=== PATIENT | female | born 1940 | race Caucasian/White ===

== ENCOUNTER 2019-10-21 20:27 | Emergency (ER) | payer MEDICARE, OTHER ==
[2019-10-21] MEDS ORDERED: IV NORMAL SALINE 1,000ML 1,000 ML IV ONE (20:45)
[2019-10-21 21:26] LABS: ALBUMIN/GLOBULIN RATIO 0.8 (1.0-1.7); CALCIUM 8.6 mg/dL (8.5-10.1); CREATININE 0.8 mg/dL (0.6-1.0); GFR 69.4; POTASSIUM 4.5 mmol/L (3.5-5.1); TOTAL BILIRUBIN 0.2 mg/dL (0.2-1.0); TOTAL PROTEIN 6.8 g/dL (6.4-8.2)
[2019-10-21] MEDS ORDERED: levETIRAcetam 500 MG/5 ML VIAL IV ONE (21:34)
[2019-10-21] MEDS ORDERED: IV NORMAL SALINE 100ML 100 ML ONE (21:34)
[2019-10-21 21:37] LABS: PHENY 7.4 mcg/mL (10.0-20.0)
[2019-10-21 23:00] VITALS: BP 169/67
[2019-10-21 23:00] LABS: BILIRUBIN,URINE NEG (NEG); CLARITY,URINE CLEAR; COLOR,URINE STRAW; GLUCOSE,URINE NEG (NEG)
[2019-10-21] MEDS ORDERED: PHENYTOIN SODIUM EXTENDED 100 MG CAPSULE PO ONE (23:00)
[2019-10-21 23:01] LABS: BACTERIA,URINE MANY /HPF (0-FEW); NITRITE,URINE NEG (NEG); RBC,URINE 0 /HPF (0-2); UROBILINOGEN,URINE 0.2 mg/dL (0.2 mg/dL)
[2019-10-21] MEDS ORDERED: CEPH500T PO (23:04)
[2019-10-21] MEDS ORDERED: CEPHALEXIN 250 MG CAPSULE PO ONE (23:30)
--- NOTE | 2019-10-21 23:44 | PHYS DOC ---
Past History Past Medical History: High Cholesterol, Hypertension, Seizure Past Surgical History: No Surgical History Alcohol Use: None Drug Use: None Adult General Chief Complaint Chief Complaint: SEIZURE HPI HPI Patient is a 70-year-old female known epilepsy brought in by embolus after a witnessed seizure normally her takes care of her after she has a seizure which happens once every 2 or 3 months but he got a hip fracture a couple weeks ago so the son is taking care of her now and when he saw the seizure he called 911 he helped her during the seizure there was no head trauma she has now basically back to baseline and has baseline mild confusion no recent illnesses denies fever or vomiting compliant with Dilantin and Keppra Review of Systems Review of Systems Constitutional: Denies fever or chills [] Eyes: Denies change in visual acuity, redness, or eye pain [] HENT: Denies nasal congestion or sore throat [] Respiratory: Denies cough or shortness of breath [] Cardiovascular: No additional information not addressed in HPI [] GI: Denies abdominal pain, nausea, vomiting, bloody stools or diarrhea [] : Denies dysuria or hematuria [] Musculoskeletal: Denies back pain or joint pain [] Integument: Denies rash or skin lesions [] Neurologic: Denies headache, focal weakness or sensory changes [] Endocrine: Denies polyuria or polydipsia [] All other systems were reviewed and found to be within normal limits, except as documented in this note. Current Medications Current Medications Current Medications Medications (Trade) Dose Ordered Sig/Ajay Start Time Stop Time Status Last Admin Dose Admin Cephalexin HCl (Keflex) 500 mg 1X ONCE 10/21/19 23:30 10/21/19 23:31 DC 10/21/19 23:07 500 MG Levetiracetam (Keppra) 500 mg STK-MED ONCE 10/21/19 21:34 10/21/19 21:34 DC Levetiracetam 500 mg/Sodium Chloride 100 ml @ 400 mls/hr 1X ONCE 10/21/19 21:30 10/21/19 21:44 DC 10/21/19 21:39 400 MLS/HR Phenytoin Sodium (Dilantin) 300 mg 1X ONCE 10/21/19 23:00 10/21/19 23:01 DC 10/21/19 22:49 300 MG Sodium Chloride 100 ml @ As Directed STK-MED ONCE 10/21/19 21:34 10/21/19 21:34 DC Allergies Allergies Allergies Coded Allergies Type Severity Reaction Last Updated Verified No Known Drug Allergies 10/21/19 No Physical Exam Physical Exam Constitutional: Well developed, well nourished, no acute distress, non-toxic appearance. [] HENT: Normocephalic, atraumatic, bilateral external ears normal, oropharynx moist, no oral exudates, nose normal. [] Eyes: PERRLA, EOMI, conjunctiva normal, no discharge. [] Neck: Normal range of motion, no tenderness, supple, no stridor. [] Cardiovascular:Heart rate regular rhythm, no murmur [] Lungs & Thorax: Bilateral breath sounds clear to auscultation [] Abdomen: Bowel sounds normal, soft, no tenderness, no masses, no pulsatile masses. [] Skin: Warm, dry, no erythema, no rash. [] Extremities: No tenderness, no cyanosis, no clubbing, ROM intact, no edema. [] Neurologic: Alert and o responsive moving all extremities mild tremor noted at baseline cranial nerves intact, normal motor function, normal sensory function, no focal deficits noted. [] Psychologic: Affect normal, judgement normal, mood normal. [] Current Patient Data Vital Signs Vital Signs Date Time Temp Pulse Resp B/P (MAP) Pulse Ox O2 Delivery O2 Flow Rate FiO2 10/21/19 20:27 98.5 94 18 98 Nasal Cannula 2.0 * None Temperature (Fahrenheit): * 98.5 degrees F (97.6-99.5) Patient Temperature * 98.5 degrees F (97.5-99.5) Temperature Source * Oral Blood Pressure Systolic * 189 mm Hg (100-140) H Blood Pressure Diastolic * 90 mm Hg (60-100) Blood Pressure Mean * 123 mm Hg Blood Pressure Location * Left Arm Blood Pressure Source * Automatic Cuff Pulse Rate * 94 beats per minute (60-90) H Pulse Assessment Method * Monitor Respiratory Rate * 18 breaths per minute (12-24) Oxygen Delivery Method * Nasal Cannula Oxygen Flow Rate Lab Results Laboratory Tests Test 10/21/19 20:30 10/21/19 20:50 10/21/19 22:00 Phenytoin (Dilantin) Level 7.4 mcg/mL (10.0-20.0) L Phenytoin Last Dose Date 10/20/19 Phenytoin Last Dose Time 2100 Sodium Level 135 mmol/L (136-145) L Potassium Level 4.5 mmol/L (3.5-5.1) Chloride Level 98 mmol/L (98-107) Carbon Dioxide Level 31 mmol/L (21-32) Anion Gap 6 (6-14) Blood Urea Nitrogen 26 mg/dL (7-20) H Creatinine 0.8 mg/dL (0.6-1.0) Estimated GFR (Cockcroft-Gault) 69.4 BUN/Creatinine Ratio 33 (6-20) H Glucose Level 123 mg/dL (70-99) H Calcium Level 8.6 mg/dL (8.5-10.1) Total Bilirubin 0.2 mg/dL (0.2-1.0) Aspartate Amino Transferase (AST) 27 U/L (15-37) Alanine Aminotransferase (ALT) 28 U/L (14-59) Alkaline Phosphatase 113 U/L (46-116) Total Protein 6.8 g/dL (6.4-8.2) Albumin 3.0 g/dL (3.4-5.0) L Albumin/Globulin Ratio 0.8 (1.0-1.7) L Urine Collection Type U cath Urine Color Straw Urine Clarity Clear Urine pH 7.0 Urine Specific [place] 1.015 Urine Protein Neg (NEG-TRACE) Urine Glucose (UA) Neg mg/dL (NEG) Urine Ketones (Stick) Neg mg/dL (NEG) Urine Blood Neg (NEG) Urine Nitrite Neg (NEG) Urine Bilirubin Neg (NEG) Urine Urobilinogen Dipstick 0.2 mg/dL (0.2 mg/dL) Urine Leukocyte Esterase Mod (NEG) Urine RBC 0 /HPF (0-2) Urine WBC 11-20 /HPF (0-4) Urine Squamous Epithelial Cells None /LPF Urine Bacteria Many /HPF (0-FEW) EKG EKG [] Radiology/Procedures Radiology/Procedures [] Course & Med Decision Making Course & Med Decision Making Pertinent Labs and Imaging studies reviewed. (See chart for details) []Dilantin level was just slightly low we did give her next dose in the emergency room for now continue current regimen recommended follow-up with primary neurologist in the next week or so to review medication dosages patient and son are agreeable evidence of a possible mild urinary tract infection on the catheter urine sample which could be lowering the seizure threshold so they were prescribed Keflex for that return precautions discussed and they voiced understanding Pratik Disclaimer Pratik Disclaimer This electronic medical record was generated, in whole or in part, using a voice recognition dictation system. Departure Departure: Impression: Primary Impression: UTI (urinary tract infection) Additional Impression: Seizure Disposition: 01 HOME, SELF-CARE Condition: STABLE Patient Instructions: Seizure, Adult, [id number] Scripts Cephalexin (CEPHALEXIN) 500 Mg Tablet 1 TAB PO QID for uti, #40 TAB Prov: CORBY CABRERA MD 10/21/19 Problem Qualifiers CORBY CABRERA MD Oct 21, 2019 23:44
[2019-11-29] MEDS ORDERED: LINE600T12 PO (16:28)
== END 2019-10-21 23:24 | disposition home or self-care (01) ==
LOC: ER 20:27
DX: G40.909 Epilepsy, unspecified, not intractable, without status epilepticus (principal); N39.0 Urinary tract infection, site not specified; E78.00 Pure hypercholesterolemia, unspecified; I10 Essential (primary) hypertension; Z86.73 Personal history of transient ischemic attack (TIA), and cerebral infarction without residual deficits
CPT/HCPCS: 36415; 80053; 80185; 81001; 87086; 87186; 96361; 96365; 99285; J1953; P9612; J7030

== ENCOUNTER 2019-11-08 14:05 | Inpatient (IN) | payer MEDICARE, OTHER ==
[~2019-11-08] VITALS: Ht 175.3 cm; Wt 65.9 kg
[~2019-11-08 14:05] MED LIST: CEPH500T PO
[2019-11-08 14:42] LABS: BASO % 0 % (0-3); EOS % 0 % (0-3); HEMATOCRIT 34.7 % (36.0-47.0); HEMOGLOBIN 11.5 g/dL (12.0-15.5); LYMPH # 0.4 x10^3/uL (1.0-4.8); LYMPH % 2 % (24-48); MEAN CORPUSCULAR HEMOGLOBIN 31 pg (25-35); MEAN CORPUSCULAR HGB CONC 33 g/dL (31-37); MEAN CORPUSCULAR VOLUME 92 fL (79-100); MONO # 1.7 x10^3/uL (0.0-1.1); MONO % 9 % (0-9); NEUT # 17.4 x10^3uL (1.8-7.7); NEUT % 89 % (31-73); PLATELET COUNT 276 x10^3/uL (140-400); RED BLOOD COUNT 3.76 x10^6/uL (3.50-5.40); RED CELL DISTRIBUTION WIDTH 13.4 % (11.5-14.5); WHITE BLOOD COUNT 19.7 x10^3/uL (4.0-11.0)
[2019-11-08 14:53] LABS: ANION GAP 11 (6-14); BLOOD UREA NITROGEN 31 mg/dL (7-20); BUN/CREATININE RATIO 28 (6-20); CALCIUM 8.6 mg/dL (8.5-10.1); CARBON DIOXIDE 26 mmol/L (21-32); CHLORIDE 98 mmol/L (98-107); CREATININE 1.1 mg/dL (0.6-1.0); GLUCOSE 96 mg/dL (70-99); POTASSIUM 3.8 mmol/L (3.5-5.1); SODIUM 135 mmol/L (136-145)
[2019-11-08 15:08] LABS: ALBUMIN 3.1 g/dL (3.4-5.0); ALBUMIN/GLOBULIN RATIO 0.9 (1.0-1.7); ALK PHOS 113 U/L (46-116); ALT (SGPT) 44 U/L (14-59); AST (SGOT) 105 U/L (15-37); MAGNESIUM 1.9 mg/dL (1.8-2.4); PHENY 8.9 mcg/mL (10.0-20.0); TOTAL BILIRUBIN 0.4 mg/dL (0.2-1.0); TOTAL PROTEIN 6.6 g/dL (6.4-8.2)
[2019-11-08] MEDS ORDERED: IV NORMAL SALINE 1,000ML 1,000 ML IV ONE ×2 (15:30→17:30)
--- NOTE | 2019-11-08 15:39 | RAD ---
CHEST AP ONLY 11/08/2019 3:15 PM INDICATION: Shortness of air COMPARISON: 09/06/2013 TECHNIQUE: Portable frontal view of the chest is provided. FINDINGS: The cardiomediastinal silhouette is similar in appearance. Lungs are clear. There are no significant pleural effusions. There is no pulmonary vascular congestion. No pneumothorax. IMPRESSION: There is no acute cardiopulmonary process. Electronically signed by: Charleen Hickman MD (11/08/2019 3:36 PM) [id number]
[2019-11-08] MEDS ORDERED: DIPHTH,PERTUSS(ACELL),TET TOX 0.5 ML DISP.SYRIN. VAX IM ONE (15:45)
--- NOTE | 2019-11-08 15:54 | RAD ---
CT HEAD AND CERVICAL SPINE WO Date: 11/08/2019 3:15 PM Clinical Indication: Seizure, fall, pain Comparison: 09/04/2016. Technique: 5 mm axial tomographic images were obtained of the head without contrast. These were viewed on brain and bone windows. Noncontrast CT of the cervical spine was performed. Sagittal and coronal reformats were performed and evaluated. One or more of the following dose reduction techniques were utilized: Automated exposure control (AEC), Adjustment of mA and/or kV according to patient size, Use of iterative reconstruction technique such as ASiR, CT scan done according to ALARA and image gently/image wisely HEAD FINDINGS: Mild generalized cerebral and cerebellar volume loss. Mild nonspecific periventricular hypoattenuation, most commonly seen with chronic small vessel ischemic disease. No intra- or extra-axial mass or fluid collection. No acute hemorrhage. The ventricles are normal in size, shape, and morphology. The austin-white matter junction is normal. The basilar cisterns are patent. The visualized paranasal sinuses are normal. The visualized portions of the orbits and globes are normal. The mastoid air cells are clear. No aggressive osseous lesion or fracture. CERVICAL SPINE FINDINGS: Reversal of the cervical lordosis centered at C5. Trace anterolisthesis at C2-3 and C3-4. 4 mm anterolisthesis at C4-5. No acute fracture. No aggressive lytic or blastic osseous lesions. Severe multilevel degenerative disc space height loss. Fusion across the facet joints at C2-3, C3-4, and T2-3. Multilevel mild and moderate spinal canal stenosis secondary to disc protrusions and marginal osteophytes, moderate to severe at C4-5. Multilevel moderate to severe neuroforaminal narrowing secondary to uncovertebral arthrosis. Multilevel moderate to severe facet arthrosis. 1.4 cm left thyroid nodule. No cervical lymphadenopathy. Carotid artery atherosclerosis. The visualized aerodigestive tract is normal. The visualized portions of the lungs are clear. IMPRESSION: 1. No acute intracranial process. 2. No acute cervical spine fracture. 3. Advanced cervical spondylosis. Electronically signed by: Jaron Islas MD (11/08/2019 3:51 PM) [facility]
[2019-11-08] MEDS ORDERED: FOSPHENYTOIN 1,000 MG in IV NORMAL SALINE 50ML 50 ML IV ONE (16:15)
--- NOTE | 2019-11-08 16:36 | PHYS DOC ---
Past History Past Medical History: CVA, Diabetes, Hypertension, Seizure, Other Additional Past Medical Histor: HLD Past Surgical History: No Surgical History Alcohol Use: None Drug Use: None Adult General Chief Complaint Chief Complaint: WEAKNESS/GENERALIZED HPI HPI Patient is a 78-year-old female who was brought here from home by EMS due to weakness. Patient has history of epilepsy, she is on Dilantin at home. Patient says she took her medication yesterday but she had a seizure last night. SHe feel really weak and tired afterward. Patient was found on the floor this morning by her . She could not get up due to weakness. Patient denies any headache, no neck pain, no chest pain, no abdominal pain, no pelvic pain, no extremity or pelvic pain. She just feel weak and tired. She denies any fever. She says she had not taken her medication today. aLL OTHER ros IS NEGATIVE UNLESS OTHERWISE NOTED IN hpi Review of Systems Review of Systems See above Current Medications Current Medications Current Medications Medications (Trade) Dose Ordered Sig/Ajay Start Time Stop Time Status Last Admin Dose Admin Diphtheria/ Tetanus/Acell Pertussis (Boostrix) 0.5 ml ONCE ONCE 11/08/19 15:45 11/08/19 15:46 DC 11/08/19 16:05 0.5 ML Fosphenytoin Sodium 1000 mg/ Sodium Chloride 70 ml @ 280 mls/hr 1X ONCE 11/08/19 16:15 11/08/19 16:29 DC Sodium Chloride 1,000 ml @ 1,000 mls/hr 1X ONCE 11/08/19 15:30 11/08/19 16:29 DC 11/08/19 16:04 1,000 MLS/HR Allergies Allergies Allergies Coded Allergies Type Severity Reaction Last Updated Verified No Known Drug Allergies 10/21/19 No Physical Exam Physical Exam See above Constitutional: Well developed, well nourished, no acute distress, non-toxic appearance. [] HENT: Normocephalic, atraumatic, bilateral external ears normal, oropharynx moist, no oral exudates, nose normal. [] Eyes: PERRLA, EOMI, conjunctiva normal, no discharge. [] Neck: Normal range of motion, no tenderness, supple, no stridor. [] Cardiovascular:Heart rate regular rhythm, no murmur [] Lungs & Thorax: Bilateral breath sounds clear to auscultation [] Abdomen: Bowel sounds normal, soft, no tenderness, no masses, no pulsatile masses. [] Skin: HEMORRHAGIC RASH ON BOTH UPPER EXTREMITIES. SMALL SUPERFICIAL SKIN CONTUSION, ABRSION ON LEFT FOREARM, NO BONY TENDERNESS. Back: No tenderness, no CVA tenderness. [] Extremities: No tenderness, no cyanosis, no clubbing, ROM intact, no edema. [] Neurologic: Alert and oriented X 3, NORMAL SPEECH, normal sensory function, PATIENT CAN PUSH HER FEET DOWN BUT NOT ABLE TO RAISE BOTH LEGS UP DUE TO WEAKNESS, NO BONY TENDERNESS. Psychologic: Affect normal, judgement normal, mood normal. [] Current Patient Data Vital Signs Vital Signs Date Time Temp Pulse Resp B/P (MAP) Pulse Ox O2 Delivery O2 Flow Rate FiO2 11/08/19 16:05 78 18 135/78 (97) 98 11/08/19 14:27 98.4 Room Air Lab Results Laboratory Tests Test 11/08/19 14:15 White Blood Count 19.7 x10^3/uL (4.0-11.0) H Red Blood Count 3.76 x10^6/uL (3.50-5.40) Hemoglobin 11.5 g/dL (12.0-15.5) L Hematocrit 34.7 % (36.0-47.0) L Mean Corpuscular Volume 92 fL (79-100) Mean Corpuscular Hemoglobin 31 pg (25-35) Mean Corpuscular Hemoglobin Concent 33 g/dL (31-37) Red Cell Distribution Width 13.4 % (11.5-14.5) Platelet Count 276 x10^3/uL (140-400) Neutrophils (%) (Auto) 89 % (31-73) H Lymphocytes (%) (Auto) 2 % (24-48) L Monocytes (%) (Auto) 9 % (0-9) Eosinophils (%) (Auto) 0 % (0-3) Basophils (%) (Auto) 0 % (0-3) Neutrophils # (Auto) 17.4 x10^3uL (1.8-7.7) H Lymphocytes # (Auto) 0.4 x10^3/uL (1.0-4.8) L Monocytes # (Auto) 1.7 x10^3/uL (0.0-1.1) H Eosinophils # (Auto) 0.0 x10^3/uL (0.0-0.7) Basophils # (Auto) 0.0 x10^3/uL (0.0-0.2) Sodium Level 135 mmol/L (136-145) L Potassium Level 3.8 mmol/L (3.5-5.1) Chloride Level 98 mmol/L (98-107) Carbon Dioxide Level 26 mmol/L (21-32) Anion Gap 11 (6-14) Blood Urea Nitrogen 31 mg/dL (7-20) H Creatinine 1.1 mg/dL (0.6-1.0) H Estimated GFR (Cockcroft-Gault) 48.0 BUN/Creatinine Ratio 28 (6-20) H Glucose Level 96 mg/dL (70-99) Calcium Level 8.6 mg/dL (8.5-10.1) Magnesium Level 1.9 mg/dL (1.8-2.4) Total Bilirubin 0.4 mg/dL (0.2-1.0) Aspartate Amino Transferase (AST) 105 U/L (15-37) H Alanine Aminotransferase (ALT) 44 U/L (14-59) Alkaline Phosphatase 113 U/L (46-116) Creatine Kinase 5808 U/L (26-192) H Troponin I Quantitative 0.380 ng/mL (0-0.055) H Total Protein 6.6 g/dL (6.4-8.2) Albumin 3.1 g/dL (3.4-5.0) L Albumin/Globulin Ratio 0.9 (1.0-1.7) L Phenytoin (Dilantin) Level 8.9 mcg/mL (10.0-20.0) L Phenytoin Last Dose Date 11/07/19 Phenytoin Last Dose Time 1200 EKG EKG EKG RATE OF 78 BPM, NO STEMI, READ AT 0310 PM Radiology/Procedures Radiology/Procedures [][address] [address] IMAGING REPORT Signed PATIENT: GRABIEL DUKES ACCOUNT: [id number] : 1940 LOCATION: ER AGE: 78 SEX: F EXAM STATUS: REG ER ORD. PHYSICIAN: FLORY SMITH DO REASON: HAD SEIZURE, FELL DOWN, HEADACHE, NECK PAIN PROCEDURE: CT HEAD AND CERVICAL SPINE WO CT HEAD AND CERVICAL SPINE WO Date: 11/08/2019 3:15 PM Clinical Indication: Seizure, fall, pain Comparison: 09/04/2016. Technique: 5 mm axial tomographic images were obtained of the head without contrast. These were viewed on brain and bone windows. Noncontrast CT of the cervical spine was performed. Sagittal and coronal reformats were performed and evaluated. One or more of the following dose reduction techniques were utilized: Automated exposure control (AEC), Adjustment of mA and/or kV according to patient size, Use of iterative reconstruction technique such as ASiR, CT scan done according to ALARA and image gently/image wisely HEAD FINDINGS: Mild generalized cerebral and cerebellar volume loss. Mild nonspecific periventricular hypoattenuation, most commonly seen with chronic small vessel ischemic disease. No intra- or extra-axial mass or fluid collection. No acute hemorrhage. The ventricles are normal in size, shape, and morphology. The austin-white matter junction is normal. The basilar cisterns are patent. The visualized paranasal sinuses are normal. The visualized portions of the orbits and globes are normal. The mastoid air cells are clear. No aggressive osseous lesion or fracture. CERVICAL SPINE FINDINGS: Reversal of the cervical lordosis centered at C5. Trace anterolisthesis at C2-3 and C3-4. 4 mm anterolisthesis at C4-5. No acute fracture. No aggressive lytic or blastic osseous lesions. Severe multilevel degenerative disc space height loss. Fusion across the facet joints at C2-3, C3-4, and T2-3. Multilevel mild and moderate spinal canal stenosis secondary to disc protrusions and marginal osteophytes, moderate to severe at C4-5. Multilevel moderate to severe neuroforaminal narrowing secondary to uncovertebral arthrosis. Multilevel moderate to severe facet arthrosis. 1.4 cm left thyroid nodule. No cervical lymphadenopathy. Carotid artery atherosclerosis. The visualized aerodigestive tract is normal. The visualized portions of the lungs are clear. IMPRESSION: 1. No acute intracranial process. 2. No acute cervical spine fracture. 3. Advanced cervical spondylosis. Electronically signed by: Sky Islas MD (11/08/2019 3:51 PM) [facility] DICTATED AND SIGNED BY: SKY ISLAS MD DATE: 11/08/19 1551 CC: AMARIS NICHOLE MD; FLORY SMITH DO ~ [place] [address] IMAGING REPORT Signed PATIENT: GRABIEL DUKES ACCOUNT: [id number] : 1940 LOCATION: ER AGE: 78 SEX: F EXAM STATUS: REG ER ORD. PHYSICIAN: FLORY SMITH DO REASON: SOA PROCEDURE: CHEST AP ONLY CHEST AP ONLY 11/08/2019 3:15 PM INDICATION: Shortness of air COMPARISON: 09/06/2013 TECHNIQUE: Portable frontal view of the chest is provided. FINDINGS: The cardiomediastinal silhouette is similar in appearance. Lungs are clear. There are no significant pleural effusions. There is no pulmonary vascular congestion. No pneumothorax. IMPRESSION: There is no acute cardiopulmonary process. Electronically signed by: River Ralph MD (11/08/2019 3:36 PM) [facility] DICTATED AND SIGNED BY: RIVER RALPH MD DATE: 11/08/19 1536 CC: AMARIS NICHOLE MD; FLORY SMITH DO ~ Course & Med Decision Making Course & Med Decision Making Pertinent Labs and Imaging studies reviewed. (See chart for details) [] Dragon Disclaimer Dragon Disclaimer This electronic medical record was generated, in whole or in part, using a voice recognition dictation system. Departure Departure: Impression: Primary Impression: Seizure Additional Impression: Rhabdomyolysis Disposition: ADMITTED INPATIENT Admitting Physician: Cali Lopez Condition: STABLE Referrals: AMARIS NICHOLE MD (PCP) Problem Qualifiers FLORY SMITH DO Nov 08, 2019 16:36
[2019-11-08 17:29] LABS: BILIRUBIN,URINE NEG (NEG); CLARITY,URINE HAZY; COLOR,URINE YELLOW; GLUCOSE,URINE NEG (NEG); NITRITE,URINE NEG (NEG); UROBILINOGEN,URINE 0.2 mg/dL (0.2 mg/dL)
[2019-11-08 17:30] LABS: BACTERIA,URINE MOD /HPF (0-FEW); HYALINE CASTS, URINE OCC /HPF; SQUAMOUS EPITHELIAL CELL,UR OCC /LPF
[2019-11-08] MEDS ORDERED: ONDANSETRON PF 4 MG/2 ML VIAL. IV PRN (17:30)
[2019-11-08] MEDS: IV NORMAL SALINE 1,000ML 1,000 ML IV SCH ×2 (17:35→20:47)
[2019-11-08 19:20] VITALS: BP 144/62
--- NOTE | 2019-11-08 19:20 | NUR ---
Pt admitted from ER to ICU bed 4 via gurney, accompanied by EMS and nursing staff. Pt here for Seizure, Rhabdo, and weakness. Pt very forgetful and confused, currently asking about "Ishmael's () medications." Admission assessment completed. Dominick history & home medications reviewed with pt's son Faheem over the phone since pt in confused. Faheem stated that his "mother followed Ishmael into the bathroom at home around 0200 and fell in the bathroom. Dad was not able to help her get up since he had a recent hip sx, so mom laid on the floor till I got there to help around 0800." Pt with multiple skin tears and extensive bruising to both upper arms and small abrasion to right bashir. Pt oriented to room, bed and call light but needs frequent reminders r/t confusion. Pt refused Flu vaccine. SCDs for VTE. Pt lives at home with and requires lots of help from Faheem (son). Dr Caballero consult placed. PT/OT and CM consulted. Bed padded for Seizure precautions. Bed alarm in place.
[2019-11-08] MEDS ORDERED: AMLO10TA8 PO (19:48)
[2019-11-08] MEDS ORDERED: PHEN100C4 PO (19:48)
[2019-11-08] MEDS ORDERED: LISI10TA2 PO (19:48)
[2019-11-08] MEDS ORDERED: ATOR10TA60 PO (19:48)
[2019-11-08] MEDS ORDERED: LEVE10007 PO (19:48)
[2019-11-08 20:05] VITALS: BP 130/62
[2019-11-08] MEDS: levETIRAcetam 500 MG TABLET PO SCH (20:47)
[2019-11-08] MEDS: PHENYTOIN SODIUM EXTENDED 100 MG CAPSULE PO SCH (20:47)
[2019-11-08 21:00] VITALS: BP 147/55
[2019-11-08] MEDS ORDERED: ATORVASTATIN CALCIUM 10 MG TABLET. PO SCH (21:00)
[2019-11-08 23:00] VITALS: BP 153/67
--- NOTE | 2019-11-08 23:25 | NUR ---
Pt yelled out "help...help...help me". When staff entered room Pt started shaking all four extremities and became very agitated and confused. Pt did talk during this 'shaking episode' stating "move the cranberry juice" & "put his legs down". Pt reaching for objects in the air that are not there. When pt was talked to she did calm down and stopped shaking but would start back up again if she was not distracted by staff. PRN Ativan given. Pt now resting comfortable.
[2019-11-08 23:35] VITALS: BP 148/70
[2019-11-09] VITALS (10 sets, daily range): BP systolic 127–168; BP diastolic 48–80
[2019-11-09 00:12] LABS: % BASOS 1 % (0-3); % LYMPHS 4 % (24-48); % MONOS 6 % (0-10); % SEGS 89 % (35-66)
[2019-11-09 00:14] LABS: ANISOCYTOSIS SLIGHT; PLT ESTIMATE ADEQUATE (ADEQUATE)
--- NOTE | 2019-11-09 01:00 | EKG ---
[address] [address] Test Date: 2019-11-08 Test Time: 15:09:59 Pat Name: GRABIEL DUKES Department: Room: Gender: [employer] Re[employer]ist: : 1940 Requested By: FLORY SMITH Order Number: [id number] Reading MD: Measurements Intervals [place] Rate: 78 P: 76 [place]: 160 QRS: 60 QRSD: 86 T: 69 QT: 410 QTc: 471 Interpretive Statements SINUS RHYTHM NORMAL ECG RI6.01 No previous ECG available for comparison
[2019-11-09] MEDS: IV NORMAL SALINE 1,000ML 1,000 ML IV SCH (05:45)
[2019-11-09 06:22] LABS: BASO % 1 % (0-3); EOS % 0 % (0-3); HEMATOCRIT 31.9 % (36.0-47.0); HEMOGLOBIN 10.7 g/dL (12.0-15.5); LYMPH # 1.1 x10^3/uL (1.0-4.8); LYMPH % 12 % (24-48); MEAN CORPUSCULAR HEMOGLOBIN 31 pg (25-35); MEAN CORPUSCULAR HGB CONC 34 g/dL (31-37); MEAN CORPUSCULAR VOLUME 93 fL (79-100); MONO % 11 % (0-9); NEUT % 76 % (31-73); PLATELET COUNT 229 x10^3/uL (140-400); RED BLOOD COUNT 3.42 x10^6/uL (3.50-5.40); WHITE BLOOD COUNT 9.2 x10^3/uL (4.0-11.0)
[2019-11-09 06:41] LABS: ALBUMIN 2.7 g/dL (3.4-5.0); ALBUMIN/GLOBULIN RATIO 0.8 (1.0-1.7); CALCIUM 7.9 mg/dL (8.5-10.1); CREATININE 0.8 mg/dL (0.6-1.0); GFR 69.4; POTASSIUM 3.4 mmol/L (3.5-5.1); TOTAL BILIRUBIN 0.3 mg/dL (0.2-1.0)
[2019-11-09] MEDS: LISINOPRIL 10 MG TABLET PO SCH (12:01)
[2019-11-09] MEDS: amLODIPine BESYLATE 10 MG TABLET PO SCH (12:01)
[2019-11-09] MEDS: levETIRAcetam 500 MG TABLET PO SCH ×2 (12:01→20:48)
[2019-11-09] MEDS: POTASSIUM CL 20MEQ D5-0.9%NACL 1,000 ML IV SCH (15:01)
--- NOTE | 2019-11-09 15:11 | HP ---
ADMIT DATE: 11/08/2019 HISTORY OF PRESENT ILLNESS: The patient is a 78-year-old female patient, who was brought into the Emergency Room by EMS due to weakness. The patient has a history of epilepsy. She is on Dilantin at home. She stated that she took her medication yesterday, but has had a seizure last night. She felt really weak and tired afterward. The patient was found on the floor this morning by her . She could not get up due to weakness. The patient denies any headache, neck pain, chest pain, abdominal pain, just feels weak and tired. She was extensively investigated in the Emergency Room and her lab work showed that her white cell count was high at 19,700. Her chemistry showed that her BUN was slightly elevated and obviously dehydrated. Her CK was high at 5800. Her troponin was 0.38 and her Dilantin level was only 8.9. Urinalysis was unremarkable; however, chest x-ray showed that there was no significant pleural effusion, no pulmonary vascular congestion or pneumothorax. The patient was admitted with diagnosis of breakthrough seizures as well as mild rhabdomyolysis. She was given a loading dose of fosphenytoin and was admitted to continue on IV fluid, continue on her Keppra as well as all other medications. PAST MEDICAL HISTORY: Significant for hypertension, seizure disorder, osteoarthritis, senile macular degeneration. PAST SURGICAL HISTORY: Significant for tonsillectomy. FAMILY HISTORY: Noncontributory. SOCIAL HISTORY: She lives with her . She does not smoke, drink alcohol or use recreational drugs. ALLERGIES: She has no known drug allergies. MEDICATIONS: She is currently on following medications: She is on atorvastatin calcium 10 mg at bedtime, lisinopril 10 mg daily, phenytoin sodium 300 mg at bedtime, levetiracetam 1000 mg twice a day. REVIEW OF SYSTEMS: Unobtainable. PHYSICAL EXAMINATION: GENERAL: On arrival to the Emergency Room, the patient looked well and was clearly in no apparent respiratory distress, pale, but no jaundice, cyanosis or thyromegaly. No jugular venous distention. No lower limb edema. VITAL SIGNS: Her heart rate was 80, blood pressure 135/78, temperature was 98.1, respiratory rate was 20, and oxygen saturation was 97%. HEAD, EYES, EARS, NOSE AND THROAT: Showed normocephalic, atraumatic. NECK: Supple. HEART: Showed normal first and second heart sounds. No gallop, rub or murmur. CHEST: Clear to auscultation. No crepitation or rhonchi. ABDOMEN: Distended, soft, nontender. NEUROLOGIC: She was alert, oriented. She apparently has been complaining of weakness, mostly on the left side more than the right. LABORATORY DATA: Her lab work on arrival to the Emergency Room yesterday showed a white cell count of 19,700, hemoglobin 11.5, hematocrit 34.7, MCV 92 and platelet count 276,000 with normal manual differential. Her chemistry showed a serum sodium 135, potassium 3.8, chloride 98, bicarbonate 26, anion gap of 11, BUN 31, creatinine 1.1, estimated GFR was 48 mL per minute. Her glucose was 96, calcium was 8.6, magnesium 1.9. Total bilirubin, ALT, alkaline phosphatase normal. AST slightly elevated. Her CK was high at 5800. First troponin was 0.380. Total protein was 6.6, albumin was 3.1. Her urinalysis showed the urine was yellow, hazy with a pH of 6, specific gravity of 1.015. The urine was negative for protein, glucose, there was small amount of ketones, moderate amount of blood, negative for nitrite, there is trace of leukocyte esterase, 1-2 rbc's, 1-4 wbc's, moderate amount of bacteria and her phenytoin level was 9.8 mcg/mL with therapeutic range between 10 and 20. RADIOGRAPHIC DATA: Her CT scan of the head and cervical spine showed that the patient has mild generalized cerebral and cerebellar volume loss, mild nonspecific periventricular hypoattenuation most commonly seen with chronic small vessel ischemic disease. There is no intra or extraaxial mass or fluid collection or acute hemorrhage. The ventricles are normal in size, shape and morphology. The austin-white matter junction is normal. The basilar cisterns are patent. The visualized paranasal sinuses are normal. The visualized portion of the orbits and globes are normal. The mastoid air cells are clear. No aggressive osseous lesions or fracture. The CT scan of the cervical spine showed that reversal of cervical lordosis centered at C5, trace anterolisthesis at C2-C3 and C3-C4, 4 mm anterolisthesis at C4-C5, no acute fracture, no aggressive lytic or blastic osseous lesion. Severe multilevel degenerative disk space height loss, fusion across the facet joint of C2-C3, C3-C4 and T2-T3; multilevel mild and moderate spinal canal stenosis secondary to disk protrusion and marginal osteophytes moderate to severe at C4-C5, multilevel moderate to severe neural foraminal narrowing secondary to uncovertebral arthrosis, multilevel moderate to severe facet arthrosis. It has 1.4 cm left thyroid nodule. No cervical lymphadenopathy, carotid artery atherosclerosis visualized, aerodigestive tract is normal. ASSESSMENT AND PLAN: The patient was admitted with weakness, breakthrough seizures and rhabdomyolysis. We will put her back on her antiepileptic medication. Continue with all other medication. Continue with intravenous fluids for rhabdomyolysis and dehydration. We will consult Physical and Occupational Therapy and will consult Dr. Caballero to assist with her management. PRIYANKA BROWN MD DR: JOHNNY/julia JOB#: [id number] / [id number]
--- NOTE | 2019-11-09 18:06 | NUR ---
Patient has been alert throughout the day but is confused and disoriented. Patient is a poor historian and is unable to accurately articulate current affairs or past medical history. Patient has been pleasant and cooperative throughout the day but as the evening progresses she seems to display signs and symptoms of "Sundowners" with some aggressive behaviors appearing. Patient is very weak and unstable and requires 2 person assist for any transfers or ambulation. Patients son came to visit today and he did inquire about rehab upon discharge and this information was passed onto Dr Lopez.
[2019-11-09] MEDS: PHENYTOIN SODIUM EXTENDED 100 MG CAPSULE PO SCH (20:48)
--- NOTE | 2019-11-09 20:54 | PN ---
DATE: 11/09/2019 SUBJECTIVE: The patient was admitted yesterday for fall, breakthrough seizures and mild rhabdomyolysis. She was given a loading dose of fosphenytoin and was continued on her Keppra and her phenytoin and all her other medications. I saw her today, she was awake, alert, but extremely confused. Her short-term memory is extremely poor. She continued to complain of weakness, more so on the left side than right. PHYSICAL EXAMINATION: GENERAL: When I examined her, she looked pale, but no jaundice or cyanosis. No lymphadenopathy, no thyromegaly. No jugular venous distention. No limb edema. VITAL SIGNS: Her heart rate was 79, blood pressure was 168/80, temperature 97.7, respiratory rate was 20, and oxygen saturation was 94%. HEAD, EYES, EARS, NOSE AND THROAT: Normocephalic, atraumatic. NECK: Supple. CARDIAC: Normal first and second heart sounds with no gallop, rub or murmur. CHEST: Showed that she has a central trachea, equal bilateral expansion, air entry, vesicular sounds. I could not appreciate any crepitation or rhonchi. ABDOMEN: Distended, soft, nontender. No guarding or rigidity. No organomegaly. All hernial orifice intact. Bowel sounds normal. NEUROLOGIC: She is awake, alert, but very confused; however, all her cranial nerves are intact. She moves extremities without difficulty. She does have weakness in the left side. Her intake over the last 24 hours and output are incompletely recorded. LABORATORY DATA: Her lab work this morning showed a serum sodium 138, potassium 3.4, chloride 103, bicarbonate 25, anion gap of 10, BUN 22, creatinine 0.8, estimated GFR was 69 mL per minute. Her glucose 72, calcium was 7.9. Total bilirubin, AST, ALT, alkaline phosphatase were normal. CK was down to 4000. She has 3 sets of troponins that are trending down and her total protein was 6, albumin was 2.7. PLAN: My plan is to continue with IV fluid. I will probably change the normal saline with some potassium and we will get the physical and occupational therapy. The patient was too weak to go back home. She will benefit from rehabilitation probably in a swing bed. PRIYANKA BROWN MD DR: JOHNNY/julia JOB#: [id number] / [id number]
[2019-11-10] VITALS (7 sets, daily range): BP systolic 160–191; BP diastolic 61–87
[2019-11-10] MEDS: POTASSIUM CL 20MEQ D5-0.9%NACL 1,000 ML IV SCH ×2 (01:20→11:04)
--- NOTE | 2019-11-10 03:42 | NUR ---
PATIENT UP TO CHAIR UNTIL READY FOR BED. HOARSE, BARKING COUGH WITH NO SPUTUM PRODUCTION. STATES WHEN SHE COUGHS, HER "TRACHEA COLLAPSES" AND SHE HAD TO GO TO TO HAVE HER LUNGS "VACCUMED OUT". [place] [facility] [place], NO BM THIS SHIFT. DENIES PAIN. REMAINS IN ISOLATION. WORKING TOWARDS POC GOALS. Addendum: 11/10/19 at 0346 by TONO CANTRELL RN RN DISREGARD PREVIOUS NOTE, WRONG PATIENT
--- NOTE | 2019-11-10 03:46 | NUR ---
PATIENT IN BED FOR ENTIRETY OF SHIFT. VERY CONFUSED AT TIMES, STATES SHE IS IN AT A HOTEL, ANOTHER TIME MENTIONS A FRIENDS HOUSE. REPEATEDLY ASKS WHERE HER IS. FREQUENT REORIENTING NEEDED. LAROSE DRAINING ADEQUATE AMOUNTS OF URINE. DENIES PAIN, SOA OR N/V. NOT PROGRESSING TOWARDS POC GOALS.
[2019-11-10] MEDS: amLODIPine BESYLATE 10 MG TABLET PO SCH (04:48)
[2019-11-10 06:47] LABS: HEMATOCRIT 35.5 % (36.0-47.0); HEMOGLOBIN 11.8 g/dL (12.0-15.5); RED BLOOD COUNT 3.86 x10^6/uL (3.50-5.40); RED CELL DISTRIBUTION WIDTH 13.7 % (11.5-14.5); WHITE BLOOD COUNT 10.6 x10^3/uL (4.0-11.0)
[2019-11-10 07:04] LABS: PHENY 24.2 mcg/mL (10.0-20.0)
[2019-11-10 07:14] LABS: ALBUMIN 2.7 g/dL (3.4-5.0); ALBUMIN/GLOBULIN RATIO 0.7 (1.0-1.7); CALCIUM 7.9 mg/dL (8.5-10.1); CREATININE 0.7 mg/dL (0.6-1.0); GFR 80.9; POTASSIUM 3.3 mmol/L (3.5-5.1); TOTAL BILIRUBIN 0.3 mg/dL (0.2-1.0); TOTAL PROTEIN 6.4 g/dL (6.4-8.2)
--- NOTE | 2019-11-10 07:29 | NUR ---
PT IS ALERT BUT CONFUSED AT THIS TIME; PT DOES NOT KNOW HER LOCATION, THE PRESIDENT AND WHY SHE IS IN THE HOSPITAL. PT STATES "I AM HERE FOR A STROKE, AND MY IS RIGHT THERE." PT'S IS NOT IN HER ROOM AT THIS TIME. PT IS HALLUCINATING AND SEEING THINGS ON THE WALL. PT IS PLEASANT AND COOPERATIVE. VSS STABLE TEMP- 99.1 BP- 190/92 RR-16 SPO2-96% RA. DENIES PAIN AT THIS TIME. WILL CTM.
[2019-11-10] MEDS: LISINOPRIL 10 MG TABLET PO SCH ×3 (07:32→19:48)
[2019-11-10] MEDS: levETIRAcetam 500 MG TABLET PO SCH ×2 (07:32→21:12)
--- NOTE | 2019-11-10 11:06 | CONS ---
DATE OF CONSULTATION: 11/09/2019 NEUROLOGY CONSULTATION REFERRING PHYSICIAN: Dr. Lopez. REASON FOR CONSULTATION: Breakthrough seizure. HISTORY OF PRESENT ILLNESS: This is a 78-year-old right-handed female who was admitted through Emergency Room after she presented with possible seizure-like activities, followed by generalized weakness. The found the patient on the morning of admission. EMS was activated and transferred the patient to Emergency Room weighing she has a complete evaluation. The patient has had a history of seizure of unknown etiology. Currently, she is unable to remember what happened exactly before the seizure. The patient at this time is not able to provide concrete information about her seizure activities. She has been on Dilantin, but Dilantin level in the Emergency Room was subtherapeutic. The patient was given a loading dose of fosphenytoin and continued with Keppra at 1000 twice daily. Since admission, the patient has not had any recurrent seizure. She received 1 Ativan last night. PAST MEDICAL HISTORY: Significant for seizure disorder of unknown etiology, hypertension, macular degeneration, and osteoarthritis. PAST SURGICAL HISTORY: Tonsillectomy. FAMILY HISTORY: Noncontributory. SOCIAL HISTORY: The patient lives with her . She denies smoking, alcohol drinking, or illicit drug use. CURRENT HOME MEDICATIONS: Phenytoin 300 mg at bedtime, levetiracetam 1000 mg twice daily, lisinopril 10 mg daily and atorvastatin calcium 10 mg at bedtime. ALLERGIES: No known drug allergies. REVIEW OF SYSTEMS: A 10-point review of system was performed as mentioned above in history of present illness. Otherwise, the patient denies any other medical or neurological complaints at this time. PHYSICAL EXAMINATION: GENERAL: Well-developed, well-nourished female in no acute distress. She weighs 61.2 kilos, the height is 69 inches. VITAL SIGNS: Blood pressure 128/56, respiratory rate 14, pulse is 67 and regular, oxygen saturation is 95% on room air. HEENT: Normocephalic, atraumatic, otherwise unremarkable. NECK: Supple. Negative for carotid bruit, lymphadenopathy or thyromegaly. LUNGS: Clear to A and P. CARDIOVASCULAR: Regular rate and rhythm. Normal S1, S2. There is no S3, S4 or murmur. ABDOMEN: Soft. Bowel sounds positive. EXTREMITIES: Negative for cyanosis, clubbing or pitting edema. NEUROLOGICAL EXAMINATION: MENTAL STATUS: The patient is alert and oriented to herself and place. Speech is fluent. There is no language dysfunction. Memory, judgment, and abstract thinking are fair. The patient denies hallucination or delusion. CRANIAL NERVES: Visual wasserman are full. The pupils are reactive to light and accommodation. Extraocular movements are intact. There is no nystagmus. There is no facial motor or sensory deficit. Hearing is intact bilaterally. The palate is elevated symmetrically. Sternocleidomastoid muscles are powerful bilaterally. The patient shrugs her shoulders symmetrically, protrudes her tongue in the midline without fasciculation or atrophy. MOTOR: No focal muscle bulk was seen. The tone is normal. The strength is 4/5 throughout. Sensory examination revealed normal pinprick, light touch, vibratory and position senses. Deep tendon reflexes were asymmetric and hypoactive with absent Achilles responses. Gait not tested. DIAGNOSTIC DATA: Chest x-ray revealed no acute cardiopulmonary process. Nonenhanced head CT scan revealed no acute intracranial process. Cervical spine CT scan revealed severe multilevel degenerative disk disease, more prominent at C4-C5, but no cervical spine fracture. These findings are consistent with advanced cervical spondylosis. LABORATORY DATA: CBC revealed white blood cells of 9200, hemoglobin is 10.7, hematocrit 31.9, platelet count 229. Chemistry revealed sodium of 138, potassium 3.4, chloride 103, CO2 of 25, BUN 22, creatinine 0.8, glucose 72, calcium 7.9. CPK is elevated at 4041. Troponin level is 0.192. BNP is high at 2399. Urinalysis is trace urinary leukocyte esterase with moderate bacteria. Phenytoin level at the day of admission was subtherapeutic at 8.9. IMPRESSION: 1. Generalized weakness and possible postictal confusion and breakthrough seizure with subtherapeutic Dilantin level at 8.9. 2. History of seizure disorder of unknown etiology. 3. Status post fall with abnormal CT of the cervical spine consistent with [id number] spondylosis. 4. Multiple medical problems include hypertension, osteoarthritis, and macular degeneration. RECOMMENDATIONS: 1. Continue with current anticonvulsant with Dilantin 300 mg at bedtime; levetiracetam (Keppra) 1000 mg twice daily. 2. We will check phenytoin level in the morning, 11/10/2019. 3. Hydration and potassium supplements. M Ginger LENZ MD DR: FLORY/julia JOB#: [id number] / [id number]
[2019-11-10] MEDS: hydrALAZINE 20 MG/ML VIAL. IV PRN ×2 (14:51→21:13)
[2019-11-10] MEDS: POTASSIUM CHLORIDE 20 MEQ TABLET.ER. PO SCH ×2 (14:51→21:12)
[2019-11-10] MEDS: PHENYTOIN SODIUM EXTENDED 100 MG CAPSULE PO SCH (17:40)
--- NOTE | 2019-11-11 00:18 | PN ---
DATE: 11/10/2019 SUBJECTIVE: The patient is resting slightly propped up in bed, in no apparent respiratory distress. She is extremely confused, disoriented. She cannot even feed herself and unable to assist with any movement to change her position. PHYSICAL EXAMINATION: GENERAL: When I examined her, she was, however, somewhat pale, not jaundiced, cyanosis or thyromegaly. No jugular venous distention. No limb edema. VITAL SIGNS: Her heart rate was 90, blood pressure was 170/80, temperature was 98.8, respiratory rate was 20, and oxygen saturation was 98%. HEAD, EYES, EARS, NOSE AND THROAT: Normocephalic, atraumatic. NECK: Supple. HEART: Showed normal first and second heart sounds. No gallop or murmur. CHEST: Clear to auscultation. No crepitation or rhonchi. ABDOMEN: Distended, soft, nontender. No guarding or rigidity. No organomegaly. All hernial orifice intact. Bowel sounds normal. NEUROLOGICALLY: She is awake, alert, but extremely confused and disoriented; however, all her cranial nerves are intact. EXTREMITIES: She moves upper extremities to much good extent than lower extremities. She is mostly bedbound. Her intake was 3376, output was 1325. LABORATORY DATA: Her lab work showed a white cell count of 10,600, hemoglobin 12, hematocrit 36, MCV 92, and platelet count 241,000. Her chemistry showed a serum sodium 135, potassium 3.3, chloride 102, bicarbonate 26, anion gap of 7, BUN 11, creatinine 0.7, estimated GFR was 80 mL per minute. Her glucose 117, calcium was 7.9. Her total bilirubin, ALT, alkaline phosphatase were normal. Her AST is slightly elevated, although trending down. Her total protein was 6.4, albumin was 2.7. Her 3 sets of cardiac enzymes are trending down. Her CK is down from 6000 to 2000. Urinalysis was essentially unremarkable. Toxic screen showed her phenytoin level to be high at 24. ASSESSMENT AND PLAN: 1. Breakthrough seizures, continues to be in postictal state. 2. Rhabdomyolysis, improving. Her CK is coming down from 6000 to around 2000. 3. Acute kidney injury, improving. Her creatinine is coming down from 1.1 down to 0.7. 4. Hypokalemia, which we started her on potassium supplement. 5. Suboptimally controlled hypertension. I increased her lisinopril to 10 mg twice a day. We will discontinue her IV fluid. We will check her phenytoin level tomorrow and we will obviously get consult physical and occupational therapy to evaluate and treat. PRIYANKA BROWN MD DR: JOHNNY/julia JOB#: [id number] / [id number]
--- NOTE | 2019-11-11 00:23 | PN ---
DATE: REFERRING PHYSICIAN: Dr. Lopez. SUBJECTIVE: The patient denies any new medical or neurological complaints. She has not had any seizures since admission; however, the patient has been disoriented and confused this morning. Dilantin level this morning is 24.2. She eats and drinks well, but she continues to have generalized weakness. OBJECTIVE: GENERAL: Well-developed and well-nourished female, not in acute distress. VITAL SIGNS: Blood pressure 190/92, respiratory rate 18, pulse is 87, temperature is afebrile, and oxygen saturation is 94% on the room air. HEENT: Normocephalic and atraumatic, otherwise, unremarkable. NECK: Supple. Negative for carotid bruit, lymphadenopathy, or thyromegaly. LUNGS: Clear to A and P. CARDIOVASCULAR: Regular rate and rhythm. Normal S1 and S2. There is no S3, S4, or murmur. ABDOMEN: Soft. Bowel sounds are positive. EXTREMITIES: Negative for cyanosis, clubbing, or edema. NEUROLOGICAL EXAM: Mental Status: The patient is alert, but disoriented to date, month, and place. The speech is fluent. There is no language dysfunctions. Memory, judgment, and abstracting thinkings are fair. The patient denies hallucination or delusion. Cranial nerves are grossly intact. No focal motor or sensory deficits. For motor examination, the strength was 4/5 throughout. Deep tendon reflexes were symmetric and hypoactive with absent Achilles responses. Gait is not tested. LABORATORY DATA: Dilantin level is slightly high at 24.2. CBC revealed white cells of 10.6, hemoglobin 11.8, hematocrit 35.5, and platelet count 241,000. Chemistry revealed sodium of 135, potassium is 3.3, chloride 102, CO2 of 26, BUN 11, creatinine 0.7, glucose 117, and calcium is 7.9. CK is still high, elevated at 2454 and troponin level is 0.19 from yesterday. IMPRESSION: 1. Possible breakthrough seizure on the morning of admission. 2. A history of seizure disorder of unknown etiology with a current Dilantin level of 24.2. 3. Mental status changes with a possible history of a dementia. 4. Status post a fall, probably secondary to a seizure with an abnormal CT of the cervical spine consistent with a [id number] spondylosis along with history of osteoarthritis. RECOMMENDATIONS: 1. Continue with current management, careful hydration, potassium supplement. 2. Physical therapy as tolerated. M Ginger LENZ MD DR: FLORY/julia JOB#: [id number] / [id number]
[2019-11-11] MEDS: hydrALAZINE 20 MG/ML VIAL. IV PRN (05:18)
[2019-11-11 05:36] VITALS: BP 164/72
[2019-11-11 05:49] LABS: PHENY 19.5 mcg/mL (10.0-20.0)
[2019-11-11 06:00] LABS: CREATININE 0.6 mg/dL (0.6-1.0); GFR 96.7; MAGNESIUM 1.6 mg/dL (1.8-2.4); POTASSIUM 3.6 mmol/L (3.5-5.1)
[2019-11-11] MEDS: POTASSIUM CHLORIDE 20 MEQ TABLET.ER. PO SCH ×3 (08:28→20:56)
[2019-11-11] MEDS: MAGNESIUM OXIDE 400 MG TABLET PO SCH ×2 (08:28→20:56)
[2019-11-11] MEDS: amLODIPine BESYLATE 10 MG TABLET PO SCH (08:29)
[2019-11-11] MEDS: LISINOPRIL 10 MG TABLET PO SCH ×2 (08:29→20:57)
[2019-11-11] MEDS: levETIRAcetam 500 MG TABLET PO SCH ×2 (08:29→20:56)
--- NOTE | 2019-11-11 12:07 | PN ---
DATE: SUBJECTIVE: The patient has been somewhat confused and disoriented this morning. She has not had any recurrent seizures since admission. She denies any new medical or neurological complaints. OBJECTIVE: GENERAL: Well-developed, well-nourished female, not in acute distress. VITAL SIGNS: Blood pressure 164/72, respiratory rate 24, pulse is 99 and regular, oxygen saturation is 95% on room air. HEENT: Normocephalic, atraumatic, otherwise unremarkable. NECK: Supple. Negative for carotid bruit, lymphadenopathy or thyromegaly. LUNGS: Clear to A and P. CARDIOVASCULAR: Regular rhythm, normal S1, S2. ABDOMEN: Soft. Bowel sounds positive. EXTREMITIES: Negative for cyanosis, clubbing or pitting edema. NEUROLOGICAL EXAM: Mental Status: The patient is awake, but disoriented to time, place and person. Speech is fluent. There are no language dysfunctions. Memory, judgment, and abstract thinking are poor. The patient denies hallucination or delusion. Cranial nerves are intact. No focal motor or sensory deficit. Deep tendon reflexes were symmetric and hypoactive with absent Achilles responses. Gait not tested. LABORATORY DATA: Dilantin level this morning is therapeutic at 19.5. Chemistry revealed sodium of 137, potassium 3.6, chloride 100, CO2 of 27, BUN 9, creatinine 0.6, glucose 93, calcium 8. CK is down to 1412. IMPRESSION: 1. Seizure disorder with possible recent breakthrough seizures with therapeutic Dilantin level. 2. Mental status changes with history of dementia. 3. Gduglaes-ky-mhsmwe cervical spine spondylosis with advanced osteoarthritis. 4. Generalized weakness. RECOMMENDATIONS: 1. Continue with current management including anticonvulsant. 2. Physical therapy evaluation. M Ginger LENZ MD DR: FLORY/julia JOB#: [id number] / [id number]
[2019-11-11 12:55] VITALS: BP 163/63
[2019-11-11 15:18] VITALS: BP 152/68
[2019-11-11] MEDS: PHENYTOIN SODIUM EXTENDED 100 MG CAPSULE PO SCH (16:52)
[2019-11-11 17:46] LABS: PHENY 16.2 mcg/mL (10.0-20.0)
[2019-11-11 18:09] VITALS: BP 148/77
[2019-11-11] MEDS: IV DEXTROSE 5% - 0.9 % NACL 1,000 ML IV SCH (19:28)
[2019-11-11 20:00] VITALS: BP 136/67
[2019-11-11] MEDS ORDERED: MAGNESIUM OXIDE 400 MG TABLET PO SCH (21:00)
[2019-11-11 23:00] VITALS: BP 171/92
--- NOTE | 2019-11-11 23:04 | PN ---
DATE: SUBJECTIVE: The patient is resting, slightly propped up, in no apparent respiratory distress. Her functional status has definitely deteriorated. She is very stiff and unable to even feed herself. The calculated total phenytoin was almost 30, so I spoke with Dr. Caballero and a decision was made to hold it tonight. PHYSICAL EXAMINATION: GENERAL: When I examined her, she looked well and was clearly in no apparent respiratory distress, slightly pale. No jaundice, cyanosis or thyromegaly. No jugular venous distention. No limb edema. VITAL SIGNS: Her heart rate was 91, blood pressure 152/68, temperature was 98.7, respiratory rate was 19 and oxygen saturation was 97%. HEAD, EYES, EARS, NOSE AND THROAT: Normocephalic, atraumatic. NECK: Supple. HEART: Normal first and second heart sounds. No gallop or murmur. CHEST: Clear to auscultation. No crepitation or rhonchi. ABDOMEN: Distended, soft, nontender. NEUROLOGIC: She was demented, but without any obvious lateralizing sign. She has marked stiffness. Her intake over the last 24 hour was 2680, output was 3650. LABORATORY DATA: Her lab work as of yesterday showed a white cell count of 10,000, hemoglobin 11.8, hematocrit 36, MCV 92 and platelet count 241,000. Serum sodium 137, potassium 3.6, chloride 100, bicarbonate 27, anion gap of 10, BUN 9, creatinine 0.6, estimated GFR was 96 mL per minute. Her glucose was 93, calcium was 8, magnesium was 1.6 and CK was 1400. ASSESSMENT: 1. Breakthrough seizures. Continues to be in a postictal state. 2. Rhabdomyolysis is improving. Her CK has come down from 1296-0469. 3. Acute kidney injury, improving. Her creatinine is down to 0.7. 4. Hypokalemia, resolved. Her potassium is 3.6. 5. Hypertension, reasonably controlled. 6. Probably phenytoin toxicity as her total phenytoin level is 30. PLAN: We have decided to hold phenytoin today and we will check her phenytoin level tomorrow. PRIYANKA BROWN MD DR: JOHNNY/julia JOB#: [id number] / [id number]
[2019-11-12] MEDS: hydrALAZINE 20 MG/ML VIAL. IV PRN (00:15)
[2019-11-12 01:15] VITALS: BP 155/69
[2019-11-12 06:03] VITALS: BP 167/75
[2019-11-12 06:27] LABS: HEMATOCRIT 33.7 % (36.0-47.0); HEMOGLOBIN 11.4 g/dL (12.0-15.5); RED BLOOD COUNT 3.73 x10^6/uL (3.50-5.40); RED CELL DISTRIBUTION WIDTH 13.8 % (11.5-14.5); WHITE BLOOD COUNT 11.3 x10^3/uL (4.0-11.0)
[2019-11-12 06:40] LABS: CALCIUM 8.1 mg/dL (8.5-10.1); CREATININE 0.7 mg/dL (0.6-1.0); GFR 80.9; MAGNESIUM 1.7 mg/dL (1.8-2.4); POTASSIUM 4.1 mmol/L (3.5-5.1)
[2019-11-12] MEDS ORDERED: MAGNESIUM SULFATE 2GM 50 ML IV ONE (08:00)
[2019-11-12] MEDS: levETIRAcetam 500 MG TABLET PO SCH ×2 (08:00→20:19)
[2019-11-12] MEDS: MAGNESIUM OXIDE 400 MG TABLET PO SCH ×2 (08:01→20:20)
[2019-11-12] MEDS: POTASSIUM CHLORIDE 20 MEQ TABLET.ER. PO SCH ×3 (08:01→20:20)
[2019-11-12] MEDS: LISINOPRIL 10 MG TABLET PO SCH ×2 (08:01→20:21)
[2019-11-12] MEDS: amLODIPine BESYLATE 10 MG TABLET PO SCH (08:03)
[2019-11-12] MEDS: IV DEXTROSE 5% - 0.9 % NACL 1,000 ML IV SCH (08:27)
[2019-11-12] MEDS: LACTOBACILLUS RHAMNOSUS GG 1 CAPSULE. PO SCH ×2 (08:27→20:19)
[2019-11-12] MEDS ORDERED: POLYETHYLENE GLYCOL 3350 17 GM PACKET. PO ONE (09:00)
[2019-11-12] MEDS: CIPROFLOXACIN 400MG PREMIX 200 ML IV SCH ×2 (09:58→20:19)
[2019-11-12 11:11] VITALS: BP 147/71
--- NOTE | 2019-11-12 12:41 | PN ---
DATE: 11/12/2019 SUBJECTIVE: The patient denies any new medical or neurological complaints. She has not had any recurrent seizure since admission. She eats and drinks well. OBJECTIVE: GENERAL: This is a well-developed, well-nourished female, not in acute distress. VITAL SIGNS: Blood pressure 147/71, respiratory rate 20, pulse is 84, oxygen saturation is 95% on room air, temperature 97.6. HEENT: Normocephalic, atraumatic, otherwise unremarkable. NECK: Supple. Negative for carotid bruit, lymphadenopathy or thyromegaly. LUNGS: Clear to A and P. CARDIOVASCULAR: Regular rhythm, normal S1, S2. ABDOMEN: Soft. Bowel sounds positive. EXTREMITIES: Negative for cyanosis, clubbing or pitting edema. NEUROLOGICAL EXAM: Mental Status: The patient is alert and oriented x 3. The speech is fluent. There is no language dysfunction. Memory, judgment, and abstract thinking are fair. The patient denies hallucination or delusion. Cranial nerves are intact. No focal, motor or sensory deficits. Deep tendon reflexes were symmetric and hypoactive with absent Achilles responses. Gait not tested. LABORATORY DATA: CBC revealed white blood cells of 11.3 thousand, hemoglobin 11.4, hematocrit 33.7, platelet count 239,000. Chemistry revealed sodium of 136, potassium 4.1, chloride 101, CO2 of 27, BUN 10, creatinine 0.7, glucose 110, calcium 8.1. CPK is down to 729, ferritin level today is 16.2. IMPRESSION: 1. Possible breakthrough seizure, but the patient has seizure one day prior to the admission, but the patient has not had any recurrent seizures since admission. 2. History of seizure disorder of unknown etiology. 3. 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 4. Generalized weakness. 5. Early dementia. RECOMMENDATIONS: 1. We will continue with current anticonvulsants. 2. Physical therapy evaluation. 3. We will arrange for EEG on an outpatient basis. M Ginger LENZ MD DR: FLORY/julia JOB#: [id number] / [id number]
--- NOTE | 2019-11-12 13:00 | NUR ---
PT was helped up to the chair by PT/OT today. They reported she was max assist. Dr To did call today and stated she knows the pt very well and she sometimes is postictal post seizure for up to a week. Pt is scared when transferring that she is going to fall and max assist. Pt is pleasantly confused and unable to verbalize understanding of poc. Jimenez
[2019-11-12 13:46] LABS: PHENY 11.9 mcg/mL (10.0-20.0)
--- NOTE | 2019-11-12 14:52 | RAD ---
Examination: CT HEAD WO CONTRAST History: Left-sided weakness Comparison/Correlation: 11/08/2019 CT head and cervical spine without contrast Findings: Axial images of the rotator without contrast. Atrophy is present. No intracranial hemorrhage, midline shift, or mass effect. Bony structures are unremarkable. Globes and optic nerves are unremarkable. Impression: No intracranial hemorrhage. PQRS Compliance Statement: One or more of the following individualized dose reduction techniques were utilized for this examination: 1. Automated exposure control 2. Adjustment of the mA and/or kV according to patient size 3. Use of iterative reconstruction technique Electronically signed by: Cristopher Chin MD (11/12/2019 2:49 PM) [facility]
[2019-11-12 15:00] VITALS: BP 147/66
[2019-11-12 18:00] VITALS: BP 157/65
[2019-11-12] MEDS: PHENYTOIN SODIUM EXTENDED 100 MG CAPSULE PO SCH (20:21)
[2019-11-12 23:00] VITALS: BP 159/76
[2019-11-13] MEDS: IV DEXTROSE 5% - 0.9 % NACL 1,000 ML IV SCH ×2 (01:03→10:45)
[2019-11-13] MEDS: hydrALAZINE 20 MG/ML VIAL. IV PRN (04:06)
[2019-11-13 04:35] VITALS: BP 157/72
[2019-11-13 06:24] LABS: CALCIUM 7.8 mg/dL (8.5-10.1); CREATININE 0.6 mg/dL (0.6-1.0); GFR 96.7; POTASSIUM 4.4 mmol/L (3.5-5.1)
[2019-11-13] MEDS: LACTOBACILLUS RHAMNOSUS GG 1 CAPSULE. PO SCH ×2 (07:57→21:08)
[2019-11-13] MEDS: levETIRAcetam 500 MG TABLET PO SCH ×2 (07:58→21:08)
[2019-11-13] MEDS: amLODIPine BESYLATE 10 MG TABLET PO SCH (07:58)
[2019-11-13] MEDS: POTASSIUM CHLORIDE 20 MEQ TABLET.ER. PO SCH ×3 (07:59→21:09)
[2019-11-13] MEDS: LISINOPRIL 10 MG TABLET PO SCH ×2 (08:00→21:11)
[2019-11-13] MEDS: CIPROFLOXACIN 400MG PREMIX 200 ML IV SCH ×2 (08:01→21:08)
--- NOTE | 2019-11-13 09:02 | PN ---
DATE: 11/12/2019 SUBJECTIVE: The patient is sitting in her recliner comfortably, in no apparent distress. She definitely seemed to be more awake, alert, and although she has not walked, she was able to be transferred from bed to chair. Her Dilantin level continues to be high, both total and free. PHYSICAL EXAMINATION: GENERAL: When I examined her, she was pale, but no jaundice, cyanosis or thyromegaly. No jugular venous distension. No limb edema. VITAL SIGNS: Her heart rate was 80, blood pressure was 147/71, temperature was 97.6, respiratory rate was 16 and oxygen saturation was 95% on room air. HEAD, EYES, EARS, NOSE AND THROAT: Showed normocephalic, atraumatic. NECK: Supple. HEART: Showed normal first and second heart sounds. No gallop, rub or murmur. CHEST: Clear to auscultation. No crepitation or rhonchi. ABDOMEN: Distended, soft, nontender. No guarding or rigidity. No organomegaly. All hernial orifices intact. Bowel sounds normal. NEUROLOGIC: She was awake, alert, continued to have marked head titubation. All her cranial nerves were intact. She moves extremities without difficulty, although she is mostly bedbound, chair bound. Her intake over the last 24 hours was 1860, output was 1775. LABORATORY DATA: Her lab work this morning showed serum sodium of 136, potassium 4.1, chloride 101, bicarbonate 27, anion gap of 8, BUN 10, creatinine 0.7. Estimated GFR was 80 mL per minute. Her glucose was 110, calcium was 8.1, magnesium was 1.7 and total CK was down to 729. ASSESSMENT: 1. Breakthrough seizures, continues to be in a postictal state. 2. Rhabdomyolysis is improving. Her CK is down to ____. 3. Acute kidney injury, improving. Her creatinine is down to 0.7 mg/dL. 4. Hypokalemia, resolved. Her potassium is up to 4.1. 5. Hypertension, reasonably controlled. 6. Phenytoin toxicity. Her total phenytoin level is 25 and free phenytoin is 2.7, and both are in the toxic range. PLAN: My plan is to continue holding phenytoin. We will check her phenytoin again tomorrow. Meanwhile, continue with physical and occupational therapy. PRIYANKA BROWN MD DR: Lzi JOB#: [id number] / [id number]
[2019-11-13 15:33] VITALS: BP 149/86
--- NOTE | 2019-11-13 16:04 | NUR ---
NURSING NOTES: PATIENT IS ALERT WITH CONFUSION. SPEECH IS CLEAR, DIFFICULTY MAKING NEEDS KNOWN D/T CONFUSION. PATIENT IS ON ROOM AIR, NO S/SX OF SOA OR COUGH NOTED. CONTINENT OF BOWEL. LAROSE CATHETER IN PLACE DRAINING DARK YELLOW URINE. PATIENT ABLE TO TRANSFER WITH X2 ASSISTANCE THIS SHIFT. RESTING QUIETLY IN BED AT THIS TIME. DR. BROWN HERE TO SEE PATIENT. NOTED TO SEE IMPROVEMENT WITH PATIENT'S ABILITY TO MOVE. MAKES NO CHANGES TO CURRENT PLAN OF CARE.
[2019-11-13] MEDS: PHENYTOIN SODIUM EXTENDED 100 MG CAPSULE PO SCH (21:08)
[2019-11-13 21:12] VITALS: BP 166/71
[2019-11-13 22:30] VITALS: BP 180/64
--- NOTE | 2019-11-13 23:44 | PN ---
DATE: 11/13/2019 SUBJECTIVE: The patient denies any new medical or neurological complaints. She has not had any recurrent seizures since admission. She has pain on single anticonvulsant Keppra 1000 b.i.d. Her Dilantin level from yesterday was 11.9. OBJECTIVE: GENERAL: Well-developed, well-nourished female, not in acute distress. VITAL SIGNS: Blood pressure 171/81, respiratory rate 13, pulse is 92 regular, oxygen saturation is 93% on room air. HEENT: Normocephalic, atraumatic, otherwise unremarkable. NECK: Supple. Negative for carotid bruit, lymphadenopathy or thyromegaly. LUNGS: Clear to A and P. CARDIOVASCULAR: Regular rate and rhythm, normal S1, S2. ABDOMEN: Soft. Bowel sounds positive. EXTREMITIES: Negative for cyanosis, clubbing or edema. SKIN: The patient has bruises over the left upper back, probably secondary to recent falls. NEUROLOGICAL: Mental status: The patient is alert and oriented x 3. Speech is fluent. There is no language dysfunction. Memory, judgment, and abstract thinking are fair. The patient denies hallucination or delusion. Cranial nerves are grossly intact. No focal motor or sensory deficit. The strength was 4/5 throughout. Sensory examination revealed normal pinprick and light touch senses throughout. Deep tendon reflexes were symmetric and hypoactive with absent Achilles responses. Gait not tested. LABORAOTORY DATA: Chemistry revealed sodium was 135, potassium 4.4, chloride 102, CO2 of 24, BUN 13, creatinine 0.6, glucose 99. Dilantin level 11.9 from yesterday. The patient has been off Dilantin in the last 3 days and she has not had any recurrent seizure. IMPRESSION: 1. Possible breakthrough seizure, status post fall. 2. Longstanding history of seizure disorder of unknown etiology. 3. Dehydration and rhabdomyolysis was improved renal function with elevated creatine kinase which has improved from day of admission. 4. Generalized weakness and possible early dementia. RECOMMENDATIONS: 1. Continue with current management initiated by Dr. Lopez. 2. Continue with Keppra 1000 twice a day. 3. Physical therapy evaluation. 4. We will arrange for an EEG on an outpatient basis. M Ginger LENZ MD DR: FLORY/julia JOB#: [id number] / [id number]
[2019-11-14] MEDS: IV DEXTROSE 5% - 0.9 % NACL 1,000 ML IV SCH ×2 (00:36→13:25)
--- NOTE | 2019-11-14 02:02 | PN ---
DATE: 11/13/2019 SUBJECTIVE: The patient is resting slightly propped up in bed, in no apparent respiratory distress. She definitely seems to be much better improved. The patient did not have any stiffness and she was able to sit in a wheelchair for a while. We did repeat her CT scan of the head, which showed that axial images showed atrophy is present and no intracranial hemorrhage, midline shift, or mass effect. Bony structures are unremarkable. Globes and optic nerves unremarkable. Her phenytoin level was down to 11.9. Her chemistry showed serum sodium 135, potassium 4.4, chloride 102, bicarbonate 24, anion gap of 9, BUN 13, creatinine 0.6. ASSESSMENT: 1. In summary, this is a 78-year-old female patient who presented with breakthrough seizures. She seems to be improving. She is a little bit more awake, alert, although she continued to hallucinate. 2. Rhabdomyolysis, improving. Her CK is down. 3. Acute kidney injury, improved with creatinine down to 0.7. 4. Hypokalemia, resolved. Potassium is up to 4.1. 5. Hypertension, reasonably controlled. 6. Phenytoin toxicity. Her total phenytoin level is within therapeutic range. PLAN: Probably to discontinue phenytoin altogether and continue on Keppra only. We will continue with physical and occupational therapy. PRIYANKA BROWN MD DR: JOHNNY/julia JOB#: [id number] / [id number]
[2019-11-14] MEDS: hydrALAZINE 20 MG/ML VIAL. IV PRN (03:09)
[2019-11-14 05:01] VITALS: BP 152/71
[2019-11-14 07:15] LABS: BASO % 0 % (0-3); EOS % 0 % (0-3); HEMATOCRIT 31.2 % (36.0-47.0); HEMOGLOBIN 10.6 g/dL (12.0-15.5); LYMPH # 0.3 x10^3/uL (1.0-4.8); LYMPH % 2 % (24-48); MEAN CORPUSCULAR HEMOGLOBIN 31 pg (25-35); MEAN CORPUSCULAR HGB CONC 34 g/dL (31-37); MEAN CORPUSCULAR VOLUME 91 fL (79-100); MONO # 1.4 x10^3/uL (0.0-1.1); MONO % 10 % (0-9); NEUT # 12.4 x10^3uL (1.8-7.7); NEUT % 88 % (31-73); PLATELET COUNT 298 x10^3/uL (140-400); RED BLOOD COUNT 3.43 x10^6/uL (3.50-5.40); RED CELL DISTRIBUTION WIDTH 13.8 % (11.5-14.5); WHITE BLOOD COUNT 14.2 x10^3/uL (4.0-11.0)
[2019-11-14 07:40] LABS: CALCIUM 8.2 mg/dL (8.5-10.1); CREATININE 0.8 mg/dL (0.6-1.0); GFR 69.4; POTASSIUM 4.9 mmol/L (3.5-5.1)
[2019-11-14] MEDS: POTASSIUM CHLORIDE 20 MEQ TABLET.ER. PO SCH ×3 (08:31→20:54)
[2019-11-14] MEDS: LACTOBACILLUS RHAMNOSUS GG 1 CAPSULE. PO SCH ×2 (08:31→20:54)
[2019-11-14] MEDS: LISINOPRIL 10 MG TABLET PO SCH ×2 (08:32→20:58)
[2019-11-14] MEDS: levETIRAcetam 500 MG TABLET PO SCH ×2 (08:32→20:54)
[2019-11-14] MEDS: amLODIPine BESYLATE 10 MG TABLET PO SCH (08:32)
[2019-11-14] MEDS: CIPROFLOXACIN 400MG PREMIX 200 ML IV SCH ×2 (08:39→20:54)
[2019-11-14 10:43] VITALS: BP 109/58
[2019-11-14 15:01] VITALS: BP 133/81
[2019-11-14 21:04] VITALS: BP 157/75
--- NOTE | 2019-11-14 21:40 | PN ---
DATE: SUBJECTIVE: The patient denies any new medical or neurological complaints; however, she has been somewhat confused and hallucinating. She received a dose of phenytoin 300 mg last night. OBJECTIVE: GENERAL: Well-developed, well-nourished female, not in acute distress. VITAL SIGNS: Blood pressure 109/58, respiratory rate 22, pulse is 95 regular, temperature 98.1, oxygen saturation is 96% on 1 liter by nasal cannula. HEENT: Normocephalic, atraumatic, otherwise unremarkable. NECK: Supple. Negative for carotid bruit, lymphadenopathy or thyromegaly. LUNGS: With diminished breath sounds. CARDIOVASCULAR: Regular rate and rhythm, normal S1, S2. ABDOMEN: Soft. Bowel sounds positive. EXTREMITIES: Negative for cyanosis, clubbing or edema. NEUROLOGICAL EXAMINATION: Mental status: The patient is awake, but disoriented to time. She knows she is in the hospital and lives in [place]. His speech is fluent, but she is hallucinating and she refused to cooperate with the examination. Cranial nerves are intact. Motor examination: No focal muscle bulk wasting. The tone is normal. The strength is 4/5. Sensory examination revealed normal pinprick, light touch senses. Deep tendon reflexes were symmetric and hyperactive with absent Achilles responses. Gait not tested. LABORATORY DATA: CBC revealed white blood cells of 14,200, hemoglobin 10.6, hematocrit 31.2, platelet count 298,000. Chemistry revealed sodium of 130, potassium 4.9, chloride 98, CO2 of 26, BUN 12, creatinine 0.8, glucose is 117, calcium 8.2. IMPRESSION: 1. Fluctuation of her mental status and possible breakthrough seizure on the day of admission. 2. Longstanding history of focal seizure disorder, probably secondary to a longstanding history of seizure disorder of unknown etiology. 3. Dehydration and rhabdomyolysis -- improved. 4. Generalized weakness. 5. Hyponatremia. RECOMMENDATIONS: 1. We will hold on phenytoin and continue with Keppra 1000 twice a day. 2. Continue with current management initiated by Dr. Lopez 3. Physical therapy as tolerated. 4. We will arrange for EEG on an outpatient basis. M Ginger LENZ MD DR: FLORY/julia JOB#: [id number] / [id number]
--- NOTE | 2019-11-14 21:53 | PN ---
DATE: 11/14/2019 SUBJECTIVE: The patient is resting slightly propped up in bed, in no apparent distress. She continued to be restless, agitated, continued to be confused, hallucinating. She continues to pocket her food, although she drinks well. PHYSICAL EXAMINATION: GENERAL: When I examined her, she looked somewhat pale. No jaundice, cyanosis, or thyromegaly. No jugular venous distension. No lower limb edema. VITAL SIGNS: Her heart rate was 95, blood pressure was 109/58, temperature 98.2, respiratory rate 22, and oxygen saturation was 96%. HEAD, EYES, EARS, NOSE AND THROAT: Normocephalic, atraumatic. NECK: Supple. HEART: Normal first and second heart sounds. No gallop or murmur. CHEST: Clear to auscultation. No crepitation or rhonchi. ABDOMEN: Distended, soft, nontender. No guarding or rigidity. No organomegaly. All hernial orifice intact. Bowel sounds normal. NEUROLOGIC: She was confused, agitated, restless, hallucinating; however, all her cranial nerves are intact. She moves extremities without difficulty, although she is mostly bed bound. Her intake over the last 24 hours was 1450, output 2875. LABORATORY DATA: As of this morning, her white cell count was 14,000, hemoglobin 10, hematocrit 31, MCV 91, and platelet count of 298,000. Her chemistry showed a serum sodium 130, potassium 4.9, chloride 98, bicarbonate 26, anion gap of 6, BUN 12, creatinine 0.8, estimated GFR was 69 mL per minute. Her glucose 117 and calcium was 8.2. Her CK is down to 490. ASSESSMENT: 1. This is a 78-year-old female patient who presented with breakthrough seizures. She has had no seizures reported since admission. She is definitely more awake, alert, but continued to hallucinate. 2. Rhabdomyolysis, improving. Her CK is down to 490. 3. Acute kidney injury, improving. Her creatinine is down to 0.7. 4. Hypokalemia, resolved. Most recent potassium is 4.1. 5. Hypertension, reasonably controlled. 6. Phenytoin toxicity. Her total phenytoin level is within therapeutic range. PLAN: To discontinue phenytoin. I will discuss this option with Dr. Caballero and see if his Keppra alone should be ____. Dictation Ends Here. PRIYANKA BROWN MD DR: JOHNNY/julia JOB#: [id number] / [id number]
[2019-11-14 22:56] VITALS: BP 123/65
[2019-11-15 06:05] VITALS: BP 131/67
[2019-11-15] MEDS: IV DEXTROSE 5% - 0.9 % NACL 1,000 ML IV SCH ×2 (06:17→16:05)
[2019-11-15 07:34] LABS: PHENY 1.9 mcg/mL (10.0-20.0)
[2019-11-15] MEDS: levETIRAcetam 500 MG TABLET PO SCH ×2 (08:08→21:41)
[2019-11-15] MEDS: LACTOBACILLUS RHAMNOSUS GG 1 CAPSULE. PO SCH ×2 (08:09→21:42)
[2019-11-15] MEDS: amLODIPine BESYLATE 10 MG TABLET PO SCH (08:09)
[2019-11-15] MEDS: LISINOPRIL 10 MG TABLET PO SCH ×2 (08:09→21:42)
[2019-11-15] MEDS: POTASSIUM CHLORIDE 20 MEQ TABLET.ER. PO SCH ×3 (08:10→21:42)
[2019-11-15] MEDS: CIPROFLOXACIN 400MG PREMIX 200 ML IV SCH ×2 (08:10→21:41)
[2019-11-15 10:59] VITALS: BP 129/65
--- NOTE | 2019-11-15 14:13 | PN ---
DATE: SUBJECTIVE: The patient denies any recurrent seizure or any new medical or neurological complaints. She eats and drinks well. Because of some hallucinations yesterday, phenytoin was discontinued and she kept on Keppra 1000 twice daily. OBJECTIVE: GENERAL: Well-developed, well-nourished female, not in acute distress. VITAL SIGNS: Blood pressure 129/65, respiratory rate 20, pulse is 78, oxygen saturation 94% and temperature 97.6. HEENT: Normocephalic, atraumatic, otherwise unremarkable. NECK: Supple. Negative for carotid bruit, lymphadenopathy or thyromegaly. LUNGS: Clear to A and P. CARDIOVASCULAR: Regular rate and rhythm, normal S1, S2. There is no S3, S4 or murmur. ABDOMEN: Soft. Bowel sounds positive. EXTREMITIES: Negative for cyanosis, clubbing or edema. NEUROLOGIC: Mental Status: The patient is alert and oriented x 3. The speech is fluent. There is no language dysfunction. Memory, judgment, and abstract thinking are fair. The patient denies hallucination or delusion. Cranial nerves are intact. No focal motor or sensory deficit. Strength was 4/5 throughout. Sensory examination revealed normal pinprick, light touch, vibratory and position senses. Deep tendon reflexes were asymmetric and hypoactive with absent Achilles responses. Gait not tested. IMPRESSION: 1. Longstanding history of seizure disorder. The patient has not had any recurrent seizure since the admission; however, the patient has been hallucinating intermittently with mental status changes; therefore, in the beginning, her Dilantin level was toxic. We have tried to discontinue phenytoin and kept the patient on Keppra. 2. Multiple medical problems include generalized weakness. RECOMMENDATIONS: We will continue with Keppra at 1000 mg twice daily. Physical therapy as tolerated and we will arrange for an EEG to be done on an outpatient basis. M Ginger LENZ MD DR: FLORY/julia JOB#: [id number] / [id number]
[2019-11-15 15:02] VITALS: BP 157/69
[2019-11-15 19:37] VITALS: BP 121/55
[2019-11-15 22:17] VITALS: BP 134/68
--- NOTE | 2019-11-15 23:39 | PN ---
DATE: 11/15/2019 SUBJECTIVE: The patient is resting, propped up head in bed, in no apparent distress. She required 2-person assist to get her from the bed to the chair and used Mercedes lift to get her back to the chair; however, she seemed to be more awake, alert. She managed to feed herself today using her left hand. She drank Ensure. She is not eating well yet. When I examined her, she looked pale, no jaundice, cyanosis or thyromegaly. No jugular venous distension. No limb edema. VITAL SIGNS: Seem to be stable. The rest of clinical exam is stable. LABORATORY DATA: Showed a hemoglobin 10, hematocrit 31 with a white cell count of 14,000 and platelet 298,000. Her chemistry showed a BUN of 12, creatinine 0.8. Her phenytoin trough level was only 1.9. She has had her urine culture which grew gram-negative rods identified as Pseudomonas aeruginosa, sensitive to ciprofloxacin. PLAN: My plan is to continue with IV ciprofloxacin, continue with IV fluid and continue with physical and occupational therapy. Would continue with Keppra for seizure disorder. We will have to talk with the family and discuss her goals of long-term care. PRIYANKA BROWN MD DR: JOHNNY/julia JOB#: [id number] / [id number]
[2019-11-16 05:17] VITALS: BP 151/71
[2019-11-16] MEDS: IV DEXTROSE 5% - 0.9 % NACL 1,000 ML IV SCH ×2 (05:25→18:45)
[2019-11-16 06:34] LABS: HEMOGLOBIN 9.4 g/dL (12.0-15.5); WHITE BLOOD COUNT 5.7 x10^3/uL (4.0-11.0)
[2019-11-16 06:52] LABS: ALBUMIN 1.8 g/dL (3.4-5.0); ALBUMIN/GLOBULIN RATIO 0.5 (1.0-1.7); CREATININE 0.6 mg/dL (0.6-1.0); GFR 96.7; POTASSIUM 4.5 mmol/L (3.5-5.1); TOTAL BILIRUBIN 0.2 mg/dL (0.2-1.0); TOTAL PROTEIN 5.3 g/dL (6.4-8.2)
[2019-11-16] MEDS: LACTOBACILLUS RHAMNOSUS GG 1 CAPSULE. PO SCH ×2 (08:24→21:25)
[2019-11-16] MEDS: LISINOPRIL 10 MG TABLET PO SCH ×2 (08:24→21:24)
[2019-11-16] MEDS: levETIRAcetam 500 MG TABLET PO SCH ×2 (08:24→21:24)
[2019-11-16] MEDS: amLODIPine BESYLATE 10 MG TABLET PO SCH (08:24)
[2019-11-16] MEDS: POTASSIUM CHLORIDE 20 MEQ TABLET.ER. PO SCH ×3 (08:25→21:25)
[2019-11-16] MEDS: CIPROFLOXACIN 400MG PREMIX 200 ML IV SCH ×2 (08:26→21:24)
--- NOTE | 2019-11-16 10:05 | NUR ---
Bedside Swallow Study ordered this AM. Thomas to come from [facility]
[2019-11-16 10:48] VITALS: BP 144/55
--- NOTE | 2019-11-16 10:50 | NUR ---
Bedside Swallow Evaluation completed: Please refer to full report in intervention section for additional information. Impressions: Functional oropharyngeal swallow w/ no s/s aspiration observed during evaluation. Positioning may be a contributing factor to swallow safety per staff report of pt decreased willingness to always sit totally upright or having neck extension in bed. Pt currently wishing softer foods to eat therefore will modify diet to dysphagia II w/ thin liquids. Pt appears at low risk of aspiration for all diet consistencies when sitting upright. Recommendations: Dysphagia II diet w/ thin liquids. General swallow precautions including sitting upright at 90* for all eating/drinking. Assist w/ feeding but encourage self feeding when possible. No additional ST f/u indicated at this time. d/w Christina
[2019-11-16 14:49] VITALS: BP 146/67
--- NOTE | 2019-11-16 15:24 | NUR ---
Pt complains of bilateral hand pain. Ordered 2V X-ray per 's orders.
--- NOTE | 2019-11-16 17:06 | PN ---
DATE: 11/16/2019 SUBJECTIVE: The patient is sitting in her chair, eating her lunch. Her appetite is extremely poor. She has only eaten about 10% of her lunch. She continues to require 2-person assist to transfer her from bed to chair and Mercedes lift transfers from chair to the bed. She has marked ____. She has marked swelling of her arms and hands, likely due to third spacing. PHYSICAL EXAMINATION: GENERAL: When I examined her, she was pale, cachectic. No jaundice, cyanosis, or thyromegaly. No jugular venous distension. No lower limb edema. VITAL SIGNS: Her heart rate was 82, blood pressure was 144/55, temperature 97.4, respiratory rate 20 and oxygen saturation was 96% on 2 liters of oxygen. HEAD, EYES, EARS, NOSE AND THROAT: Showed normocephalic, atraumatic. NECK: Supple. HEART: Showed normal first and second heart sounds. No gallop or murmur. CHEST: Clear to auscultation. No crepitation or rhonchi. ABDOMEN: Distended, soft, nontender. NEUROLOGIC: She is demented, but without any obvious lateralizing sign. She has extreme debility and deconditioning. She requires 2-person assist to transfer from bed to chair and Mercedes lift. Her intake over the last 24 hours was 2900, output was 1550. LABORATORY DATA: As of this morning, her serum sodium was 133, potassium 4.5, chloride 100, bicarbonate 29, anion gap of 4, BUN 11, creatinine 0.6, estimated GFR was 96 mL per minute. Her glucose 100, calcium was 8. Total bilirubin and alkaline phosphatase is normal. AST slightly elevated. CK was coming down to 490 from almost 5800. Her total protein 5.3, albumin 1.8. White cell count was 5700, hemoglobin 9, hematocrit 27, MCV 90 and platelet count 325,000. ASSESSMENT: 1. Breakthrough seizures; however, she has had no seizures reported since admission. The patient continues to be extremely weak, confused, requiring 2-person assist to transfer from bed to chair and Mercedes lift to transfer her from chair to bed. 2. Rhabdomyolysis is improving. Her CK was down to 49. 3. Acute kidney injury, resolved. Her serum creatinine is down to 0.6 mg/dL. 4. Hypokalemia, resolved. Her most recent serum potassium is 4.1. 5. Hypertension, reasonably controlled. 6. Phenytoin toxicity. Her phenytoin was discontinued completely. 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 PRIYANKA BROWN MD DR: JOHNNY/julia JOB#: [id number] / [id number]
--- NOTE | 2019-11-16 17:29 | RAD ---
Examination: HAND BILAT 2V History: Pain Comparison/Correlation: None Findings: 2 views of the right hand and 2 views of the left hand were provided. PA and oblique views of each hand were provided. A ring is present about the fourth digit proximal phalanx obscuring evaluation at this level. Mild interstitial subluxation of the second and third proximal phalanges in relation to the metacarpal heads noted. Narrowing of multiple metacarpophalangeal joints bilaterally. There is remodeling noted involving the right first carpometacarpal joint. Narrowing of the left first carpometacarpal joint also is present. No significant interphalangeal joint degenerative change. No displaced fracture or bone destruction. Soft tissues are unremarkable. Impression: Osteopenia. Degenerative changes consistent with age. Electronically signed by: Cristopher Chin MD (11/16/2019 5:26 PM) [facility]
[2019-11-16 19:30] VITALS: BP 132/72
[2019-11-16 22:47] VITALS: BP 177/83
[2019-11-17 05:28] VITALS: BP 179/80
--- NOTE | 2019-11-17 06:27 | NUR ---
pt asked if the man sitting beside her was ok. i assured her there was no man in the chair. will continue to monitor.
[2019-11-17] MEDS: amLODIPine BESYLATE 10 MG TABLET PO SCH (08:58)
[2019-11-17] MEDS: LISINOPRIL 10 MG TABLET PO SCH ×2 (08:58→20:28)
[2019-11-17] MEDS: LACTOBACILLUS RHAMNOSUS GG 1 CAPSULE. PO SCH ×2 (08:58→20:28)
[2019-11-17] MEDS: levETIRAcetam 500 MG TABLET PO SCH ×2 (08:58→20:29)
[2019-11-17] MEDS: POTASSIUM CHLORIDE 20 MEQ TABLET.ER. PO SCH ×3 (08:58→20:29)
[2019-11-17] MEDS: IV DEXTROSE 5% - 0.9 % NACL 1,000 ML IV SCH (08:59)
[2019-11-17] MEDS: CIPROFLOXACIN 400MG PREMIX 200 ML IV SCH ×2 (09:10→20:38)
[2019-11-17 11:06] VITALS: BP 100/69
[2019-11-17] MEDS: hydrALAZINE 20 MG/ML VIAL. IV PRN (14:27)
[2019-11-17 14:44] VITALS: BP 178/74
[2019-11-17 18:21] VITALS: BP 93/55
[2019-11-17 19:18] VITALS: BP 102/56
--- NOTE | 2019-11-17 21:27 | PDOC ---
Exam Note: Thad Note: Please also refer to the separate dictated note~for this date of service dictated separately.~Patient seen individually. Discussed the patient with Nursing staff reviewed the chart.~Reviewed interim history and current functioning. Reviewed vital signs,~Labs/ Radiology~and current medications noted below. Continue current treatment with the changes noted in the dictated addendum note Assessment: Vital Signs/I&O: Vital Signs Date Time Temp Pulse Resp B/P (MAP) Pulse Ox O2 Delivery O2 Flow Rate FiO2 11/17/19 20:28 94 102/56 11/17/19 19:18 97.2 20 97 Nasal Cannula 1.0 I & O 11/16/19 11/16/19 11/17/19 15:00 23:00 07:00 Intake Total 620 ml 1401 ml 160 ml Output Total 1000 ml 1800 ml Balance -380 ml 1401 ml -1640 ml Current Medications: I have reviewed the current psychotropics carefully including drug interactions. Risk benefit ratio favors no change other than as noted in my dictated progress note. Diagnosis: Problems: (1) Anxiety disorder (2) Rhabdomyolysis (3) Psychosis, atypical (4) Seizure PADMINI KIRBY MD Nov 17, 2019 21:27
[2019-11-17] MEDS ORDERED: MIRTAZAPINE 7.5 MG TABLET. PO SCH (22:00)
[2019-11-17 22:35] VITALS: BP 184/76
--- NOTE | 2019-11-17 23:51 | PN ---
DATE: 11/17/2019 SUBJECTIVE: The patient is having visual hallucinations. She stated she sees a man and woman on the ceiling. She denies any other medical problems. She has not had any seizures since admission. OBJECTIVE: GENERAL: Well-developed female, not in acute distress. VITAL SIGNS: Blood pressure 132/72, respiratory rate 20, pulse is 91 and regular. HEENT: Normocephalic, atraumatic, otherwise unremarkable. NECK: Supple. Negative for carotid bruit, lymphadenopathy or thyromegaly. LUNGS: Clear to A and P. CARDIOVASCULAR: Regular rate and rhythm, normal S1, S2. ABDOMEN: Soft. Bowel sounds positive. EXTREMITIES: Negative for cyanosis, clubbing or edema. NEUROLOGICAL EXAM: Mental Status: The patient is alert to herself and hospital. Speech is somewhat slow. There is no language dysfunction. Memory, judgment, and abstracting thinking are poor. The patient having visual hallucination. Cranial nerves are grossly intact. Motor examination: No focal muscle bulk was seen. The strength was 4/5 throughout. Sensory examination revealed normal pinprick and light touch senses throughout. Deep tendon reflexes were symmetric and hypoactive with absent Achilles responses. Gait not tested at this time. IMPRESSION: 1. History of seizure disorder, no recurrence since admission. 2. Dehydration rhabdomyolysis - resolved. 3. Deconditioning and difficulty to stand and walk on her own. 4. Multiple medical problems include generalized weakness. RECOMMENDATIONS: 1. Continue with current management. 2. The patient needs prison placement for further rehabilitation. M Ginger LENZ MD DR: FLORY/julia JOB#: [id number] / [id number]
--- NOTE | 2019-11-17 23:52 | PN ---
DATE: 11/16/2019 SUBJECTIVE: The patient denies any new medical or neurological complaints; however, she has been weak and confused and not able to walk without assistance. She has not had any seizures since admission. OBJECTIVE: GENERAL: Well-developed, well-nourished female, not in acute distress. VITAL SIGNS: Blood pressure 132/72, respiratory rate 20, pulse is 91 and regular, temperature 97.8, oxygen saturation is 98% on 1 liter by nasal cannula. HEENT: Normocephalic, atraumatic, otherwise unremarkable. NECK: Supple. Negative for carotid bruit, lymphadenopathy or thyromegaly. LUNGS: Clear to A and P. CARDIOVASCULAR: Regular rate and rhythm. Normal S1, S2. ABDOMEN: Soft. Bowel sounds positive. EXTREMITIES: Negative for cyanosis, clubbing or edema. NEUROLOGICAL: The patient is awake and oriented to herself and place. Speech is somewhat fluent. There is no language dysfunction. Memory, judgment, and abstract thinking are poor, but the patient denies hallucination or delusion. Cranial nerves are intact. Motor Examination revealed no focal muscle bulk was seen. The strength was 4/5 throughout. Sensory examination revealed diminished pinprick and light touch senses in patchy distributions in both lower extremities. Deep tendon reflexes were symmetric and hypoactive with absent Achilles responses. Gait not tested. LABORATORY DATA: CBC revealed white blood cells of 5700, hemoglobin 9.4, hematocrit 37, platelet count 325,000. Chemistry revealed sodium of 133, potassium 4.5, chloride 100, CO2 of 29, BUN 11, creatinine 0.6, glucose 100, calcium 8. Creatine kinase is down to 490. DIAGNOSTIC DATA: Right hand x-ray revealed osteopenia and degenerative change consistent with her age, otherwise no acute fracture. IMPRESSION: 1. History of seizure disorder with no recurrence since admission. 2. Gait disturbance and difficulty to walk -- deconditioning. 3. Multiple medical problems include history of seizure disorder, generalized weakness, generalized arthritis, anemia and slight hyponatremia. RECOMMENDATIONS: Continue with current management. The patient need assisted placement as she cannot take care of herself. M Ginger LENZ MD DR: FLORY/julia JOB#: [id number] / [id number]
--- NOTE | 2019-11-18 01:45 | PN ---
DATE: SUBJECTIVE: The patient is resting slightly propped up in bed, in no apparent distress. She continued to be extremely confused, hallucinating, talking about people that do not exist. She is mostly bedbound and she requires 2-person assist to transfer from bed to chair in Mercedes lift. PHYSICAL EXAMINATION: GENERAL: When I examined her, she looked pale, but no jaundice, cyanosis or thyromegaly. No jugular venous distention. No lower limb edema. VITAL SIGNS: Her heart rate was 94, blood pressure 178/74, temperature 97.9, respiratory rate was 20 and oxygen saturation was 92%. HEAD, EYES, EARS, NOSE AND THROAT: Normocephalic, atraumatic. NECK: Supple. HEART: Showed normal first and second heart sounds. No gallop or murmur. CHEST: Clear to auscultation. No crepitation or rhonchi. ABDOMEN: Distended, soft, nontender. NEUROLOGIC: She is very confused, hallucinating. She is able to move her extremities to much good extent than lower extremities. Her intake is 1500, output was 750. No lab works done this morning. ASSESSMENT AND PLAN: 1. Breakthrough seizures; however, she has no seizures reported since admission. The patient continues to be extremely weak, confused, hallucinating, requiring 2-person assist to transfer from bed to chair and Mercedes lift to transfer from chair to bed. 2. Rhabdomyolysis, resolving. 3. Acute kidney injury, resolved. 4. Hypokalemia, resolved. 5. Hypertension, reasonably controlled. 6. Phenytoin toxicity. Phenytoin was discontinued altogether as the patient continued to be extremely confused and hallucinating. I will ask Dr. Dorantes to see her and we will discuss with family the long-term goal as she probably needs to be in a long-term care facility. PRIYANKA BROWN MD DR: JOHNNY/julia JOB#: [id number] / [id number]
[2019-11-18 04:59] VITALS: BP 190/84
[2019-11-18] MEDS: hydrALAZINE 20 MG/ML VIAL. IV PRN (05:02)
[2019-11-18 08:04] LABS: CALCIUM 8.7 mg/dL (8.5-10.1); CREATININE 0.7 mg/dL (0.6-1.0); GFR 80.9; POTASSIUM 4.3 mmol/L (3.5-5.1)
[2019-11-18] MEDS: LISINOPRIL 10 MG TABLET PO SCH ×2 (08:10→21:36)
[2019-11-18] MEDS: levETIRAcetam 500 MG TABLET PO SCH ×2 (08:10→21:36)
[2019-11-18] MEDS: LACTOBACILLUS RHAMNOSUS GG 1 CAPSULE. PO SCH ×2 (08:11→21:36)
[2019-11-18] MEDS: amLODIPine BESYLATE 10 MG TABLET PO SCH (08:11)
[2019-11-18] MEDS: POTASSIUM CHLORIDE 20 MEQ TABLET.ER. PO SCH ×3 (08:12→21:37)
[2019-11-18] MEDS: CIPROFLOXACIN 400MG PREMIX 200 ML IV SCH ×2 (10:41→21:28)
[2019-11-18] MEDS ORDERED: LORazepam 0.5 MG TABLET PO PRN (10:45)
[2019-11-18 11:01] VITALS: BP 158/78
[2019-11-18 15:06] VITALS: BP 116/53
--- NOTE | 2019-11-18 16:49 | PN ---
DATE: 11/18/2019 SUBJECTIVE: The patient has been extremely restless, agitated ____ very anxious, and was given Ativan this afternoon. When I saw her, she was resting slightly propped up in bed, sleeping comfortably, in no apparent distress. PHYSICAL EXAMINATION: VITAL SIGNS: Her heart rate was 103, blood pressure was 158/78, temperature 98.4, respiratory rate was 20, and oxygen saturation was 96% on room air. HEAD, EYES, EARS, NOSE, AND THROAT: Showed normocephalic and atraumatic. NECK: Supple. HEART: Normal first and second heart sounds. No gallop or murmur. CHEST: Clear to auscultation. No crepitation or rhonchi. ABDOMEN: Distended, soft, and nontender. NEUROLOGIC: She continued to be confused and hallucinating. She is very weak. She requires 2-person assist to get her out of the bed to the chair and Mercedes lift to get her from chair to the bed. Her intake was 2200 and the output was 2800. LABORATORY WOK: Her most recent lab work as of this morning showed a serum sodium of 130, potassium at 4.3, chloride 94, bicarbonate 30, anion gap of 6, BUN 14, and creatinine 0.7. Estimated GFR was 80 mL per minute. Her glucose was 99 and calcium was 8.7. Total protein was 5.3 and albumin was 1.8. Most recent white cell count was 5700, hemoglobin 9.4, hematocrit 27, MCV 90, and platelet count 325,000. ASSESSMENT: 1. Breakthrough seizures; however, she has had no seizures reported since the admission. The patient continues to be extremely weak, confused, hallucinating, and requiring 2-person assist to transfer from bed to chair and Mercedes lift to transfer from chair to bed. 2. Rhabdomyolysis, has resolved. 3. Acute kidney injury, resolved. 4. Hypokalemia, resolved. 5. Hypertension, reasonably controlled. 6. Phenytoin toxicity, for which phenytoin was discontinued and her phenytoin level is undetectable. 7. We did consult Dr. Dorantes to see the patient. PLAN: My plan is to arrange a meeting with the family to decide where to go from here because I do not think the patient will be able to go home or even participate in physical and occupational therapy and she probably needs to be in a long-term care facility. PRIYANKA BROWN MD DR: JOHNNY/julia JOB#: [id number] / [id number]
[2019-11-18] MEDS ORDERED: OLANZapine 2.5 MG TABLET PO PRN (18:00)
[2019-11-18] MEDS ORDERED: MIRTAZAPINE 15 MG TABLET PO SCH (18:00)
[2019-11-18] MEDS ORDERED: traZODone 50 MG TABLET. PO PRN (18:00)
[2019-11-18 19:30] VITALS: BP 100/54
--- NOTE | 2019-11-18 20:50 | PDOC ---
Exam Note: Thad Note: Please also refer to the separate dictated note~for this date of service dictated separately.~Patient seen individually. Discussed the patient with Nursing staff reviewed the chart.~Reviewed interim history and current functioning. Reviewed vital signs,~Labs/ Radiology~and current medications noted below. Continue current treatment with the changes noted in the dictated addendum note Assessment: Vital Signs/I&O: Vital Signs Date Time Temp Pulse Resp B/P (MAP) Pulse Ox O2 Delivery O2 Flow Rate FiO2 11/18/19 19:30 97.9 87 18 100/54 (69) 98 Nasal Cannula 2.0 I & O 11/17/19 11/17/19 11/18/19 15:00 23:00 07:00 Intake Total 200 ml 560 ml 300 ml Output Total 800 ml 1600 ml Balance 200 ml -240 ml -1300 ml Labs: Laboratory Tests Test 11/18/19 06:32 Sodium Level 130 mmol/L (136-145) L Potassium Level 4.3 mmol/L (3.5-5.1) Chloride Level 94 mmol/L (98-107) L Carbon Dioxide Level 30 mmol/L (21-32) Anion Gap 6 (6-14) Blood Urea Nitrogen 14 mg/dL (7-20) Creatinine 0.7 mg/dL (0.6-1.0) Estimated GFR (Cockcroft-Gault) 80.9 Glucose Level 99 mg/dL (70-99) Calcium Level 8.7 mg/dL (8.5-10.1) Current Medications: Meds: Current Medications Medications (Trade) Dose Ordered Sig/Ajay Route PRN Reason Start Time Stop Time Status Last Admin Dose Admin Mirtazapine (Remeron) 7.5 mg QHS PO 11/17/19 22:00 11/18/19 18:07 DC 11/17/19 22:33 Lorazepam (Ativan) 0.5 mg PRN Q6HRS PRN PO ANXIETY / AGITATION 11/18/19 10:45 11/18/19 10:49 I have reviewed the current psychotropics carefully including drug interactions. Risk benefit ratio favors no change other than as noted in my dictated progress note. Diagnosis: Problems: (1) Rhabdomyolysis (2) Anxiety disorder (3) Seizure (4) Psychosis, atypical MIRTA,PADMINI Morales MD Nov 18, 2019 20:50
[2019-11-18] MEDS: MIRTAZAPINE 15 MG TABLET PO SCH (21:40)
[2019-11-18 22:55] VITALS: BP 99/57
--- NOTE | 2019-11-18 23:59 | CONS ---
DATE OF CONSULTATION: 11/17/2019 PSYCHIATRIC CONSULTATION This late entry 11/17/2019 covers elements not covered in my initial note. I met with the patient evening of 11/17/2019 in room 107. IDENTIFYING DATA: The patient is a 78-year-old female seen in room 107, [address] [place] [address], for a psychiatric consult requested by Dr. Lopez on account of delirium, active hallucinations, marked insomnia, which the nursing staff feel has primary contributed to her worsening delirium within the context of her general medical condition/seizures. The patient was seen individually, discussed with nursing staff, reviewed the chart. CHIEF COMPLAINT: "No I don't know where I am. 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 HISTORY OF PRESENT ILLNESS: The patient was admitted through the ER due to weakness. She has a history of seizure disorder, was on Dilantin at home, had a seizure the previous night prior to admission. She was found on the floor by her . In the ER, her white cell count was elevated at 19.7, BUN elevated, was dehydrated. CK was 5800. Troponin 0.3, Dilantin 8.9. UA unremarkable. Chest x-ray noncontributory and she was admitted for medical stabilization. She was admitted on 11/08/2019. For the last few nights, she has not slept and has been increasingly delirious, grabbing out at things, oriented to her name for the most part. PAST PSYCHIATRIC HISTORY: As noted above. PAST MEDICAL HISTORY: In addition to above, positive for hypertension, seizure disorder, osteoarthritis, macular degeneration. PAST SURGICAL HISTORY: Tonsillectomy. SOCIAL HISTORY: The patient lives with her . ALLERGIES: Negative. CURRENT PSYCHOTROPICS: Noncontributory. FAMILY HISTORY: Noncontributory. MENTAL STATUS EXAMINATION: The patient was seen individually evening of 11/17/2019. She is oriented to herself, grabbing out at things, somewhat delirious. Insight, judgment, recent and remote memory, attention, concentration, fund of knowledge poor, consistent with her diagnoses. IMPRESSION: Delirium due to general medical condition, rule out major neurocognitive disorder with delirium, though she had been living at home with her and I am unaware about her orientation status prior to admission. Rest diagnoses as above. RECOMMENDATION: From a psychiatric standpoint, she does need something to help her sleep. She is unable to take anything orally and we will start her on mirtazapine 7.5 mg sublingual at bedtime for now. She may also use Zyprexa Zydis sublingual 2.5 mg q. 2 hours p.r.n. psychosis, agitation. We will see how her cognition and confusion resolves as she is medically stabilized and then decide on further interventions. We would also recommend a CT head be done if one has not been done in the recent past. Dr. Lopez, thank you for the opportunity to participate in your patient's care. We will follow with you. PADMINI KIBRY MD DR: SAMUEL/nts JOB#: [id number] / [id number]
[2019-11-19 05:18] VITALS: BP 157/69
[2019-11-19] MEDS: LACTOBACILLUS RHAMNOSUS GG 1 CAPSULE. PO SCH ×2 (07:48→20:31)
[2019-11-19] MEDS: levETIRAcetam 500 MG TABLET PO SCH ×2 (07:49→20:31)
[2019-11-19] MEDS: amLODIPine BESYLATE 10 MG TABLET PO SCH (07:49)
[2019-11-19] MEDS: LISINOPRIL 10 MG TABLET PO SCH ×2 (07:49→20:31)
[2019-11-19] MEDS: POTASSIUM CHLORIDE 20 MEQ TABLET.ER. PO SCH ×3 (07:49→20:31)
[2019-11-19] MEDS: CIPROFLOXACIN 400MG PREMIX 200 ML IV SCH ×2 (07:54→20:30)
[2019-11-19 11:34] VITALS: BP 106/58
[2019-11-19 15:24] VITALS: BP 95/46
[2019-11-19 19:41] VITALS: BP 111/62
[2019-11-19] MEDS: MIRTAZAPINE 15 MG TABLET PO SCH (20:31)
--- NOTE | 2019-11-19 20:51 | PDOC ---
Exam Note: Thad Note: Please also refer to the separate dictated note~for this date of service dictated separately.~Patient seen individually. Discussed the patient with Nursing staff reviewed the chart.~Reviewed interim history and current functioning. Reviewed vital signs,~Labs/ Radiology~and current medications noted below. Continue current treatment with the changes noted in the dictated addendum note Assessment: Vital Signs/I&O: Vital Signs Date Time Temp Pulse Resp B/P (MAP) Pulse Ox O2 Delivery O2 Flow Rate FiO2 11/19/19 20:31 88 111/62 11/19/19 19:41 97.7 20 98 Nasal Cannula 2.0 I & O 11/18/19 11/18/19 11/19/19 15:00 23:00 07:00 Intake Total 540 ml 440 ml Output Total 1350 ml 1200 ml Balance 540 ml -910 ml -1200 ml Current Medications: I have reviewed the current psychotropics carefully including drug interactions. Risk benefit ratio favors no change other than as noted in my dictated progress note. Diagnosis: Problems: (1) Anxiety disorder (2) Seizure (3) Psychosis, atypical PADMINI KIRBY MD Nov 19, 2019 20:51
--- NOTE | 2019-11-19 22:12 | PN ---
DATE: 11/19/2019 SUBJECTIVE: The patient is sitting propped up in bed, eating her lunch comfortably without any difficulty. She continued to require 2-person assist to get her out of the bed to chair and vice versa out to go to the bathroom, but she seemed to be generally much more awake. PHYSICAL EXAMINATION: GENERAL: When I examined her, she looked well. No pallor, jaundice, cyanosis or thyromegaly. No jugular venous distention. No lower limb edema. VITAL SIGNS: Her heart rate was 78, blood pressure was 106/58, temperature 97.5, respiratory rate was 18 and oxygen saturation was 95% on room air. HEAD, EYES, EARS, NOSE AND THROAT: Normocephalic, atraumatic. NECK: Supple. HEART: Showed normal first and second heart sounds. No gallop, rub or murmur. CHEST: Clear to auscultation. No crepitation or rhonchi. ABDOMEN: Distended, soft, nontender. NEUROLOGIC: She is obviously very confused, although is not as hallucinating as of yesterday. All her cranial nerves intact. She moves upper extremities and actually feeding herself, although she continued to require 2-person assist to get out of the bed to chair and vice versa. Her intake over the last 24 hours was 1060, output was 2400. LABORATORY DATA: Her most recent lab work showed a white cell count 5700, hemoglobin 9.4, hematocrit 27, MCV 90 and platelet count 325,000. Her chemistry showed a serum sodium 130, potassium 4.3, chloride 94, bicarbonate 30, anion gap of 6, BUN 14, creatinine was 0.7, estimated GFR was 81 mL per minute. Her glucose was 99. Calcium was 8.7. ASSESSMENT: 1. Breakthrough seizures; however, she has had no seizures reported since admission. 2. The patient continues to be extremely weak, confused, although not as hallucinating. She is requiring 2-person assist to transfer from bed to chair and however, lift transfer from chair to bed, although surprisingly, she was able to feed herself today. 3. Rhabdomyolysis, resolved. 4. Acute kidney injury, resolved. 5. Hypokalemia, resolved. 6. Hypertension, well controlled. 7. Phenytoin toxicity, for which we discontinued her phenytoin altogether. PLAN: Obviously for her to be admitted to a senior care facility to continue the process of rehabilitation there. PRIYANKA BROWN MD DR: JOHNNY/julia JOB#: [id number] / [id number]
[2019-11-19 23:03] VITALS: BP 148/71
--- NOTE | 2019-11-20 02:13 | PN ---
DATE: 11/18/2019 SUBJECTIVE: The patient has not had any new medical or neurological complaints; however, she has been extremely restless, agitated, and anxious. The patient was given Ativan. She has not had any recurrent seizures since admission. OBJECTIVE: GENERAL: Well-developed, well-nourished female, not in acute distress. VITAL SIGNS: Blood pressure 158/78, respiratory rate 20, pulse is 103, temperature 98.4, and oxygen saturation 96% on 2 liters via nasal cannula. HEENT: Normocephalic, atraumatic, otherwise unremarkable. NECK: Supple. Negative for carotid bruit, lymphadenopathy, or thyromegaly. LUNGS: Clear to A and P. CARDIOVASCULAR: Regular rate and rhythm, normal S1, S2. ABDOMEN: Soft. Bowel sounds positive. EXTREMITIES: Negative for cyanosis, clubbing, or edema. NEUROLOGICAL EXAM: Mental Status: The patient is awake, but restless and somewhat agitated. Speech is somewhat slow. She does not answer questions today. Attention span is very short and she does not follow some commands. Cranial nerves are intact. MOTOR EXAMINATION: No focal muscle bulk was seen. The tone was normal. The strength was 4/5 throughout. Sensory examination revealed normal pinprick and light touch senses. Deep tendon reflexes were symmetric and hypoactive with absent Achilles responses. Gait not tested. LABORATORY DATA: Chemistry revealed sodium 130, potassium 4.3, chloride 194, CO2 of 30, BUN 14, creatinine 0.7, glucose 99, and calcium 8.7. IMPRESSION: 1. History of seizure disorder with possible breakthrough seizure on the day of admission, but no recurrent seizures since admission. 2. Mild hyponatremia. 3. Multiple medical problems include hypertension and seizure disorder. 4. Encephalopathy with dementia and possible depression. RECOMMENDATIONS: We will continue with current medical and psychiatric care along with psychotropic medication for agitation. The patient has been followed by Dr. Dorantes for psychiatric disorders. M Ginger LENZ MD DR: FLORY/julia JOB#: [id number] / [id number]
--- NOTE | 2019-11-20 02:13 | PN ---
DATE: 11/19/2019 SUBJECTIVE: The patient denies any new medical or neurological complaints. She has not had any recurrent seizures since admission; however, she has been having intermittent mental status changes with agitation and confusion. The patient has been weak and difficult to ambulate without assistance with 2%. OBJECTIVE: GENERAL: Well-developed female, not in acute distress. VITAL SIGNS: Blood pressure 157/69, respiratory rate 20, pulse is 72 and regular, temperature 97.8, oxygen saturation is 95% on 2 liters by nasal cannula. HEENT: Normocephalic, atraumatic, otherwise unremarkable. NECK: Supple. Negative for carotid bruit, lymphadenopathy or thyromegaly. LUNGS: Clear to A and P. CARDIOVASCULAR: Regular rhythm, normal S1, S2. ABDOMEN: Soft. Bowel sounds positive. EXTREMITIES: Negative for cyanosis, clubbing or pitting edema. NEUROLOGICAL EXAM: The patient is awake. She follows 1-step commands. She answers few questions. She knows she is in the hospital, but she is disoriented to day, month and year. The speech is fluent. She denies hallucination or delusion. Cranial nerves are grossly intact. Motor examination: No focal muscle bulk was seen. The strength was 4/5 throughout. Sensory examination revealed normal pinprick, light touch senses. Deep tendon reflexes were symmetric and hypoactive with absent Achilles responses. Gait not tested. IMPRESSION: 1. Longstanding history of seizure disorder. 2. Generalized weakness and deconditioning. 3. Multiple medical problems include hypertension, encephalopathy, depression, dementia, with intermittent psychotic features. RECOMMENDATIONS: 1. Continue with current medical and psychiatric care. 2. The patient needs assisted facility for further rehabilitation. M Ginger LENZ MD DR: FLORY/julia JOB#: [id number] / [id number]
[2019-11-20 05:44] VITALS: BP 135/72
[2019-11-20 06:36] LABS: HEMATOCRIT 29.9 % (36.0-47.0); RED BLOOD COUNT 3.24 x10^6/uL (3.50-5.40); RED CELL DISTRIBUTION WIDTH 14.7 % (11.5-14.5); WHITE BLOOD COUNT 7.1 x10^3/uL (4.0-11.0)
[2019-11-20 06:47] LABS: CALCIUM 8.3 mg/dL (8.5-10.1); CREATININE 0.8 mg/dL (0.6-1.0); GFR 69.4; POTASSIUM 4.8 mmol/L (3.5-5.1)
[2019-11-20] MEDS: LACTOBACILLUS RHAMNOSUS GG 1 CAPSULE. PO SCH (08:02)
[2019-11-20] MEDS: levETIRAcetam 500 MG TABLET PO SCH (08:02)
[2019-11-20] MEDS: POTASSIUM CHLORIDE 20 MEQ TABLET.ER. PO SCH (08:02)
[2019-11-20] MEDS: LISINOPRIL 10 MG TABLET PO SCH (08:03)
[2019-11-20] MEDS: amLODIPine BESYLATE 10 MG TABLET PO SCH (08:03)
[2019-11-20] MEDS: CIPROFLOXACIN 400MG PREMIX 200 ML IV SCH (08:04)
[2019-11-20 11:06] VITALS: BP 104/57
--- NOTE | 2019-11-20 11:20 | PN ---
DATE: 11/18/2019 PSYCHIATRIC PROGRESS NOTE This late entry 11/18/2019 covers the elements not covered in my initial note. SUBJECTIVE: I met with the patient in the evening of 11/18/2019. Discussed with nursing staff, reviewed the chart. Overall, per nursing report, the patient is doing a little better. She has been sleeping a little better and seems less confused, still quite forgetful. REVIEW OF SYSTEMS: Ambulation impaired. She is lying in bed as I met with her. No CV, , pulmonary, eye system symptoms on review. Reliability poor. MENTAL STATUS EXAM: Oriented to herself. Insight, judgment, recent, and remote memory, attention, concentration, fund of knowledge poor, consistent with her diagnosis mentioned in my initial note. PLAN: No change from initial note. MAN Jonathan KIRBY MD DR: SAMUEL/julia JOB#: [id number] / [id number]
--- NOTE | 2019-11-20 11:30 | PN ---
DATE: 11/19/2019 SUBJECTIVE: The patient was seen on rounds evening of 11/19/2019. Discussed with nursing staff, reviewed the chart. This note covers elements not covered in my initial note of 11/19/2019. Overall, per nursing report, the patient is sleeping much better, seems more oriented, more cooperative, less delirious. REVIEW OF SYSTEMS: Ambulation impaired, some shortness of breath. No CV, , eye system symptoms on review. MENTAL STATUS EXAM: Oriented to herself. Insight, judgment, recent and remote memory, attention, concentration, fund of knowledge poor, consistent with her diagnosis mentioned in my initial note. PLAN: No change from initial ____. DICTATION ENDS HERE PADMINI KIRBY MD DR: SAMUEL/julia JOB#: [id number] / [id number]
--- NOTE | 2019-11-20 11:30 | NUR ---
NURSING NOTE DISCHARGE PT DISCHARGED TO [facility] VIA WHEELCHAIR ACCOMPANIED BY [facility] PERSONNEL. PT GIVEN WRITTEN AND VERBAL DISCHARGE INSTRUCTIONS. REPORT CALLED TO MIMI AT [facility]. NO COMPLICATIONS. ROHAN REDDY.
== END 2019-11-20 11:32 | DRG 100 ==
LOC: ER 14:05 → ICU 17:00 → 1 SOUTH 11-13 11:40
PROVIDERS: ADMIT Internal Medicine; ATTEND Internal Medicine
DX: G40.109 Localization-related (focal) (partial) symptomatic epilepsy and epileptic syndromes with simple partial seizures, not intractable, without status epilepticus (principal); E43 Unspecified severe protein-calorie malnutrition; N17.9 Acute kidney failure, unspecified; E87.1 Hypo-osmolality and hyponatremia; M62.82 Rhabdomyolysis; G93.40 Encephalopathy, unspecified; F05 Delirium due to known physiological condition; Z68.21 Body mass index [BMI] 21.0-21.9, adult; I10 Essential (primary) hypertension; E78.5 Hyperlipidemia, unspecified; E11.9 Type 2 diabetes mellitus without complications; M19.90 Unspecified osteoarthritis, unspecified site; E86.0 Dehydration; F03.90 Unspecified dementia, unspecified severity, without behavioral disturbance, psychotic disturbance, mood disturbance, and anxiety; E87.6 Hypokalemia; F32.9 Major depressive disorder, single episode, unspecified; F41.9 Anxiety disorder, unspecified; H35.30 Unspecified macular degeneration; M47.812 Spondylosis without myelopathy or radiculopathy, cervical region; Z86.73 Personal history of transient ischemic attack (TIA), and cerebral infarction without residual deficits; Z79.899 Other long term (current) drug therapy; T42.0X5A Adverse effect of hydantoin derivatives, initial encounter; Y92.89 Other specified places as the place of occurrence of the external cause
CPT/HCPCS: 36415; 51702; 70450; 71045; 72125; 73120; 80048; 80053; 80185; 81001; 82550; 82947; 83735; 83880; 84443; 84484; 85007; 85025; 85027; 87086; 87186; 90471; 90715; 93005; 96361; 96365; J0360; J0696; J0744; J2060; J3475; J7042; Q2009; 92610; 97110; 97530; 97535; 99285-25; J7030

== ENCOUNTER 2019-11-26 14:58 | Inpatient (IN) | payer MEDICARE, OTHER ==
[~2019-11-26] VITALS: Ht 172.7 cm; Wt 59.1 kg
[~2019-11-26 14:58] MED LIST changes: +AMLO10TA8 PO; +ATOR10TA60 PO; +LEVE10007 PO; +LISI10TA2 PO; +PHEN100C4 PO
[2019-11-26] MEDS ORDERED: IV NORMAL SALINE 1,000ML 1,000 ML IV ONE (15:15)
--- NOTE | 2019-11-26 15:23 | PHYS DOC ---
Past History Past Medical History: CVA, Diabetes, Hypertension, Seizure, Other Additional Past Medical Histor: HLD Past Surgical History: No Surgical History Alcohol Use: None Drug Use: None Adult General Chief Complaint Chief Complaint: WEAKNESS/GENERALIZED HPI HPI 79-year-old female presents from her snf with generalized weakness and she has been telling the staff "I feel like I'm about to have a seizure". The patient did have a seizure 2 weeks ago and is on antiseizure medication. No reported repeat seizure at the snf. Reported fever. The patient tells me she just does not feel well. She is repeatedly calling out to the nurses despite reassurance. No specific complaints. Review of Systems Review of Systems Constitutional: Fatigue. Denies fever or chills [] Eyes: Denies change in visual acuity, redness, or eye pain [] HENT: Denies nasal congestion or sore throat [] Respiratory: Denies cough or shortness of breath [] Cardiovascular: No additional information not addressed in HPI [] GI: Denies abdominal pain, nausea, vomiting, bloody stools or diarrhea [] : Denies dysuria or hematuria [] Musculoskeletal: Denies back pain or joint pain [] Integument: Denies rash or skin lesions [] Neurologic: Denies headache, focal weakness or sensory changes [] Endocrine: Denies polyuria or polydipsia [] All other systems were reviewed and found to be within normal limits, except as documented in this note. Current Medications Current Medications Current Medications Medications (Trade) Dose Ordered Sig/Ajay Start Time Stop Time Status Last Admin Dose Admin Sodium Chloride 1,000 ml @ 1,000 mls/hr 1X ONCE 11/26/19 15:15 11/26/19 16:14 Allergies Allergies Allergies Coded Allergies Type Severity Reaction Last Updated Verified No Known Drug Allergies 10/21/19 No Physical Exam Physical Exam Constitutional: Well developed, thin, well nourished, no acute distress, non- toxic appearance. [] HENT: Normocephalic, atraumatic, bilateral external ears normal, oropharynx moist, no oral exudates, nose normal. [] Eyes: PERRLA, EOMI, conjunctiva normal, no discharge. [] Neck: Normal range of motion, no tenderness, supple, no stridor. [] Cardiovascular:Heart rate regular rhythm, no murmur [] Lungs & Thorax: Bilateral breath sounds clear to auscultation [] Abdomen: Bowel sounds normal, soft, no tenderness, no masses, no pulsatile masses. [] Skin: Warm, dry, no erythema, no rash. [] Back: No tenderness, no CVA tenderness. [] Extremities: No tenderness, no cyanosis, no clubbing, ROM intact, no edema. [] Neurologic: Alert and oriented X 3, normal motor function, normal sensory function, no focal deficits noted. [] Psychologic: Affect normal, judgement normal, mood anxious. [] EKG EKG [] Radiology/Procedures Radiology/Procedures [] Course & Med Decision Making Course & Med Decision Making Pertinent Labs and Imaging studies reviewed. (See chart for details) The patient's heart rate is 96. She appears to have a urinary tract infection. Blood pressure is normal. Her white count is 12.7. The patient meets criteria for sepsis. We will give the patient 30 mL/kg of fluids. We have already given a liter normal saline. I'll give the patient Rocephin and admit her to the hospital. I spoke with Dr. Lopez and he has accepted the patient for admission. The patient began have an intermittent cough and her oxygen saturation has been 91-93 on room air. I ordered a chest x-ray. 39 minutes of critical care time was spent on this patient exclusive of other billable procedures. [] Dragon Disclaimer Dragon Disclaimer This electronic medical record was generated, in whole or in part, using a voice recognition dictation system. Departure Departure: Impression: Primary Impression: Sepsis Additional Impression: UTI (urinary tract infection) Disposition: ADMITTED INPATIENT Admitting Physician: Cali Lopez Condition: STABLE Referrals: AMARIS NICHOLE MD (PCP) Sepsis Assessment Date and Time of Assessment Date: Nov 26, 2019 Time: 15:30 Vital Signs Vital Signs Vital Signs Date Time Temp Pulse Resp B/P (MAP) Pulse Ox O2 Delivery O2 Flow Rate FiO2 11/26/19 15:00 98.3 97 20 94 Room Air Respirations Respiratory Effort: Normal Respiratory Pattern: Normal Cardiovascular Pulse Rhythm: Regular HEART: No rubs, clicks or gallop Lung Sounds Breath Sounds: Clear Capillary Refill Capillary Refill: Rt Hand < 3 seconds Peripheral Pulse Pulse Location: Monitor Pulse Strength: Normal (2+) Pulse Assessment Method: Monitor Integumentary Skin: Warm Skin Moisture: Dry Skin Turgor: Normal Skin Color: no erythema Fingernail Color: WNL Sepsis Assessment Date and Time of Assessment Date: Nov 26, 2019 Time: 16:50 Fluid Challenge: Is the fluid challenge complet: No IBW Target Volume Used: No BMI > 30: No Blood Culture TIme: 16:51 Time Antibiotics Given: 17:00 Vital Signs Vital Signs Vital Signs Date Time Temp Pulse Resp B/P (MAP) Pulse Ox O2 Delivery O2 Flow Rate FiO2 11/26/19 15:00 98.3 97 20 94 Room Air Temperature Source: Oral Respirations Respiratory Effort: Normal Respiratory Pattern: Normal Cardiovascular Pulse Rhythm: Regular Heart: No rubs, clicks or gallop Lung Sounds Breath Sounds: Clear Capillary Refill Capillary Refill: Rt Hand < 3 seconds Peripheral Pulse Pulse Location: Monitor Pulse Strength: Normal (2+) Pulse Assessment Method: Monitor Integumentary Skin: Warm Skin Moisture: Dry Skin Turgor: Normal Skin Color: warm Fingernail Color: WNL Problem Qualifiers Primary Impression: Sepsis Sepsis type: sepsis due to unspecified organism Sepsis acute organ dysfunction status: without acute organ dysfunction Qualified Codes: A41.9 - Sepsis, unspecified organism Additional Impression: UTI (urinary tract infection) Urinary tract infection type: acute cystitis Hematuria presence: with hem aturia Qualified Codes: N30.01 - Acute cystitis with hematuria RICHARD PENA DO Nov 26, 2019 15:23
[2019-11-26 16:01] LABS: BACTERIA,URINE MANY /HPF (0-FEW); BILIRUBIN,URINE NEG (NEG); CLARITY,URINE CLEAR; COLOR,URINE YELLOW; GLUCOSE,URINE NEG (NEG); NITRITE,URINE NEG (NEG); SQUAMOUS EPITHELIAL CELL,UR OCC /LPF; UROBILINOGEN,URINE 0.2 mg/dL (0.2 mg/dL); WBC,URINE >40 /HPF (0-4)
[2019-11-26 16:18] LABS: BASO # 0.1 x10^3/uL (0.0-0.2); BASO % 1 % (0-3); EOS # 0.1 x10^3/uL (0.0-0.7); EOS % 1 % (0-3); HEMATOCRIT 33.8 % (36.0-47.0); HEMOGLOBIN 11.3 g/dL (12.0-15.5); LYMPH # 0.6 x10^3/uL (1.0-4.8); LYMPH % 5 % (24-48); MEAN CORPUSCULAR HEMOGLOBIN 30 pg (25-35); MEAN CORPUSCULAR HGB CONC 33 g/dL (31-37); MEAN CORPUSCULAR VOLUME 91 fL (79-100); MONO # 1.2 x10^3/uL (0.0-1.1); MONO % 9 % (0-9); NEUT # 10.7 x10^3uL (1.8-7.7); NEUT % 85 % (31-73); PLATELET COUNT 444 x10^3/uL (140-400); RED BLOOD COUNT 3.72 x10^6/uL (3.50-5.40); RED CELL DISTRIBUTION WIDTH 14.1 % (11.5-14.5); WHITE BLOOD COUNT 12.7 x10^3/uL (4.0-11.0)
[2019-11-26] MEDS: IV NORMAL SALINE 1,000ML 1,000 ML IV SCH ×2 (16:30→20:45)
[2019-11-26 16:35] LABS: ALBUMIN 2.5 g/dL (3.4-5.0); ALBUMIN/GLOBULIN RATIO 0.6 (1.0-1.7); CALCIUM 8.7 mg/dL (8.5-10.1); GFR 53.5; POTASSIUM 4.7 mmol/L (3.5-5.1); TOTAL BILIRUBIN 0.3 mg/dL (0.2-1.0)
[2019-11-26] MEDS ORDERED: IV NORMAL SALINE 50ML 50 ML ONE (16:50)
[2019-11-26] MEDS ORDERED: cefTRIAXone SODIUM 1 GM VIAL ONE (16:50)
[2019-11-26 17:14] LABS: % EOS 1 % (0-5); % LYMPHS 12 % (24-48); % MONOS 6 % (0-10); % SEGS 81 % (35-66); PLT ESTIMATE INCREASED (ADEQUATE)
[2019-11-26] MEDS ORDERED: ONDANSETRON PF 4 MG/2 ML VIAL. IV PRN (17:30)
[2019-11-26 18:21] VITALS: BP 193/79
--- NOTE | 2019-11-26 18:41 | NUR ---
Pt arrived via EMS at approximately 1800. Pt is oriented to self. Bed in lowest position, call light within reach, non-skid socks applied, environmental monitoring technician applied. BP upon arrival 193/97, Heart Rate 107. Called of high BP. 10 mg Hydralazine IVP Q4hrs ordered PRN for HTN. Will continue to monitor and assess. Pt is confused stating "Help Me!" RAILROAD SURVEYOR went into pt's room reassuring pt that she is in the hospital and we are here to help her. Chopped Diet ordered. Pt admitted for UTI and Sepsis. Pt has indwelling catheter. Pt has peripheral IV to L forearm with NS at 100 mL/hr. Pt is have 1590 mL total of normal saline. ER nurse stated pt has 185 mLs to go. Call light within reach, pt encouraged to call for assistance to bathroom.
[2019-11-26] MEDS: hydrALAZINE 20 MG/ML VIAL. IV PRN (18:52)
[2019-11-26] MEDS ORDERED: LORA-254 PO (19:13)
[2019-11-26] MEDS ORDERED: MIRT15TA3 PO (19:13)
[2019-11-26] MEDS ORDERED: POTA20TA83 PO (19:13)
[2019-11-26] MEDS ORDERED: ACET325T9 PO (19:13)
[2019-11-26] MEDS ORDERED: LACT1CAP21 PO (19:13)
[2019-11-26 20:22] VITALS: BP 178/75
[2019-11-26 20:34] VITALS: BP 184/70
[2019-11-26] MEDS ORDERED: LORazepam 1 MG TABLET PO PRN (20:45)
[2019-11-26] MEDS: LISINOPRIL 10 MG TABLET PO SCH (21:49)
[2019-11-26] MEDS: POTASSIUM CHLORIDE 20 MEQ TABLET.ER. PO SCH (21:49)
[2019-11-26] MEDS: MIRTAZAPINE 15 MG TABLET PO SCH (21:49)
[2019-11-26] MEDS: levETIRAcetam 500 MG TABLET PO SCH (21:49)
--- NOTE | 2019-11-26 23:36 | RAD ---
Chest AP portable at 1715: Reason for examination: Cough. Comparison is made to previous study dated 11/08/2019. The heart size is normal. Mediastinum is unremarkable. Lung wasserman show a mild increase in markings in the right upper lobe which may reflect some early infiltrates. No acute bony abnormalities are seen. Impression: Mild increase in markings in the right upper lobe which may reflect some early infiltrates. Electronically signed by: Sujey Martin MD (11/26/2019 11:33 PM) [id number]
[2019-11-26 23:50] VITALS: BP 169/76
[2019-11-27 06:19] VITALS: BP 181/90
[2019-11-27] MEDS: hydrALAZINE 20 MG/ML VIAL. IV PRN (06:22)
[2019-11-27 06:35] LABS: BASO # 0.1 x10^3/uL (0.0-0.2); BASO % 1 % (0-3); EOS # 0.1 x10^3/uL (0.0-0.7); EOS % 1 % (0-3); HEMATOCRIT 29.6 % (36.0-47.0); LYMPH # 0.9 x10^3/uL (1.0-4.8); LYMPH % 10 % (24-48); MEAN CORPUSCULAR HEMOGLOBIN 31 pg (25-35); MEAN CORPUSCULAR HGB CONC 34 g/dL (31-37); MEAN CORPUSCULAR VOLUME 90 fL (79-100); MONO # 0.9 x10^3/uL (0.0-1.1); MONO % 10 % (0-9); NEUT # 7.2 x10^3uL (1.8-7.7); NEUT % 79 % (31-73); PLATELET COUNT 387 x10^3/uL (140-400); RED BLOOD COUNT 3.27 x10^6/uL (3.50-5.40); RED CELL DISTRIBUTION WIDTH 14.6 % (11.5-14.5); WHITE BLOOD COUNT 9.1 x10^3/uL (4.0-11.0)
[2019-11-27 06:51] LABS: ALBUMIN 2.3 g/dL (3.4-5.0); ALBUMIN/GLOBULIN RATIO 0.6 (1.0-1.7); CALCIUM 8.3 mg/dL (8.5-10.1); CREATININE 0.7 mg/dL (0.6-1.0); GFR 80.7; POTASSIUM 4.1 mmol/L (3.5-5.1); TOTAL BILIRUBIN 0.3 mg/dL (0.2-1.0); TOTAL PROTEIN 6.4 g/dL (6.4-8.2)
[2019-11-27] MEDS: amLODIPine BESYLATE 10 MG TABLET PO SCH (07:47)
[2019-11-27] MEDS: POTASSIUM CHLORIDE 20 MEQ TABLET.ER. PO SCH ×3 (07:47→20:03)
[2019-11-27] MEDS: LACTOBACILLUS RHAMNOSUS GG 1 CAPSULE. PO SCH ×2 (07:47→20:03)
[2019-11-27] MEDS: levETIRAcetam 500 MG TABLET PO SCH ×2 (07:47→20:04)
[2019-11-27] MEDS: LISINOPRIL 10 MG TABLET PO SCH ×2 (07:48→20:03)
[2019-11-27 07:52] VITALS: BP 155/78
[2019-11-27] MEDS: IV NORMAL SALINE 1,000ML 1,000 ML IV SCH ×2 (10:05→20:00)
[2019-11-27 10:40] VITALS: BP 112/66
[2019-11-27] MEDS: ACETAMINOPHEN 325 MG TABLET PO PRN ×2 (11:19→20:03)
--- NOTE | 2019-11-27 11:22 | NUR ---
NURSING NOTE PT C/O BACK PAIN WHILE UP IN CHAIR TODAY. PT GIVEN TYLENOL AND PILLOW BEHIND HER BACK FOR COMFORT. PT CURRENTLY STILL SITTING IN CHAIR. WILL CONTINUE TO MONITOR. ROHAN REDDY.
[2019-11-27 14:54] VITALS: BP 100/59
--- NOTE | 2019-11-27 15:46 | HP ---
ADMIT DATE: 11/26/2019 HISTORY OF PRESENT ILLNESS: The patient is a 79-year-old female patient, a resident at [facility], who was brought to the emergency room of [facility] with weakness that is generalized. She has been telling the staff that they feel like I am about to have the seizure. The patient did have the seizure 2 weeks ago and is on anti-seizure medication. No reported recurrent seizure. The usp reported fever, that she does not feel well. She is repeatedly calling out to the nurses despite reassurance, but without any specific complaint. She was extensively investigated in the emergency room, was found to have leukocytosis with a white cell count 12,700. Her urinalysis showed the urine was yellow, clear. There is moderate amount of leukocyte esterase, more than 40 wbc's, and many bacteria. Her chemistry, however, showed that she is slightly dehydrated and was admitted for treatment of her urinary tract infection. PAST MEDICAL HISTORY: Significant for hypertension, seizure disorder, osteoarthritis, senile macular degeneration. PAST SURGICAL HISTORY: Significant for tonsillectomy. FAMILY HISTORY: Noncontributory. SOCIAL HISTORY: She currently resides at [facility]. She used to live with her . She does not smoke, drink alcohol or use any recreational drugs. ALLERGIES: She has no known drug allergies. MEDICATIONS: She is currently on following medications: She is on amlodipine besylate 10 mg once a day, lisinopril 10 mg twice a day, acetaminophen 650 mg every 6 hours, levetiracetam 1000 mg p.o. b.i.d., mirtazapine 15 mg at bedtime, lorazepam 0.5 mg every 6 hours, potassium chloride 20 mEq 3 times a day, lactobacillus rhamnosus for Culturelle 1 twice a day. REVIEW OF SYSTEMS: As per history of present illness. PHYSICAL EXAMINATION: GENERAL: On arrival to the emergency room, the patient was obviously confused, pale, but no jaundice, cyanosis. No lymphadenopathy or thyromegaly. No jugular venous distension. No limb edema. VITAL SIGNS: Her heart rate was 97, blood pressure 133/73, temperature was 98.3, respiratory rate 20, and oxygen saturation was 94% on room air. HEAD, EYES, EARS, NOSE AND THROAT: Showed normocephalic, atraumatic. NECK: Supple. HEART: Showed normal first and second sounds. No gallop, rub or murmur. CHEST: Clear to auscultation. No crepitation or rhonchi. ABDOMEN: Distended, soft, nontender. NEUROLOGIC: She was confused, but without any obvious lateralizing sign. All cranial nerves intact. She moves extremities without difficulty, although she is mostly bedbound, chair bound. LABORATORY DATA: While in the emergency room, her lab work showed a white cell count 12,700; hemoglobin 11; hematocrit 33; MCV 91, and platelet count of 444,000. Her chemistry showed a serum sodium 140, potassium 4.7, chloride 102, bicarbonate 30, anion gap of 8, BUN 29, creatinine 1, estimated GFR was 53 mL per minute. Her glucose was 118, calcium was 8.7. Total bilirubin, ALT normal, AST, alkaline phosphatase are elevated. Total protein 7, albumin was 2.5. Her urinalysis showed that the urine was yellow, clear with a pH of 6.5, specific gravity of 1.020, with moderate amount of leukocyte esterase, 3-5 rbc's, more than 40 wbc's, and many bacteria and was diagnosed with altered mental status, sepsis and urinary tract infection. The patient was started on IV ceftriaxone as well as IV fluid. We will continue all her medication and urine was sent for culture and sensitivity and we will adjust antibiotic according to the culture and sensitivity. PRIYANKA BROWN MD DR: JOHNNY/julia JOB#: [id number] / [id number]
[2019-11-27 19:21] VITALS: BP 127/64
[2019-11-27] MEDS: LORazepam 0.5 MG TABLET PO PRN (20:03)
[2019-11-27] MEDS: MIRTAZAPINE 15 MG TABLET PO SCH (20:04)
--- NOTE | 2019-11-27 21:10 | PN ---
DATE: SUBJECTIVE: The patient is resting slightly propped up in bed, no apparent distress. She is complaining of pain in her left flank area, but denied any fever or chills. Denies any nausea or vomiting. PHYSICAL EXAMINATION: GENERAL: When I examined her today, she was pale, no jaundice, cyanosis or thyromegaly. No jugular venous distention. No limb edema. VITAL SIGNS: Her heart rate was 86, blood pressure 100/59, temperature was 97.4, respiratory rate 20, and oxygen saturation was 95%. Rest of exam is stable, has not changed. Her intake was 1440, output was 1000. LABORATORY DATA: Her lab work showed ____ was 9100, hemoglobin 10, hematocrit 29, MCV 90 and platelet count 387,000. Serum sodium 141, potassium 4.1, chloride 105, bicarbonate 29, anion gap of 7, BUN 21, creatinine 0.7, estimated GFR was 80 mL per minute. Her glucose was 86, calcium was 8.3. Total bilirubin, AST, ALT, alkaline phosphatase were normal. Total protein 6.4, albumin was 2.3. ASSESSMENT: 1. Urinary tract infection. 2. Hypertension. 3. Seizure disorder. 4. Severe protein-calorie malnutrition. 5. Debility and deconditioning. PRIYANKA BROWN MD DR: JOHNNY/julia JOB#: [id number] / [id number]
[2019-11-27 22:09] VITALS: BP 149/70
[2019-11-28 05:44] VITALS: BP 157/79
[2019-11-28 06:22] LABS: CALCIUM 8.3 mg/dL (8.5-10.1); CREATININE 0.7 mg/dL (0.6-1.0); GFR 80.7; POTASSIUM 4.4 mmol/L (3.5-5.1)
[2019-11-28] MEDS: LISINOPRIL 10 MG TABLET PO SCH ×3 (08:15→20:54)
[2019-11-28] MEDS: levETIRAcetam 500 MG TABLET PO SCH ×2 (08:15→20:52)
[2019-11-28] MEDS: LACTOBACILLUS RHAMNOSUS GG 1 CAPSULE. PO SCH ×2 (08:15→20:52)
[2019-11-28] MEDS: amLODIPine BESYLATE 10 MG TABLET PO SCH (08:16)
[2019-11-28] MEDS: POTASSIUM CHLORIDE 20 MEQ TABLET.ER. PO SCH ×3 (08:16→20:52)
--- NOTE | 2019-11-28 09:36 | NUR ---
NURSING NOTES: THIS NURSE WENT TO PATIENT ROOM TO ANSWER CALL LIGHT. PATIENT STATED SHE NEEDED TO HAVE A BOWEL MOVEMENT. THIS NURSE INFORMED PATIENT SHE WAS A TWO ASSIST AND THAT I WOULD BE RIGHT BACK WITH SOME HELP. THIS NURSE RETURNED TO ROOM WITH HELP FROM KIM MCMAHON. PATIENT ASSISTED X2 TO SIDE OF BED AND APPLIED GAIT BELT. WITH 2 ASSIST PATIENT TRANSFERRED PER STAND/PIVOT TO BEDSIDE COMMODE. ONCE PATIENT STATED SHE WAS READY TO GET OFF THE COMMODE, THIS NURSE AND KIM MCMAHON ATTEMPTED TRANSFER BACK TO BED PER STAND/PIVOT WITH GAIT BELT. PATIENT'S KNEES BUCKLED DURING TRANSFER AND PATIENT LOWERED TO THE FLOOR. THIS NURSE YELLED FOR HELP AND ROHAN CHAPMAN ENTERED ROOM. PATIENT THEN ASSISTED OFF OF FLOOR WITH 3 ASSIST TO THE BED. PATIENT ASSESSED ONCE BACK IN BED, NO INJURIES NOTED. PATIENT MADE COMFORTABLE AND GIVEN CALL LIGHT. WILL CONTINUE TO MONITOR.
[2019-11-28 10:14] VITALS: BP 128/74
[2019-11-28] MEDS: ACETAMINOPHEN 325 MG TABLET PO PRN (10:47)
[2019-11-28] MEDS: LORazepam 0.5 MG TABLET PO PRN ×2 (10:47→20:52)
[2019-11-28] MEDS: IV NORMAL SALINE 1,000ML 1,000 ML IV SCH (12:45)
[2019-11-28 15:15] VITALS: BP 105/60
[2019-11-28 19:25] VITALS: BP 100/59
[2019-11-28] MEDS: MIRTAZAPINE 15 MG TABLET PO SCH (20:52)
--- NOTE | 2019-11-28 20:54 | NUR ---
Evening dose of Lisnopril held due to low BP reading
[2019-11-28 22:10] VITALS: BP 145/70
--- NOTE | 2019-11-28 22:16 | PN ---
DATE: 11/28/2019 SUBJECTIVE: The patient is resting, almost flat in bed, in no apparent distress. She apparently has been complaining of neck pain and back pain, although by the time I saw her, she was pain free. She continued to be extremely weak and debilitated. She required 2-person assist to get her from bed to chair and vice versa. She can only feed herself. PHYSICAL EXAMINATION: GENERAL: When I saw her this afternoon, she looked pale, somewhat cachectic, but not jaundiced, cyanosed or thyromegaly. No jugular venous distention. No lower limb edema. VITAL SIGNS: Her heart rate was 86, blood pressure 128/74, temperature was 97.6, respiratory rate was 20, and oxygen saturation was 94% on room air. HEAD, EYES, EARS, NOSE AND THROAT: Showed normocephalic, atraumatic. NECK: Supple. HEART: Showed normal first and second heart sounds. No gallop or murmur. CHEST: Clear to auscultation. No crepitation or rhonchi. ABDOMEN: Scaphoid, soft, nontender. NEUROLOGIC: She is awake, alert, though confused. All her cranial nerves intact. She moves upper extremities to much greater extent than lower extremities. She is mostly bedbound, chair bound. She requires 2-person assist to get her from bed to chair and vice versa. She has an indwelling Gonzalez catheter. Her intake over the last 24 hours was 1440 and output was 1000. LABORATORY DATA: As of yesterday showed a white cell count 9000, hemoglobin 10, hematocrit 30, MCV 90 and platelet count 387,000. Her serum sodium 140, potassium 4.4, chloride 105, bicarbonate 27, anion gap of 8, BUN 24, creatinine 0.7, estimated GFR was 80 and glucose 85 and calcium was 8.3. Urinalysis showed more than a moderate amount of leukocyte esterase and a large amount of wbc's and many bacteria. Her urine culture has grown more than 100,000 colony forming units per mL of Staphylococcus species. The identification and sensitivity is still pending. ASSESSMENT: 1. Urinary tract infection, growing more than 100,000 colony forming units per mL of Staphylococcus species, identification and sensitivity is still pending. 2. Hypertension, much better controlled. 3. Seizure disorder, well controlled on Keppra. 4. Severe protein-calorie malnutrition. 5. Debility and deconditioning. The patient requiring a 2-person assist to transfer from bed to chair and vice versa. The only thing she can do for herself is to feed herself. PRIYANKA BROWN MD DR: JOHNNY/julia JOB#: [id number] / [id number]
[2019-11-29 05:35] VITALS: BP 146/73
[2019-11-29 09:00] LABS: HEMATOCRIT 32.2 % (36.0-47.0); HEMOGLOBIN 10.7 g/dL (12.0-15.5); RED BLOOD COUNT 3.49 x10^6/uL (3.50-5.40); RED CELL DISTRIBUTION WIDTH 14.5 % (11.5-14.5); WHITE BLOOD COUNT 6.6 x10^3/uL (4.0-11.0)
[2019-11-29] MEDS ORDERED: LIDOCAINE (700MG/PATCH) PATCH. TD SCH (09:00)
[2019-11-29] MEDS: amLODIPine BESYLATE 10 MG TABLET PO SCH (09:05)
[2019-11-29] MEDS: LACTOBACILLUS RHAMNOSUS GG 1 CAPSULE. PO SCH ×2 (09:05→19:27)
[2019-11-29] MEDS: levETIRAcetam 500 MG TABLET PO SCH ×2 (09:06→19:26)
[2019-11-29] MEDS: POTASSIUM CHLORIDE 20 MEQ TABLET.ER. PO SCH ×3 (09:06→19:26)
[2019-11-29] MEDS: LISINOPRIL 10 MG TABLET PO SCH ×2 (09:06→19:27)
[2019-11-29 09:08] LABS: CALCIUM 8.4 mg/dL (8.5-10.1); CREATININE 0.9 mg/dL (0.6-1.0); GFR 60.4; POTASSIUM 4.4 mmol/L (3.5-5.1)
[2019-11-29 10:08] VITALS: BP 131/64
--- NOTE | 2019-11-29 12:12 | NUR ---
Plan is to discharge today back to [facility], C&S resulted. Awaiting for Dr Lopez to arrive to place discharge orders.
--- NOTE | 2019-11-29 12:49 | NUR ---
Gonzalez cath removed at this time, will assess for retention and discuss with physician if patient continues to have issues with retention.
--- NOTE | 2019-11-29 14:02 | NUR ---
Bladder scan obtained at this time, 13ml noted in bladder and patient remains dry at this time.
[2019-11-29 14:26] VITALS: BP 117/63
[2019-11-29 16:07] VITALS: BP 195/84
[2019-11-29] MEDS ORDERED: LINE600T12 PO (16:28)
--- NOTE | 2019-11-29 16:30 | DISCH ---
DISCHARGE ORDERS DISCHARGE DATE: Nov 29, 2019 FINAL DIAGNOSIS UTI HTN SEIZURE D O CONDITION AT DISCHARGE: Stable Code Status: Full POST DISCHARGE ORDERS: ACTIVITY ORDERS: Activity as tolerated WEIGHT BEARING STATUS: As tolerated DIET AFTER DISCHARGE: Regular WOUND/INCISION CARE: No wound care needed TREATMENT/EQUIPMENT ORDERS: ADAPTIVE EQUIPMENT NEEDED: Wheelchair DISCHARGE MEDICATIONS: Home Meds Active Scripts Linezolid (ZYVOX) 600 Mg Tablet, 600 MG PO BID for uti with MRSA for 7 Days, #14 TAB Prov:PRIYANKA BROWN MD 11/29/19 Reported Medications Lorazepam (ATIVAN) 1 Mg Tablet, 0.5 MG PO PRN Q6HRS PRN for ANXIETY / AGITATION, TAB 11/26/19 Acetaminophen (TYLENOL) 325 Mg Tablet, 650 MG PO PRN Q6HRS PRN for PAIN / TEMP, TAB 11/26/19 Potassium Chloride (Potassium Chloride) 20 Meq Tablet.er, 20 MEQ PO TID for SUPPLEMENT, TAB.SR 11/26/19 Mirtazapine (MIRTAZAPINE) 15 Mg Tablet, 15 MG PO QHS for DEPRESSION, TAB 11/26/19 Lactobacillus Rhamnosus Gg (CULTURELLE) 1 Each Capsule, 1 EACH PO BID for PROBIOTIC, CAP 11/26/19 Levetiracetam (LEVETIRACETAM) 1,000 Mg Tablet, 1000 MG PO BID for Seizure LAST DOSE GIVEN: DATE: TIME: NEXT DOSE DUE: DATE: TIME: 11/08/19 Lisinopril (LISINOPRIL) 10 Mg Tablet, 10 MG PO BID for Htpertension 11/08/19 Amlodipine Besylate (AMLODIPINE BESYLATE) 10 Mg Tablet, 10 MG PO DAILY for Hypertension 11/08/19 Discontinued Reported Medications Phenytoin Sodium Extended (PHENYTOIN SODIUM EXTENDED) 100 Mg Capsule, 300 MG PO HS for Seizure 11/08/19 Atorvastatin Calcium (ATORVASTATIN CALCIUM) 10 Mg Tablet, 10 MG PO HS for High Cholesterol LAST DOSE GIVEN: DATE: TIME: NEXT DOSE DUE: DATE: TIME: 11/08/19 PRIYANKA BROWN MD Nov 29, 2019 16:30
[2019-11-29 17:59] VITALS: BP 131/71
[2019-11-29] MEDS: ACETAMINOPHEN 325 MG TABLET PO PRN (19:28)
[2019-11-29] MEDS ORDERED: LINEZOLID 600 MG TABLET PO SCH (21:00)
--- NOTE | 2019-11-29 23:31 | PN ---
DATE: 11/29/2019 SUBJECTIVE: The patient is resting, slightly propped up in bed, in no apparent distress. She is awake, alert, continued to require 2-person assist to transfer from bed to chair. We did remove the Gonzalez catheter and she was able to urinate. Her urine culture has grown more than 100,000 colony forming units per mL Staphylococcus aureus that is methicillin resistant. I discontinued her Rocephin and started her on linezolid, and unfortunately, it was too for us to transfer her back to [facility]. PHYSICAL EXAMINATION: GENERAL: When I examined her, she looked well and was clearly in no apparent respiratory distress. No pallor, jaundice, cyanosis or thyromegaly. No jugular venous distension. No lower limb edema. VITAL SIGNS: Her heart rate was 82, blood pressure 117/63, temperature 97.4, respiratory rate was 20, and oxygen saturation was 94%. The rest of clinical exam is stable. Her intake was 600, output was 1350, as of this morning, her white cell count was 6600, hemoglobin 10.7, hematocrit 32, MCV 92, and platelet count of 138,000. Her chemistry showed a serum sodium 137, potassium 4.4, chloride 102, bicarbonate 29, anion gap of 6, BUN 22, creatinine 0.9, estimated GFR was 60 mL per minute. Her glucose 121, calcium was 8.4. ASSESSMENT: 1. Urinary tract infection with growth of more than 100,000 colony forming units per mL of methicillin-resistant Staphylococcus aureus sensitive to linezolid. 2. Hypertension, much better controlled. 3. Seizure disorder, well controlled on Keppra. 4. Severe protein-calorie malnutrition. 5. Severe debility and deconditioning. She continued to require 2-person assist to transfer her from bed to chair and vice versa. She can only feed herself. PLAN: To discontinue Rocephin and start linezolid and we will discharge her tomorrow morning to [facility] to finish treatment as an outpatient. PRIYANKA BROWN MD DR: JOHNNY/julia JOB#: [id number] / [id number]
[2019-11-30 08:10] VITALS: BP 131/71
[2019-11-30] MEDS: amLODIPine BESYLATE 10 MG TABLET PO SCH (08:10)
[2019-11-30] MEDS: LACTOBACILLUS RHAMNOSUS GG 1 CAPSULE. PO SCH (08:11)
[2019-11-30] MEDS: levETIRAcetam 500 MG TABLET PO SCH (08:11)
[2019-11-30] MEDS: POTASSIUM CHLORIDE 20 MEQ TABLET.ER. PO SCH (08:11)
--- NOTE | 2019-11-30 09:30 | NUR ---
NSG NOTE; DISCHARGE REPORT CALLED TO NADIA MADRIGAL AT 719 WITH UPDATE CALLED AT 924 PAPER COPY OF CHART INCLUDING MED REC SENT WITH PT DISCHARGED AT 929 VIA CART ACCOMP BY EMS PERSONNEL FOR RETURN TO [facility]
== END 2019-11-30 09:30 | DRG 871 ==
LOC: ER 14:58 → 1 SOUTH 17:00
PROVIDERS: ADMIT Internal Medicine; ATTEND Internal Medicine
DX: A41.9 Sepsis, unspecified organism (principal); E43 Unspecified severe protein-calorie malnutrition; N39.0 Urinary tract infection, site not specified; Z68.1 Body mass index [BMI] 19.9 or less, adult; E78.5 Hyperlipidemia, unspecified; E11.9 Type 2 diabetes mellitus without complications; I10 Essential (primary) hypertension; E86.0 Dehydration; G40.909 Epilepsy, unspecified, not intractable, without status epilepticus; M19.90 Unspecified osteoarthritis, unspecified site; B95.62 Methicillin resistant Staphylococcus aureus infection as the cause of diseases classified elsewhere; Z86.73 Personal history of transient ischemic attack (TIA), and cerebral infarction without residual deficits
CPT/HCPCS: 36415; 71045; 80048; 80053; 81001; 85007; 85025; 85027; 87040; 87086; 87186; 96361; 96365; 96375; J0360; J0696; J2060; 97110; 97535; 99291-25; J7030

== ENCOUNTER 2020-03-08 11:26 | Inpatient (IN) | payer MEDICARE, OTHER ==
[~2020-03-08] VITALS: Ht 175.3 cm; Wt 56.8 kg
[~2020-03-08 11:26] MED LIST changes: +ACET325T9 PO; +LACT1CAP21 PO; +LINE600T12 PO; +LORA-254 PO; +MIRT15TA3 PO; +POTA20TA83 PO
[2020-03-08] MEDS ORDERED: IV NORMAL SALINE 1,000ML 1,000 ML IV ONE (11:45)
--- NOTE | 2020-03-08 11:50 | EKG ---
[address] [address] Test Date: 2020-03-08 Test Time: 11:47:29 Pat Name: GRABIEL DUKES Department: Room: Gender: F Hospital Coder: : [id number] Requested By: KIAN HERNANDEZ Order Number: [id number] Reading MD: Sam Sequeira Measurements Intervals [place] Rate: 73 P: 90 [place]: 162 QRS: 77 QRSD: 88 T: 74 QT: 460 QTc: 511 Interpretive Statements SINUS RHYTHM ATRIAL PREMATURE COMPLEX(ES) Electronically Signed On 03-09-2020 20:14:47 CDT by Sam Sequeira
--- NOTE | 2020-03-08 11:58 | PHYS DOC ---
Past History Past Medical History: CVA, Diabetes, Hypertension, Seizure, Other Additional Past Medical Histor: HLD Past Surgical History: No Surgical History Smoking: Non-smoker Alcohol Use: None Drug Use: None General Adult EDM: Chief Complaint: MECHANICAL FALL HPI: HPI: 79-year-old female presents via EMS with report of being found on the floor by her son. EMS reports son thinks she has been on the floor for the past 3 hours. Patient lives alone with her elderly and is checked and by their son. EMS reports sons concerned that she is unable to live at home. Patient denies fall. Denies head or neck pain. Denies chest pain or lightheadedness. Denies nausea, vomiting, or diarrhea. Denies dysuria or hematuria. Denies any pain at this time. Review of Systems: Review of Systems: Constitutional: Denies fever or chills Eyes: Denies redness or eye pain HENT: Denies nasal congestion or sore throat Respiratory: Denies cough or shortness of breath Cardiovascular: Denies chest pain or palpitations GI: Denies abdominal pain, nausea, or vomiting : Denies dysuria or hematuria Musculoskeletal: Denies back pain or joint pain Integument: Denies rash or skin lesions Neurologic: Denies headache, focal weakness or sensory changes; reports generalized weakness Complete systems were reviewed and found to be within normal limits, except as documented in this note. Current Medications: Current Meds: Current Medications Medications (Trade) Dose Ordered Sig/Ajay Start Time Stop Time Status Last Admin Dose Admin Sodium Chloride 1,000 ml @ 1,000 mls/hr 1X ONCE 03/08/20 11:45 03/08/20 12:44 Allergies: Allergies: Allergies Coded Allergies Type Severity Reaction Last Updated Verified No Known Drug Allergies 10/21/19 No Physical Exam: PE: Constitutional: Well developed, elderly female in no acute distress, non-toxic appearance HENT: Normocephalic, atraumatic, oropharynx moist Eyes: PERRL, EOMI, conjunctiva normal, no discharge, no nystagmus Neck: Normal range of motion, no tenderness, supple, no meningeal signs Cardiovascular: Heart rate normal, regular rhythm Lungs & Thorax: Bilateral breath sounds clear to auscultation, no wheezing Abdomen: Soft, no tenderness, no guarding/rebound tenderness Skin: Warm, dry, no erythema, no rash Extremities: No tenderness, ROM intact, no edema Neurologic: Alert and oriented X 2, confused to year and President but reports correct month, normal motor function, normal sensory function, no focal deficits noted EKG: EKG: @1147 NSR with PACs at 73bpm, NO ST elevation, QRS 88ms, QT/QTc 460/511ms Radiology/Procedures: Radiology/Procedures: PROCEDURE: CT HEAD AND CERVICAL SPINE WO CT Head W/O Contrast: History: Weakness Comparison: none Axial images were obtained without contrast. There is marked diffuse atrophy. There is no mass effect, extraaxial fluid collections or hydrocephalus. There is no focal loss of austin-white matter distinction to suggest acute ischemia, i.e. stroke. Impression: No acute findings. End impression CT C-Spine without contrast: Clinical History: Weakness Technique: Axial helical images of the cervical spine were obtained without contrast, axial coronal and sagittal reconstruction was performed. COMPARISON: November 15, 2014 Findings: There is no loss of vertebral body stature. There is no prevertebral soft tissue swelling. There is grade 1 anterolisthesis of C4 on C5. There is straightening of the normal cervical lordosis which can be positional or could be chronic. The C1-C2 relationship is normal. The visualized osseous structures appear normal. Evaluation of the central canal is limited without contrast. There is multiple posterior disc bulges resulting in flattening of the thecal sac. There does not appear to be gross flattening of the cervical cord. There is moderate to marked narrowing of multiple neuroforamen. The small nodules in the thyroid which are seen procedure. Impression: No acute findings. Clinical correlation suggested. PQRS Compliance Statement: One or more of the following individualized dose reduction techniques were utilized for this examination: 1. Automated exposure control 2. Adjustment of the mA and/or kV according to patient size 3. Use of iterative reconstruction technique Electronically signed by: Arturo Vargas III, MD (03/08/2020 1:07 PM) [id number] PROCEDURE: PORTABLE CHEST 1V INDICATION: Weakness COMPARISON: November 26, 2019 FINDINGS: Single view of chest obtained. Cardiac silhouette is similar to prior. Disorganized pulmonary markings bilaterally with an overall similar appearance of the lungs compared to prior without a definite new region of consolidation IMPRESSION: * Disorganized pulmonary markings bilaterally are again seen without a definite new region of consolidation. Electronically signed by: Nemesio Wen MD (03/08/2020 1:18 PM) [id number] Course & Med Decision Making: Course & Med Decision Making Pertinent Labs and Imaging studies reviewed. (See chart for details) Elderly patient presents via EMS with report of being found on the ground by her son and concern for joint weakness and inability to care for herself. Patient's mentation slightly confused. Patient is able to give name, date of , place, and month but unable to provide year or president of [facility]. NIHSS 0. EKG stable. Labs obtained and posted to chart. Hypokalemia addressed. Troponin elevated. [facility] review notes patient had similar troponin elevation in October 2019. CT head/cervical spine and chest x-ray appears stable. IV fluid hydration provided. Aspirin given. Patient requiring admission for further evaluation and treatment. Discussed with Dr. Lopez (hospitalist) who is in agreement with admission. Discussed findings and plan with patient, who acknowledges understanding and agreement. Dragon Disclaimer: Dragon Disclaimer: This electronic medical record was generated, in whole or in part, using a voice recognition dictation system. Departure Departure: Impression: Primary Impression: Generalized weakness Additional Impressions: Hypokalemia Elevated troponin Disposition: ADMITTED INPATIENT Admitting Physician: Cali Lopez Condition: GUARDED Referrals: AMARIS NICHOLE MD (PCP) Critical Care Time Critical care time was 30 minutes which includes time at bedside, spent in discussion of patient's care with specialists and/or family members, with interpretation of laboratory and/or radiological studies and is exclusive of procedures. NIHSS - ED NIH Stroke Scale: NIH Stroke Scale Response (Comments) Value Level of Consciousness: 0 Alert/Responsive 0 LOC Questions: 0 Answers both correctly 0 LOC Commands: 0 Performs both tasks 0 Best Gaze: 0 Normal 0 Visual: 0 No visual loss 0 Facial Palsy: 0 Normal, symmetrical 0 Motor - Left Arm 0 No drift 0 Motor - Right Arm 0 No drift 0 Motor - Left Leg 0 No drift 0 Motor: Right Leg 0 No drift 0 Limb Ataxia: 0 Absent 0 Sensory: 0 No loss 0 Best Language: 0 Normal 0 Dysathria: 0 Normal 0 Extinction and Inattention: 0 Normal 0 Total 0 HERNANDEZKIAN DO Mar 08, 2020 11:58
[2020-03-08 12:24] LABS: BASO % 0 % (0-3); EOS % 0 % (0-3); HEMATOCRIT 34.8 % (36.0-47.0); HEMOGLOBIN 11.4 g/dL (12.0-15.5); LYMPH # 0.2 x10^3/uL (1.0-4.8); LYMPH % 3 % (24-48); MEAN CORPUSCULAR HEMOGLOBIN 30 pg (25-35); MEAN CORPUSCULAR HGB CONC 33 g/dL (31-37); MEAN CORPUSCULAR VOLUME 91 fL (79-100); MONO # 0.5 x10^3/uL (0.0-1.1); MONO % 6 % (0-9); NEUT # 8.6 x10^3uL (1.8-7.7); NEUT % 92 % (31-73); PLATELET COUNT 224 x10^3/uL (140-400); RED BLOOD COUNT 3.81 x10^6/uL (3.50-5.40); RED CELL DISTRIBUTION WIDTH 14.2 % (11.5-14.5); WHITE BLOOD COUNT 9.3 x10^3/uL (4.0-11.0)
[2020-03-08 12:43] LABS: CALCIUM 8.9 mg/dL (8.5-10.1); CREATININE 1.1 mg/dL (0.6-1.0); GFR 47.9; POTASSIUM 3.4 mmol/L (3.5-5.1)
[2020-03-08 12:59] LABS: ALBUMIN 3.4 g/dL (3.4-5.0); TOTAL BILIRUBIN 0.6 mg/dL (0.2-1.0); TOTAL PROTEIN 6.9 g/dL (6.4-8.2)
--- NOTE | 2020-03-08 13:10 | RAD ---
CT Head W/O Contrast: History: Weakness Comparison: none Axial images were obtained without contrast. There is marked diffuse atrophy. There is no mass effect, extraaxial fluid collections or hydrocephalus. There is no focal loss of austin-white matter distinction to suggest acute ischemia, i.e. stroke. Impression: No acute findings. End impression CT C-Spine without contrast: Clinical History: Weakness Technique: Axial helical images of the cervical spine were obtained without contrast, axial coronal and sagittal reconstruction was performed. COMPARISON: November 15, 2014 Findings: There is no loss of vertebral body stature. There is no prevertebral soft tissue swelling. There is grade 1 anterolisthesis of C4 on C5. There is straightening of the normal cervical lordosis which can be positional or could be chronic. The C1-C2 relationship is normal. The visualized osseous structures appear normal. Evaluation of the central canal is limited without contrast. There is multiple posterior disc bulges resulting in flattening of the thecal sac. There does not appear to be gross flattening of the cervical cord. There is moderate to marked narrowing of multiple neuroforamen. The small nodules in the thyroid which are seen procedure. Impression: No acute findings. Clinical correlation suggested. PQRS Compliance Statement: One or more of the following individualized dose reduction techniques were utilized for this examination: 1. Automated exposure control 2. Adjustment of the mA and/or kV according to patient size 3. Use of iterative reconstruction technique Electronically signed by: Arturo Vargas III, MD (03/08/2020 1:07 PM) [id number]
[2020-03-08 13:19] LABS: % LYMPHS 4 % (24-48); % MONOS 6 % (0-10); % SEGS 90 % (35-66); PLT ESTIMATE ADEQUATE (ADEQUATE)
--- NOTE | 2020-03-08 13:21 | RAD ---
INDICATION: Weakness COMPARISON: November 26, 2019 FINDINGS: Single view of chest obtained. Cardiac silhouette is similar to prior. Disorganized pulmonary markings bilaterally with an overall similar appearance of the lungs compared to prior without a definite new region of consolidation IMPRESSION: * Disorganized pulmonary markings bilaterally are again seen without a definite new region of consolidation. Electronically signed by: Nemesio Wen MD (03/08/2020 1:18 PM) [id number]
[2020-03-08 13:35] LABS: BACTERIA,URINE 0 /HPF (0-FEW); BILIRUBIN,URINE NEG (NEG); CLARITY,URINE CLEAR; COLOR,URINE YELLOW; GLUCOSE,URINE NEG (NEG); NITRITE,URINE NEG (NEG); RBC,URINE 0 /HPF (0-2); UROBILINOGEN,URINE 0.2 mg/dL (0.2 mg/dL); WBC,URINE OCC /HPF (0-4)
[2020-03-08 13:36] LABS: HYALINE CASTS, URINE OCC /HPF; SQUAMOUS EPITHELIAL CELL,UR FEW /LPF
[2020-03-08] MEDS ORDERED: ACETAMINOPHEN 325 MG TABLET PO PRN ×2 (13:45→17:30)
[2020-03-08] MEDS ORDERED: ONDANSETRON PF 4 MG/2 ML VIAL. IVP PRN (13:45)
[2020-03-08] MEDS ORDERED: POTASSIUM CHLORIDE 20 MEQ TABLET.ER. PO ONE (14:00)
[2020-03-08] MEDS ORDERED: ASPIRIN 325 MG TABLET PO ONE (14:00)
[2020-03-08 15:59] VITALS: BP 185/81
[2020-03-08] MEDS ORDERED: DEXTROSE 50% 25 GM / 50ML DISP.SYRIN. IV PRN (17:30)
[2020-03-08 19:15] VITALS: BP 169/49
[2020-03-08 19:20] VITALS: BP 181/80
--- NOTE | 2020-03-08 19:21 | HP ---
ADMIT DATE: 03/08/2020 HISTORY OF PRESENT ILLNESS: The patient is a 79-year-old female patient, who was brought to the Emergency Room via EMS. She reportedly was found on the floor by her son, her son thinks that she had been on the floor for the past 3 hours. She lives with her elderly and their son checks on them frequently. ____ son is concerned that she is unable to live at home; however, the patient herself denied any fall, denied any head or neck pain, denied any chest pain or lightheadedness. Denied any nausea or vomiting. Denied any dysuria or hematuria. Denied in fact any pain. She was evaluated in the Emergency Room, has had lab work that was mostly unremarkable. She has had a CT scan of the head and cervical spine as well as chest x-ray and was admitted for further evaluation and treatment. PAST MEDICAL HISTORY: Significant for hypertension, seizure disorder, osteoarthritis, senile macular degeneration as well as type 2 diabetes. She has had also history of phenytoin toxicity and rhabdomyolysis and episode of acute kidney injury that has resolved. PAST SURGICAL HISTORY: Significant for tonsillectomy. FAMILY HISTORY: Noncontributory. SOCIAL HISTORY: She lives with her . She does not smoke, drink alcohol or use any recreational drugs. ALLERGIES: She has no known drug allergies. MEDICATIONS: She is currently on the following medications: She is on amlodipine besylate 10 mg once a day, lisinopril 10 mg once a day, Tylenol 650 mg every 6 hours. She is on Keppra 1000 mg twice a day, mirtazapine 15 mg at bedtime, lorazepam 0.5 mg every 6 hours, potassium chloride 20 mEq 3 times a day and lactobacillus rhamnosus 1 capsule twice a day. REVIEW OF SYSTEMS: As per history of present illness. PHYSICAL EXAMINATION: GENERAL: On arrival to the Emergency Room, the patient looked well and was clearly in no apparent respiratory distress. There was no pallor, jaundice, cyanosis or thyromegaly. No jugular venous distention. No lower limb edema. VITAL SIGNS: Her heart rate was 69, blood pressure was 185/81, temperature was 98.1, respiratory rate 22, and oxygen saturation was 96% on room air. HEAD, EYES, EARS, NOSE AND THROAT: Showed normocephalic, atraumatic. NECK: Supple. HEART: Showed normal first and second heart sounds. No gallop, rub or murmur. CHEST: Clear to auscultation. No crepitation or rhonchi. ABDOMEN: Scaphoid, soft, nontender. NEUROLOGIC: She is awake and alert. She is definitely more alert than I have seen her before. All her cranial nerves are intact. EXTREMITIES: She moves extremities without difficulty. In fact, she was able to walk with a walker. LABORATORY DATA: Her lab work on admission showed a white cell count 9300, hemoglobin 11, hematocrit 34, MCV 91, and platelet count 224,000. Her chemistry showed a serum sodium 142, potassium 3.4, chloride 105, bicarbonate 27, anion gap of 10, BUN 20, creatinine 1.1, estimated GFR was 48 mL per minute. Her glucose was 123, lactic acid was 1.8, calcium was 8.9, magnesium was 2. Total bilirubin, AST, ALT, alkaline phosphatase were normal. CK was 583. First set of cardiac enzymes showed troponin to be 0.133. Her total protein was 6.9, albumin was 3.4. Her prothrombin time was 10.3, INR 1, aPTT was 22. Urinalysis showed the urine was yellow, clear with a pH of 5.5, specific gravity of 1.020. The urine was negative for protein, glucose. There was a trace of ketones, trace of blood, negative for nitrite and leukocyte esterase. There were 0 rbc's, occasional wbc's, and no bacteria. IMAGING: CT scan of the head and neck showed that the patient has marked diffuse atrophy. There is no mass effect, extraaxial fluid collection or hydrocephalus. There is no focal loss of garcía white matter distinction to suggest acute ischemia. The CT scan of the cervical spine showed that there is no loss of vertebral body stature. There is no prevertebral soft tissue swelling. There is grade 1 anterolisthesis of C4 on C5. There is straightening of the normal cervical lordosis, which can be positional or could be chronic C1-C2, relationship is normal. The visualized osseous structures appear normal. Evaluation of the central canal is limited without contrast. There are multiple posterior disk bulges resulting in flattening of the thecal sac. There does not appear to be gross flattening of the cervical cord. There is moderate to marked narrowing of multiple neural foramina. There is a small nodule in the thyroid gland, which can be seen as before. ASSESSMENT: In summary, the patient was admitted with a fall, the cause of which is not clear. The patient is not forthcoming with any information. Her lab work showed that she has mild hypokalemia. She has normochromic normocytic anemia. Her first set of cardiac enzymes showed troponin to be slightly elevated at 0.133. PLAN: My plan is to obviously reconcile all her medication and I will do 2 more sets of cardiac enzyme. We will check her fasting lipid profile tomorrow and obviously would consult the yeast stacker if need be. I will also check her orthostatics and consult physical and occupational therapy. PRIYANKA BROWN MD DR: JOHNNY/julia JOB#: [id number] / [id number]
[2020-03-08 19:25] VITALS: BP 165/49
--- NOTE | 2020-03-08 19:36 | NUR ---
Patient care assumed. Patient in bed, fidgeting with bedding. Side rails wrapped for seizure precautions. Call light in reach, watch and glassess on bedside table per Patient request. Patient reoriented to being in hospital and verbalized understanding. Call light in reach, will monitor.
[2020-03-08] MEDS: MIRTAZAPINE 15 MG TABLET PO SCH (21:30)
[2020-03-08] MEDS: levETIRAcetam 500 MG TABLET PO SCH (21:30)
[2020-03-08] MEDS: LISINOPRIL 10 MG TABLET PO SCH (21:30)
[2020-03-08] MEDS: LACTOBACILLUS RHAMNOSUS GG 1 CAPSULE. PO SCH (21:30)
[2020-03-08] MEDS: OLANZapine 2.5 MG TABLET PO PRN (22:42)
[2020-03-08 22:49] VITALS: BP 149/62
[2020-03-09] MEDS: LORazepam 0.5 MG TABLET PO PRN ×2 (04:12→21:06)
[2020-03-09 04:53] VITALS: BP 145/50
[2020-03-09 06:18] LABS: ALBUMIN 3.1 g/dL (3.4-5.0); ALBUMIN/GLOBULIN RATIO 0.9 (1.0-1.7); CALCIUM 8.2 mg/dL (8.5-10.1); GFR 53.5; POTASSIUM 3.7 mmol/L (3.5-5.1); TOTAL BILIRUBIN 0.5 mg/dL (0.2-1.0); TOTAL PROTEIN 6.4 g/dL (6.4-8.2)
[2020-03-09] MEDS: INSULIN LISPRO 300 UNITS/3 ML VIAL. SQ SCH ×3 (07:43→16:53)
[2020-03-09] MEDS: LACTOBACILLUS RHAMNOSUS GG 1 CAPSULE. PO SCH ×3 (07:49→21:06)
[2020-03-09] MEDS: OLANZapine 2.5 MG TABLET PO PRN (07:49)
[2020-03-09] MEDS: levETIRAcetam 500 MG TABLET PO SCH ×2 (07:50→21:06)
[2020-03-09] MEDS: amLODIPine BESYLATE 10 MG TABLET PO SCH (07:50)
[2020-03-09] MEDS: LISINOPRIL 10 MG TABLET PO SCH ×2 (07:50→21:06)
[2020-03-09 10:37] VITALS: BP 144/71
--- NOTE | 2020-03-09 11:34 | PN ---
DATE: 03/09/2020 SUBJECTIVE: The patient is resting, slightly propped up in bed, in no apparent respiratory distress. She is definitely confused, hallucinating, although she generally seemed to be physically much better than her previous admissions. We did check her orthostatics and showed no evidence of any postural hypotension. She has 3 sets of cardiac enzymes, showed that the troponin was slightly elevated, but the patient herself has never complained of any chest pain or shortness of breath. When I examined her this morning, she was resting slightly propped up in bed, in no apparent distress, talking and pointing to thing that does not exist in the room. PHYSICAL EXAMINATION: GENERAL: She was pale, but no jaundice, cyanosis or thyromegaly. No jugular venous distention. No limb edema. VITAL SIGNS: Her heart rate was 74, blood pressure was 163/75, temperature was 99, respiratory rate was 20, and oxygen saturation was 92% on room air. HEAD, EYES, EARS, NOSE AND THROAT: Showed normocephalic, atraumatic. NECK: Supple. HEART: Showed normal first and second heart sounds. No gallop or murmur. CHEST: Clear to auscultation. No crepitation or rhonchi. ABDOMEN: Scaphoid, soft, nontender. NEUROLOGIC: She is awake, alert; however, she is definitely confused, hallucinating. All her cranial nerves are intact. She moves her extremities without difficulty. She is actually able to ambulate with a walker. Her intake over the last 24 hours was incompletely recorded, output was not recorded. LABORATORY DATA: Her white cell count was 9300, hemoglobin 11.4, hematocrit 35, MCV 91, and platelet count 224,000. Serum sodium was 140, potassium 3.7, chloride 103, bicarbonate 27, anion gap of 10, BUN 22, creatinine 1, estimated GFR was 54 mL per minute, her glucose was 73, calcium was 8.2. Total bilirubin, AST, ALT, alkaline phosphatase were normal. Total protein was 6.4, albumin was 3.1. Triglyceride was 51, total cholesterol 183, LDL was 93, VLDL was 10, and HDL cholesterol was 80 and the ratio of the total cholesterol to HDL cholesterol was 2. ASSESSMENT: This is a 79-year-old female patient, who was brought to the Emergency Room after she had a fall, the cause of which is not clear. The patient is very confused, does not give any information. Reportedly, her son said that she has been on the floor for almost 3 hours. She lives with her elderly that he himself also demented. On arrival, she did have mild hypokalemia that has improved. We did orthostatics, which showed no evidence of any postural hypotension. Three sets of cardiac enzyme as her first troponin was slightly elevated at 0.123; although, the patient herself did not complain of any chest pain, did not complain of shortness of breath, nausea, vomiting or diaphoresis. She has multiple other medical problems includin. Hypertension. 2. Seizure disorder. 3. Generalized osteoarthritis. 4. She is also known to have senile macular degeneration as well as type 2 diabetes. On her last admission, she has also had phenytoin toxicity and marked rhabdomyolysis and acute kidney injury that has resolved. She is now on Keppra. PLAN: I have already consulted the honing machine try out setter as well as the physical and occupational therapist and she might probably require placement in a [place] [facility] facility. PRIYANKA BROWN MD DR: JOHNNY/julia JOB#: [id number] / [id number]
[2020-03-09 14:11] VITALS: BP 149/63
--- NOTE | 2020-03-09 17:06 | NUR ---
Pt in bed for most of day. Pt restless, fidgeting with covers/gown. Attempted OOB at times. Medicated PRN for anxiety x2. Pt ate meals and was pleasant and cooperative during cares. Pt ambulated to bathroom this shift.
[2020-03-09] MEDS: POTASSIUM CHLORIDE 20 MEQ TABLET.ER. PO SCH (17:15)
[2020-03-09 19:21] VITALS: BP 148/82
[2020-03-09] MEDS: MIRTAZAPINE 15 MG TABLET PO SCH (21:06)
--- NOTE | 2020-03-10 06:22 | NUR ---
Admit ordered placed.
[2020-03-10 06:26] VITALS: BP 154/84
[2020-03-10 06:38] LABS: CALCIUM 8.5 mg/dL (8.5-10.1); CREATININE 0.8 mg/dL (0.6-1.0); GFR 69.2; POTASSIUM 3.5 mmol/L (3.5-5.1)
[2020-03-10] MEDS: INSULIN LISPRO 300 UNITS/3 ML VIAL. SQ SCH ×3 (08:00→16:25)
--- NOTE | 2020-03-10 08:20 | PDOC2 ---
CARDIAC CONSULT DATE OF CONSULT Date Of Consult DATE: 03/10/20 TIME: 08:18 REASON FOR CONSULT Reason for Consult Elevated troponin REFERRING PHYSICIAN Referring Physician Dr. Lopez SOURCE Source: Chart review HPI History of Present Illness This is a 79 yo female who presented after being found down on the floor by son. Lives at home with elderly . Son checks on them frequently. Troponin noted to be mildly elevated, which prompted this consult. No reports of chest pain. HPI obtained from chart review as patient is presently somnolent. RN reports she had not slept since arrival to the unit until now. Has history of dementia and CVA and has been confused. PAST MEDICAL HISTORY Cardiovascular: hyperipidemia CENTRAL NERVOUS SYSTEM: CVA, Dementia, Seizure Musculoskeletal: Osteoarthritis PAST SURGICAL HISTORY Past Surgical History: No pertinent history FAMILY HISTORY Family History: Family History Unknown SOCIAL HISTORY Smoke: No ALCOHOL: none Drugs: None Lives: with Family CURRENT MEDICATIONS Current Medications Current Medications Sodium Chloride 1,000 ml @ 1,000 mls/hr 1X ONCE IV Last administered on 03/08/20at 12:02; Start 03/08/20 at 11:45; Stop 03/08/20 at 12:44; Status DC Aspirin (Nato Aspirin) 325 mg 1X ONCE PO Last administered on 03/08/20at 13:46; Start 03/08/20 at 14:00; Stop 03/08/20 at 14:01; Status DC Potassium Chloride (Klor-Con) 40 meq 1X ONCE PO Last administered on 03/08/20at 13:46; Start 03/08/20 at 14:00; Stop 03/08/20 at 14:01; Status DC Ondansetron HCl (Zofran) 4 mg PRN Q4HRS PRN IVP NAUSEA/VOMITING; Start 03/08/20 at 13:45; Stop 03/09/20 at 13:44; Status DC Acetaminophen (Tylenol) 650 mg PRN Q4HRS PRN PO FEVER > 100.3'F; Start 03/08/20 at 13:45; Stop 03/08/20 at 17:29; Status DC Acetaminophen (Tylenol) 650 mg PRN Q6HRS PRN PO MILD PAIN / TEMP > 100.3'F; Start 03/08/20 at 17:30 Amlodipine Besylate (Norvasc) 10 mg DAILY PO Last administered on 03/09/20at 07:50; Start 03/09/20 at 09:00 Lisinopril (Prinivil) 10 mg BID PO Last administered on 03/09/20at 21:06; Start 03/08/20 at 21:00 Lorazepam (Ativan) 0.5 mg PRN Q6HRS PRN PO ANXIETY / AGITATION, 1ST CHOIC Last administered on 03/09/20at 21:06; Start 03/08/20 at 17:30 Mirtazapine (Remeron) 15 mg QHS PO Last administered on 03/09/20 21:06; Start 03/08/20 at 21:00 Lactobacillus Rhamnosus (Culturelle) 1 cap BID PO Last administered on 03/09/20at 07:49; Start 03/08/20 at 21:00 Levetiracetam (Keppra) 1,000 mg BID PO Last administered on 03/09/20at 21:06; Start 03/08/20 at 21:00 Potassium Chloride (Klor-Con) 20 meq TIDWMEALS PO Last administered on 03/09/20at 17:15; Start 03/09/20 at 18:00 Insulin Human Lispro (HumaLOG) 0-5 UNITS TIDWMEALS SQ ; Start 03/09/20 at 08:00 Dextrose (Dextrose 50%-Water Syringe) 12.5 gm PRN Q15MIN PRN IV SEE COMMENTS; Start 03/08/20 at 17:30 Olanzapine (ZyPREXA) 2.5 mg PRN Q4HRS PRN PO ANXIETY, 2ND CHOICE Last administered on 03/09/20at 07:49; Start 03/08/20 at 19:00 Active Scripts Active Zyvox (Linezolid) 600 Mg Tablet 600 Mg PO BID 7 Days Reported Ativan (Lorazepam) 1 Mg Tablet 0.5 Mg PO PRN Q6HRS PRN Tylenol (Acetaminophen) 325 Mg Tablet 650 Mg PO PRN Q6HRS PRN Potassium Chloride 20 Meq Tablet.er 20 Meq PO TID Mirtazapine 15 Mg Tablet 15 Mg PO QHS Culturelle (Lactobacillus Rhamnosus Gg) 1 Each Capsule 1 Each PO BID Levetiracetam 1,000 Mg Tablet 1,000 Mg PO BID LAST DOSE GIVEN: DATE: TIME: NEXT DOSE DUE: DATE: TIME: Lisinopril 10 Mg Tablet 10 Mg PO BID Amlodipine Besylate 10 Mg Tablet 10 Mg PO DAILY ALLERGIES Allergies: Coded Allergies: No Known Drug Allergies (Unverified , 10/21/19) ROS Review of Systems unobtainable PHYSICAL EXAM General: Other (somnolent ) HEENT: Atraumatic, Mucous membr. moist/pink Lungs: Other (diminished bases) Heart: Regular rate Abdomen: Soft Extremities: No edema, Normal pulses Skin: No breakdown Psych/Mental Status: Other (unable to assess ) MUSCULOSKELETAL: Osteoarthritic changes both hands VITALS Vital Signs Vital Signs Date Time Temp Pulse Resp B/P (MAP) Pulse Ox O2 Delivery O2 Flow Rate FiO2 03/10/20 06:26 97.8 107 18 154/84 (107) 96 Room Air LABS LABS Laboratory Tests Test 03/08/20 12:00 03/08/20 13:00 03/08/20 16:55 03/08/20 19:45 White Blood Count 9.3 x10^3/uL (4.0-11.0) Red Blood Count 3.81 x10^6/uL (3.50-5.40) Hemoglobin 11.4 g/dL (12.0-15.5) Hematocrit 34.8 % (36.0-47.0) Mean Corpuscular Volume 91 fL (79-100) Mean Corpuscular Hemoglobin 30 pg (25-35) Mean Corpuscular Hemoglobin Concent 33 g/dL (31-37) Red Cell Distribution Width 14.2 % (11.5-14.5) Platelet Count 224 x10^3/uL (140-400) Neutrophils (%) (Auto) 92 % (31-73) Lymphocytes (%) (Auto) 3 % (24-48) Monocytes (%) (Auto) 6 % (0-9) Eosinophils (%) (Auto) 0 % (0-3) Basophils (%) (Auto) 0 % (0-3) Neutrophils # (Auto) 8.6 x10^3uL (1.8-7.7) Lymphocytes # (Auto) 0.2 x10^3/uL (1.0-4.8) Monocytes # (Auto) 0.5 x10^3/uL (0.0-1.1) Eosinophils # (Auto) 0.0 x10^3/uL (0.0-0.7) Basophils # (Auto) 0.0 x10^3/uL (0.0-0.2) Segmented Neutrophils % 90 % (35-66) Lymphocytes % 4 % (24-48) Monocytes % 6 % (0-10) Platelet Estimate Adequate (ADEQUATE) Prothrombin Time 10.3 SEC (9.4-11.4) Prothromb Time International Ratio 1.0 (0.9-1.1) Activated Partial Thromboplast Time 22 SEC (23-33) Sodium Level 142 mmol/L (136-145) Potassium Level 3.4 mmol/L (3.5-5.1) Chloride Level 105 mmol/L (98-107) Carbon Dioxide Level 27 mmol/L (21-32) Anion Gap 10 (6-14) Blood Urea Nitrogen 20 mg/dL (7-20) Creatinine 1.1 mg/dL (0.6-1.0) Estimated GFR (Cockcroft-Gault) 47.9 BUN/Creatinine Ratio 18 (6-20) Glucose Level 123 mg/dL (70-99) Lactic Acid Level 1.8 mmol/L (0.4-2.0) Calcium Level 8.9 mg/dL (8.5-10.1) Magnesium Level 2.0 mg/dL (1.8-2.4) Total Bilirubin 0.6 mg/dL (0.2-1.0) Aspartate Amino Transf (AST/SGOT) 25 U/L (15-37) Alanine Aminotransferase (ALT/SGPT) 16 U/L (14-59) Alkaline Phosphatase 92 U/L (46-116) Creatine Kinase 583 U/L (26-192) Creatine Kinase MB (Mass) 2.2 ng/mL (0.0-3.6) Creatine Kinase MB Relative Index 0.4 % (0-4) Troponin I Quantitative 0.133 ng/mL (0-0.055) 0.145 ng/mL (0-0.055) 0.144 ng/mL (0-0.055) Total Protein 6.9 g/dL (6.4-8.2) Albumin 3.4 g/dL (3.4-5.0) Albumin/Globulin Ratio 1.0 (1.0-1.7) Urine Collection Type U cath Urine Color Yellow Urine Clarity Clear Urine pH 5.5 Urine Specific [place] 1.020 Urine Protein Neg (NEG-TRACE) Urine Glucose (UA) Neg mg/dL (NEG) Urine Ketones (Stick) 15 mg/dL (NEG) Urine Blood Trace (NEG) Urine Nitrite Neg (NEG) Urine Bilirubin Neg (NEG) Urine Urobilinogen Dipstick 0.2 mg/dL (0.2 mg/dL) Urine Leukocyte Esterase Neg (NEG) Urine RBC 0 /HPF (0-2) Urine WBC Occ /HPF (0-4) Urine Squamous Epithelial Cells Few /LPF Urine Bacteria 0 /HPF (0-FEW) Urine Hyaline Casts Occ /HPF Urine Mucus Slight /LPF Test 03/08/20 21:27 03/09/20 05:00 03/09/20 11:21 03/09/20 16:35 Glucose (Fingerstick) 134 mg/dL (70-99) 105 mg/dL (70-99) 94 mg/dL (70-99) Sodium Level 140 mmol/L (136-145) Potassium Level 3.7 mmol/L (3.5-5.1) Chloride Level 103 mmol/L (98-107) Carbon Dioxide Level 27 mmol/L (21-32) Anion Gap 10 (6-14) Blood Urea Nitrogen 22 mg/dL (7-20) Creatinine 1.0 mg/dL (0.6-1.0) Estimated GFR (Cockcroft-Gault) 53.5 BUN/Creatinine Ratio 22 (6-20) Glucose Level 73 mg/dL (70-99) Calcium Level 8.2 mg/dL (8.5-10.1) Total Bilirubin 0.5 mg/dL (0.2-1.0) Aspartate Amino Transf (AST/SGOT) 30 U/L (15-37) Alanine Aminotransferase (ALT/SGPT) 19 U/L (14-59) Alkaline Phosphatase 83 U/L (46-116) Total Protein 6.4 g/dL (6.4-8.2) Albumin 3.1 g/dL (3.4-5.0) Albumin/Globulin Ratio 0.9 (1.0-1.7) Triglycerides Level 51 mg/dL (0-150) Cholesterol Level 183 mg/dL (0-200) LDL Cholesterol, Calculated 93 mg/dL (0-100) VLDL Cholesterol, Calculated 10 mg/dL (0-40) Non-HDL Cholesterol Calculated 103 mg/dL (0-129) HDL Cholesterol 80 mg/dL (40-60) Cholesterol/HDL Ratio 2.0 Test 03/09/20 22:20 03/10/20 06:10 03/10/20 07:25 Glucose (Fingerstick) 87 mg/dL (70-99) 85 mg/dL (70-99) Sodium Level 139 mmol/L (136-145) Potassium Level 3.5 mmol/L (3.5-5.1) Chloride Level 101 mmol/L (98-107) Carbon Dioxide Level 29 mmol/L (21-32) Anion Gap 9 (6-14) Blood Urea Nitrogen 17 mg/dL (7-20) Creatinine 0.8 mg/dL (0.6-1.0) Estimated GFR (Cockcroft-Gault) 69.2 Glucose Level 82 mg/dL (70-99) Calcium Level 8.5 mg/dL (8.5-10.1) Creatine Kinase 347 U/L (26-192) ASSESSMENT/PLAN Assessment/Plan 1. Weakness, fall; details unknown. Was down for at least 3 hrs. No arrhythmias noted on tele. Orthos negative 2. Mild troponin elevation; peak 0.145. Most probably type II, demand ischemia. CP free. 3. Elevated CK, mild Rhabdo. improved 4. Hyperlipidemia; LDL 93 5. Hypertension; on lisinopril 6. H/o CVA 7. Dementia Recommendations Echo to assess LV systolic function Add ASA, statin Could consider further ischemic evaluation on an outpatient basis. Supportive care Further pending echo CHARLOTTE AGUIRRE APRN Mar 10, 2020 08:20
[2020-03-10] MEDS: LACTOBACILLUS RHAMNOSUS GG 1 CAPSULE. PO SCH ×2 (08:38→20:58)
[2020-03-10] MEDS: LISINOPRIL 10 MG TABLET PO SCH ×2 (08:38→20:58)
[2020-03-10] MEDS: levETIRAcetam 500 MG TABLET PO SCH ×2 (08:38→20:58)
[2020-03-10] MEDS: amLODIPine BESYLATE 10 MG TABLET PO SCH (08:38)
[2020-03-10] MEDS: POTASSIUM CHLORIDE 20 MEQ TABLET.ER. PO SCH ×3 (08:38→17:39)
[2020-03-10] MEDS: ASPIRIN ENTERIC COATED 81 MG TABLET.DR. PO SCH (08:39)
[2020-03-10 11:09] VITALS: BP 105/68
[2020-03-10 15:23] VITALS: BP 110/64
--- NOTE | 2020-03-10 15:37 | NUR ---
NURSING NOTE PT WAS IN HER BED THIS AM UPON ASSESSMENT AND MEDICATION ADMINISTRATION. PT IS ALERT TO SELF THIS AM. PT TAKES HER MEDS WHOLE WITH WATER BUT DOES NEED EXTRA ENCOURAGEMENT. PT WAS ABLE TO EAT HER MEALS WITH SET UP ONLY. PT WORKED WITH PT/OT TODAY AND GOT UP TO CHAIR. PT DOES NEED PERSONAL ALARM WHEN IN BED OR CHAIR. SPOKE WITH PT SON, PT SON STATES THAT PT WAS PULLED FROM [facility] February BECAUSE HE WANTED HER TO SPEND TIME WITH HER WHO IS 91 AND LIVING AT HOME. PT SON STATES HE FOUND THEM BOTH ON THE FLOOR WHEN HE WENT TO CHECK ON THEM. PT SON STATES HER IS AT WITH A BLOOD CLOT AND SHE IS UNABLE TO RETURN HOME WITH HIM. PT SON WOULD LIKE PLACEMENT AT FACILITY FIRST CHOICE BEING [facility], SECOND CHOICE BEING [facility]. INFORMATION GIVEN TO CASE MANAGEMENT. PT GOT ECHO TODAY, PT WAS STARTED ON DAILY ASA AND ATORVASTATIN PER CHARLOTTE. PT HAS HAD A FEW HALLUCINATIONS TODAY, STATING THAT SHE NEEDS TO GO CHECK ON THE ROAST IN THE OVEN. PT ALSO HAD EPISODE WHERE SHE WAS ATTEMPTING TO GET UP STATING THAT SHE WAS GOING TO GO CHECK ON HER . PT REORIENTED TO TIME AND PLACE. WILL CONTINUE TO MONITOR. ROHAN REDDY.
--- NOTE | 2020-03-10 15:38 | PN ---
DATE: 03/10/2020 SUBJECTIVE: The patient is resting, slightly propped up, sleeping comfortably, in no distress. She apparently has not been sleeping for 2 days and slept well last night. She did very well with the physical therapy, has been able to walk with a walker; however, her son wanted her to be placed in a [facility] and application were submitted to some [facility] around here and hopefully tomorrow she can be discharged. On questioning her, denied any complaint. Nursing staff did not voice any concern. PHYSICAL EXAMINATION: GENERAL: When I examined her, she was somewhat pale, but no jaundice, cyanosis or thyromegaly. No jugular venous distention. No limb edema. VITAL SIGNS: Her heart rate was 96, blood pressure was 105/68, temperature was 97.9, respiratory rate was 18 and oxygen saturation was 96% on room air. HEAD, EYES, EARS, NOSE AND THROAT: Showed normocephalic, atraumatic. NECK: Supple. HEART: Showed normal first and second heart sounds. No gallop, rub or murmur. CHEST: Clear to auscultation. No crepitation or rhonchi. ABDOMEN: Distended, soft, nontender. No guarding or rigidity. No organomegaly. All hernial orifice intact. Bowel sounds normal. NEUROLOGIC: She is demented, but without any obvious lateralizing sign. She is actually doing much, much better than last time. She is now able to walk with a walker, although she continued to be confused and at times hallucinating. Her intake over the last 24 hours was 1800, no output was recorded. LABORATORY DATA: Showed her white cell count to be 9300, hemoglobin 11, hematocrit 34, MCV 91, and platelet count 224,000. Her serum sodium was 139, potassium 3.5, chloride 101, bicarbonate 29, anion gap of 9, BUN 17, creatinine 0.8, estimated GFR was 69 mL per minute. Her glucose was 82, calcium was 8.5 and CK was 347. She was seen by the Cardiology team and they did recommend an echo to assess left ventricular systolic function. Continue with aspirin and statin and she has multiple other medical problems including hypertension, hyperlipidemia, history of CVA and dementia. PRIYANKA BROWN MD DR: JOHNNY/julia JOB#: [id number] / [id number]
--- NOTE | 2020-03-10 16:15 | CARD ---
MR#: [id number] Date of Study: 03/10/2020 Ordering Physician: CONNOR ADAMSON, Referring Physician: CONNOR ADAMSON Tech: Ginger Jerry RDCS APPROVED REPORT EXAM: Two-dimensional and M-mode echocardiogram with Doppler and color Doppler. INDICATION Elevated Troponin 2D DIMENSIONS RVDd3.1 (2.9-3.5cm)Left Atrium(2D)2.7 (1.6-4.0cm) IVSd0.8 (0.7-1.1cm)Aortic Root(2D)2.4 (2.0-3.7cm) LVDd3.9 (3.9-5.9cm)PWd0.8 (0.7-1.1cm) LVDs2.8 (2.5-4.0cm)FS (%) 28.6 % SV36.3 mlLVEF(%)55.7 (>50%) Aortic Valve AoV Peak Eduardo.108.7cm/sAoV VTI17.9cm AO Peak GR.4.7mmHgAO Mean GR.3mmHg DORIE (VTI)1.99cm2 Mitral Valve MV E Drergfus38.4cm/sMV DECEL DSCN186mk MV A Sbalcvfh54.6cm/sE/A Ratio1.2 Tricuspid Valve TR P. Jowzeajc930mt/sRAP JWQNKEWR1zkNd TR Peak Gr.75soMiYNAT82hlSj LEFT VENTRICLE The left ventricle is normal size. There is normal left ventricular wall thickness. The left ventricu lar systolic function is normal. The Ejection Fraction is 55-60%. There is normal LV segmental wall m otion. RIGHT VENTRICLE The right ventricle is normal size. The right ventricular systolic function is normal. ATRIA The left atrium size is normal. The right atrium size is normal. The interatrial septum is intact wit h no evidence for an atrial septal defect or patent foramen ovale as noted on 2-D or Doppler imaging. AORTIC VALVE The aortic valve is calcified but opens well. Doppler and Color Flow revealed no significant aortic r egurgitation. There is no significant aortic valvular stenosis. MITRAL VALVE The mitral valve is normal in structure and function. There is no evidence of mitral valve prolapse. There is no mitral valve stenosis. Doppler and Color Flow revealed no mitral valve regurgitation note d. TRICUSPID VALVE The tricuspid valve is normal in structure and function. Doppler and Color Flow revealed mild tricusp id regurgitation. The PA pressure was estimated at 31 mmHg. There is no tricuspid valve stenosis. PULMONIC VALVE The pulmonic valve is not well visualized. Doppler and Color Flow revealed no pulmonic valvular regur gitation. There is no pulmonic valvular stenosis. GREAT VESSELS The aortic root is normal in size. The ascending aorta is not well seen. The IVC is normal in size an d collapses >50% with inspiration. PERICARDIAL EFFUSION There is no evidence of significant pericardial effusion. Critical Notification Critical Value: No <Conclusion> The left ventricular systolic function is normal. The Ejection Fraction is 55-60%. There is normal LV segmental wall motion. Doppler and Color Flow revealed mild tricuspid regurgitation. The PA pressure was estimated at 31 mmHg. There is no evidence of significant pericardial effusion. Signed by : Connor Adamson, Electronically Approved : 03/10/2020 16:15:09
[2020-03-10 19:35] VITALS: BP 117/68
[2020-03-10] MEDS: LORazepam 0.5 MG TABLET PO PRN (20:58)
[2020-03-10] MEDS: MIRTAZAPINE 15 MG TABLET PO SCH (20:58)
[2020-03-10] MEDS: OLANZapine 2.5 MG TABLET PO PRN (20:58)
[2020-03-10] MEDS: ATORVASTATIN CALCIUM 20 MG TABLET PO SCH (20:58)
[2020-03-10 23:02] VITALS: BP 166/75
[2020-03-11 05:21] VITALS: BP 147/78
--- NOTE | 2020-03-11 07:52 | PDOC ---
CARDIO Progress Notes Date & Time Date of Service DATE: 03/11/20 TIME: 07:46 Time of Evaluation 07:46 Subjective Notes No chest pain, dizziness, diaphoresis, or nausea/vomiting. Vitals Vitals Vital Signs Date Time Temp Pulse Resp B/P (MAP) Pulse Ox O2 Delivery O2 Flow Rate FiO2 03/11/20 05:21 97.6 85 20 147/78 (101) 94 Room Air Weight Weight [ ] Input and Output I.O. Intake and Output 03/11/20 07:00 Intake Total 2300 ml Balance 2300 ml Intake Oral 2300 ml # Voids 7 Laboratory Labs Laboratory Tests Test 03/09/20 11:21 03/09/20 16:35 03/09/20 22:20 03/10/20 06:10 Glucose (Fingerstick) 105 mg/dL (70-99) 94 mg/dL (70-99) 87 mg/dL (70-99) Sodium Level 139 mmol/L (136-145) Potassium Level 3.5 mmol/L (3.5-5.1) Chloride Level 101 mmol/L (98-107) Carbon Dioxide Level 29 mmol/L (21-32) Anion Gap 9 (6-14) Blood Urea Nitrogen 17 mg/dL (7-20) Creatinine 0.8 mg/dL (0.6-1.0) Estimated GFR (Cockcroft-Gault) 69.2 Glucose Level 82 mg/dL (70-99) Calcium Level 8.5 mg/dL (8.5-10.1) Creatine Kinase 347 U/L (26-192) Test 03/10/20 07:25 03/10/20 11:23 03/10/20 16:16 03/10/20 19:46 Glucose (Fingerstick) 85 mg/dL (70-99) 114 mg/dL (70-99) 125 mg/dL (70-99) 129 mg/dL (70-99) Test 03/11/20 07:19 Glucose (Fingerstick) 81 mg/dL (70-99) Physical Exams HEENT: Neck Supple W Full Motion Chest: Symmetric Lungs: Clear to Auscultation Heart: S1S2, RRR Abdomen: Soft N/T Extremities: No Edema Neurology: alert, follow commands Assessment Assessment 1. Weakness, fall; details unknown. Was down for at least 3 hrs. Orthos negative. No significant bradyarrhythmias or pauses noted on tele. Lots of artifact on tele. Few brief bursts of possible PAFIB noted on tele. This is difficult to ascertain as she has so much artifact on tele. 2. Mild troponin elevation; peak 0.145. Most probably type II, demand ischemia. CP free. Echo with preserved LV systolic function 3. Elevated CK, mild Rhabdo. improved 4. Hyperlipidemia; LDL 93 5. Hypertension; on lisinopril 6. H/o CVA 7. Dementia Recommendations Continue ASA, statin therapy Will add low-dose metoprolol Can arrange event monitor if family agreeable and feels that she would comply Poor candidate for OAC given comorbidities and fall risk Supportive care Okay to discharge to facility from a CV standpoint. CHARLOTTE AGUIRRE APRN Mar 11, 2020 07:52
[2020-03-11] MEDS: INSULIN LISPRO 300 UNITS/3 ML VIAL. SQ SCH ×3 (08:00→17:00)
[2020-03-11] MEDS: POTASSIUM CHLORIDE 20 MEQ TABLET.ER. PO SCH ×3 (08:11→17:03)
[2020-03-11] MEDS: LACTOBACILLUS RHAMNOSUS GG 1 CAPSULE. PO SCH ×2 (08:11→20:08)
[2020-03-11] MEDS: ASPIRIN ENTERIC COATED 81 MG TABLET.DR. PO SCH (08:12)
[2020-03-11] MEDS: LISINOPRIL 10 MG TABLET PO SCH ×2 (08:12→20:07)
[2020-03-11] MEDS: levETIRAcetam 500 MG TABLET PO SCH ×2 (08:13→20:07)
[2020-03-11] MEDS: amLODIPine BESYLATE 10 MG TABLET PO SCH (08:13)
--- NOTE | 2020-03-11 09:53 | NUR ---
NURSING NOTE CODE STATUS SPOKE WITH PT SON YAMIL ABOUT PT CODE STATUS AND IF HE WANTED FURTHER MONITORING OUTPATIENT HEART MONITOR. PT SON STATES SHE IS NOT TO BE RESUSCITATED AND NO FURTHER MONITORING NEEDED. PT SON STATES HE HAS DPOA PAPERWORK AND WILL BRING IT IN, AND SHE IS TO BE A DNR. WILL SPEAK WITH CASE MANAGEMENT AND NOTIFY PHYSICIAN. ROHAN REDDY.
[2020-03-11] MEDS: METOPROLOL TART IMMED RELEASE 25 MG TABLET PO SCH ×2 (10:06→20:08)
[2020-03-11 11:00] VITALS: BP 112/71
--- NOTE | 2020-03-11 13:24 | PN ---
DATE: 03/11/2020 SUBJECTIVE: The patient is resting, slightly propped up in bed, in no apparent distress. She is awake, alert, continued to be somewhat confused, but otherwise hemodynamically stable. Nursing staff did not voice any concerns that she had an eventful night. PHYSICAL EXAMINATION: GENERAL: When I examined her, she looked somewhat pale, but no jaundice, cyanosis or thyromegaly. No jugular venous distention. No limb edema. VITAL SIGNS: Her heart rate today was 82, blood pressure was 112/71, temperature was 97.5, respiratory rate was 18 and oxygen saturation was 96% on room air. HEAD, EYES, EARS, NOSE AND THROAT: Showed normocephalic, atraumatic. NECK: Supple. HEART: Showed normal first and second heart sounds. No gallop or murmur. CHEST: Clear to auscultation. No crepitation or rhonchi. ABDOMEN: Distended, soft, nontender. NEUROLOGIC: She is awake, alert. All her cranial nerves intact. She moves extremities without difficulty. She is able to ambulate with a walker with standby assist. Her intake over the last 24 hours was 970, no output was recorded. LABORATORY DATA: Her most recent lab work showed her serum sodium was 139, potassium 3.5, chloride 101, bicarbonate 29, anion gap of 9, BUN 17, creatinine 0.8, estimated GFR was 69 mL per minute. Her glucose was 82, calcium was 8.5. CK was 347. White cell count was 9300, hemoglobin 11, hematocrit 34, MCV 91, and platelet count 224,000. ASSESSMENT: 1. Weakness and falls. The patient was found on the floor and her son stated that she has been there for almost 3 hours. There was no evidence of any postural hypotension and the telemetry showed no evidence of any cely or tachyarrhythmias. 2. She has mild troponin elevation, peaked up to 0.145, likely type 2 demand ischemia. Her echocardiogram showed preserved left ventricular systolic function. She has hyperlipidemia, hypertension, well controlled. 3. History of cerebrovascular accident, dementia and seizure disorder. Apparently, the patient is accepted at [facility] and she will be discharged there tomorrow. All the paperwork is ready for her to be discharged tomorrow. PRIYANKA BROWN MD DR: JOHNNY/julia JOB#: [id number] / [id number]
--- NOTE | 2020-03-11 15:19 | NUR ---
NURSING NOTE PT IS CURRENTLY UP IN CHAIR, PT PLAN TO DC TOMORROW TO [facility]. PT IS CALM AND COOPERATIVE AT THIS TIME. PT GOT SHOWER TODAY AND LINEN CHANGE. PT DENIES ANY PAIN. PT DOES VOICE CONCERN ABOUT HER , PT SPOKE WITH HER SON. PT SON BROUGHT IN PAPERWORK FOR PT. CASE MANAGEMENT FOLLOWING PT. NO COMPLICATIONS. ROHAN REDDY.
[2020-03-11 15:34] VITALS: BP 104/62
[2020-03-11] MEDS: MIRTAZAPINE 15 MG TABLET PO SCH (20:07)
[2020-03-11] MEDS: LORazepam 0.5 MG TABLET PO PRN (20:07)
[2020-03-11] MEDS: ATORVASTATIN CALCIUM 20 MG TABLET PO SCH (20:08)
[2020-03-11] MEDS: OLANZapine 2.5 MG TABLET PO PRN (20:08)
[2020-03-11 20:38] VITALS: BP 106/69
[2020-03-12] MEDS: LACTOBACILLUS RHAMNOSUS GG 1 CAPSULE. PO SCH (08:18)
[2020-03-12] MEDS: levETIRAcetam 500 MG TABLET PO SCH (08:19)
[2020-03-12] MEDS: ASPIRIN ENTERIC COATED 81 MG TABLET.DR. PO SCH (08:19)
[2020-03-12] MEDS: METOPROLOL TART IMMED RELEASE 25 MG TABLET PO SCH (08:20)
[2020-03-12] MEDS: amLODIPine BESYLATE 10 MG TABLET PO SCH (08:20)
[2020-03-12] MEDS: LISINOPRIL 10 MG TABLET PO SCH (08:21)
[2020-03-12] MEDS: POTASSIUM CHLORIDE 20 MEQ TABLET.ER. PO SCH (08:21)
[2020-03-12] MEDS: INSULIN LISPRO 300 UNITS/3 ML VIAL. SQ SCH ×2 (08:25→12:00)
--- NOTE | 2020-03-12 08:53 | DS ---
DATE OF DISCHARGE: 03/12/2020 ATTENDING PHYSICIAN: Dr. Lopez FINAL DISCHARGE DIAGNOSES: 1. Generalized debilitation. 2. Frequent falls. 3. Profound dementia. 4. Seizure disorder. 5. Noncompliance of meds. 6. Essential hypertension. 7. Type 2 diabetes. 8. Osteoarthritis. 9. Generalized debilitation. 10. Elevated troponin level as incidental finding. HISTORY OF PRESENT ILLNESS: This is a 79-year-old female admitted from home. She and her 91-year-old were found both down. was also hospitalized. She has frequent falls, no acute fracture. She had an elevated troponin on admission. Cardiology consultation was obtained. Family wanted no further workup. PHYSICAL EXAMINATION: Please see the dictated note. PERTINENT LABORATORY AND X-RAY STUDIES: Her hemoglobin was 11.4 g/dL with white count of 9300. Nonfasting blood sugar was well controlled in the low 100s. The obligatory CT of the head showed no evidence of fractures or bleeds some bulging disks identified. No acute pathology identified. Chest x-ray showed disorganized pulmonary markings without any regions of consolidation. COURSE IN THE HOSPITAL: The patient was admitted. She was monitored. Diet was advanced. Physical therapy asked to see her. Cardiology services were called to see her regarding further workup and for monitoring. The son is the power of estate planning attorney requested no heroics. She was made a DNR and no further testing identified. She had no further symptoms. No chest pain or shortness of breath. Some home meds and blood pressure meds were continued. Clearly, this patient failed and could not take care of herself. She needs to be at higher level of care. Arrangements were then made on the fourth hospital day for her to go to a [facility] for continued care. Her discharge meds have been simplified. They include the following: She should continue her amlodipine 10 mg daily, Keppra 1000 mg b.i.d., lisinopril 10 mg daily, lorazepam and Remeron 15 mg at bedtime. We held her Zyvox potassium and lactobacillus. She is a DNR per advanced directives. She was discharged from our hospital in stable condition with explicit instructions and followup care. TOTAL DISCHARGE TIME SPENT: 39 minutes. ISH CROSS MD DR: OSCAR/julia JOB#: [id number] / [id number] PRIYANKA Roberts MD
[2020-03-12 09:29] VITALS: BP 101/63
--- NOTE | 2020-03-12 13:49 | NUR ---
NURSING NOTE DISCHARGE PT DISCHARGED TO [facility] VIA [facility], ACCOMPANIED BY TRANSPORT TEAM. WRITTEN AND VERBAL DISCHARGE INSTRUCTIONS GIVEN TO PT AND PACKET FAXED TO [facility], REPORT CALLED. YAMIL (SON) NOTIFIED OF DISCHARGE. NO COMPLICATIONS. ROHAN REDDY.
== END 2020-03-12 13:52 | DRG 558 ==
LOC: ER 11:26 → 1 SOUTH 13:40
PROVIDERS: ADMIT Internal Medicine; ATTEND Internal Medicine
DX: M62.82 Rhabdomyolysis (principal); I24.8 Other forms of acute ischemic heart disease; E87.6 Hypokalemia; I10 Essential (primary) hypertension; E78.5 Hyperlipidemia, unspecified; E11.9 Type 2 diabetes mellitus without complications; G40.909 Epilepsy, unspecified, not intractable, without status epilepticus; D64.9 Anemia, unspecified; F03.90 Unspecified dementia, unspecified severity, without behavioral disturbance, psychotic disturbance, mood disturbance, and anxiety; W18.39XA Other fall on same level, initial encounter; M15.9 Polyosteoarthritis, unspecified; Z66 Do not resuscitate; R29.6 Repeated falls; Z86.73 Personal history of transient ischemic attack (TIA), and cerebral infarction without residual deficits; Z79.899 Other long term (current) drug therapy; Z91.14 Patient's other noncompliance with medication regimen; Y93.89 Activity, other specified; Y92.89 Other specified places as the place of occurrence of the external cause; Y99.8 Other external cause status
CPT/HCPCS: 36415; 70450; 71045; 72125; 80048; 80053; 80061; 80177; 81001; 82550; 82553; 82947; 83605; 83735; 84484; 85007; 85025; 85610; 85730; 93005; 93306; 96360; J1815; P9612; 97110; 97116; 97530; 97535; 99291-25; J7030

== ENCOUNTER 2020-07-14 15:08 | Emergency (ER) | payer MEDICARE, OTHER ==
[~2020-07-14] VITALS: Ht 175.3 cm; Wt 56.8 kg
[~2020-07-14 15:08] MED LIST changes: +POTA-163 PO; -POTA20TA83 PO
--- NOTE | 2020-07-14 15:40 | RAD ---
CT CODE STROKE HEAD WO History:Slurred speech, drooling, code stroke Comparison: March 08, 2020 Technique: Noncontrast CT imaging was performed of the head. Exposure: One or more of the following individualized dose reduction techniques were utilized for this examination: 1. Automated exposure control 2. Adjustment of the mA and/or kV according to patient size 3. Use of iterative reconstruction technique. Findings: No acute extra-axial or parenchymal hemorrhage is identified. There is no significant intra-axial mass effect, midline shift, or extra-axial fluid collection. The austin-white differentiation of the major vascular territories is preserved. Ventricular size is stable, mild prominence of bilateral temporal horns greater on the right unchanged. There is mild supratentorial involutional change. There is mild patchy ill-defined low-density of the supratentorial parenchyma bilaterally also similar. The mastoid air cells and the visualized paranasal sinuses are aerated. No acute calvarial abnormality is identified. There is atherosclerotic calcification of the bilateral carotid siphons and intradural vertebral arteries. Focus of nonspecific, nonexpansile bone lysis of the right parietal calvarium is stable. Impression: 1. No acute intracranial hemorrhage is identified. Critical results were discussed with Dr. Cruz at 07/14/2020 3:34 PM. Electronically signed by: Jaron Ibanez MD (07/14/2020 3:37 PM) [place] [id number]
[2020-07-14 16:10] LABS: BASO # 0.1 x10^3/uL (0.0-0.2); BASO % 1 % (0-3); EOS # 0.2 x10^3/uL (0.0-0.7); EOS % 4 % (0-3); HEMATOCRIT 31.9 % (36.0-47.0); HEMOGLOBIN 10.6 g/dL (12.0-15.5); LYMPH # 1.2 x10^3/uL (1.0-4.8); LYMPH % 23 % (24-48); MEAN CORPUSCULAR HEMOGLOBIN 30 pg (25-35); MEAN CORPUSCULAR HGB CONC 33 g/dL (31-37); MEAN CORPUSCULAR VOLUME 90 fL (79-100); MONO # 0.7 x10^3/uL (0.0-1.1); MONO % 13 % (0-9); NEUT % 60 % (31-73); PLATELET COUNT 223 x10^3/uL (140-400); RED BLOOD COUNT 3.53 x10^6/uL (3.50-5.40); RED CELL DISTRIBUTION WIDTH 14.5 % (11.5-14.5); WHITE BLOOD COUNT 5.1 x10^3/uL (4.0-11.0)
--- NOTE | 2020-07-14 16:12 | EKG ---
[address] [address] Test Date: 2020-07-14 Test Time: 16:01:15 Pat Name: GRABIEL DUKES Department: Room: Gender: F [employer]: : 1940 Requested By: FLORY SMITH Order Number: [id number] Reading MD: Measurements Intervals [place] Rate: 69 P: 74 WA: 196 QRS: 66 QRSD: 88 T: 66 QT: 422 QTc: 454 Interpretive Statements SINUS RHYTHM NORMAL ECG RI6.02 No previous ECG available for comparison
[2020-07-14 16:16] LABS: CALCIUM 8.4 mg/dL (8.5-10.1); GFR 53.5; POTASSIUM 3.9 mmol/L (3.5-5.1)
[2020-07-14 16:28] LABS: ALBUMIN 3.1 g/dL (3.4-5.0); ALBUMIN/GLOBULIN RATIO 0.8 (1.0-1.7); MAGNESIUM 2.3 mg/dL (1.8-2.4); TOTAL BILIRUBIN 0.3 mg/dL (0.2-1.0); TOTAL PROTEIN 6.9 g/dL (6.4-8.2)
[2020-07-14 17:01] LABS: BILIRUBIN,URINE NEG (NEG); CLARITY,URINE CLEAR; COLOR,URINE YELLOW; GLUCOSE,URINE NEG (NEG); NITRITE,URINE NEG (NEG); RBC,URINE 0 /HPF (0-2); UROBILINOGEN,URINE 0.2 mg/dL (0.2 mg/dL)
[2020-07-14 17:02] LABS: BACTERIA,URINE 0 /HPF (0-FEW); SQUAMOUS EPITHELIAL CELL,UR OCC /LPF
[2020-07-14] MEDS ORDERED: hydrALAZINE 20 MG/ML VIAL. IV ONE (17:45)
[2020-07-14 18:09] VITALS: BP 127/62
--- NOTE | 2020-07-14 18:17 | PHYS DOC ---
Past History Past Medical History: CVA, Diabetes, Hypertension, Seizure, Other Additional Past Medical Histor: HLD Past Surgical History: No Surgical History Smoking: Non-smoker Alcohol Use: None Drug Use: None General Adult EDM: Chief Complaint: NEURO SYMPTOMS/DEFICITS HPI: HPI: Patient is a 79-year-old female who was brought here from a [place] [facility] due to an episode of confusion with drooling from her mouth lasted not very long. When EMS arrived, she was normal denies any complaint. Patient denies any headache, no neck pain, no abdominal pain, no nausea vomiting. Patient says she wears dentures, has history of seizure disorder, on anti-seizure medication. [place] [facility] staff reportED that they WERE not sure if she had a seizure today. Patient denies any cough or fever. Patient is DNR. Review of Systems: Review of Systems: Constitutional: Denies fever or chills Eyes: Denies change in visual acuity HENT: Denies nasal congestion or sore throat Respiratory: Denies cough or shortness of breath Cardiovascular: Denies chest pain or edema GI: Denies abdominal pain, nausea, vomiting, bloody stools or diarrhea : Denies dysuria Musculoskeletal: Denies back pain or joint pain Integument: Denies rash Neurologic: Denies headache, focal weakness or sensory changes Endocrine: Denies polyuria or polydipsia Lymphatic: Denies swollen glands Psychiatric: Denies depression or anxiety Heart Score: Risk Factors: Risk Factors: DM, Current or recent (<one month) smoker, HTN, HLP, family history of CAD, obesity. Risk Scores: Score 0 - 3: 2.5% MACE over next 6 weeks - Discharge Home Score 4 - 6: 20.3% MACE over next 6 weeks - Admit for Clinical Observation Score 7 - 10: 72.7% MACE over next 6 weeks - Early Invasive Strategies Current Medications: Current Meds: Current Medications Medications (Trade) Dose Ordered Sig/Ajay Start Time Stop Time Status Last Admin Dose Admin Hydralazine HCl (Apresoline) 10 mg 1X ONCE 07/14/20 17:45 07/14/20 17:53 DC Allergies: Allergies: Allergies Coded Allergies Type Severity Reaction Last Updated Verified No Known Drug Allergies 10/21/19 No Physical Exam: PE: Constitutional: Well developed, well nourished, no acute distress, non-toxic appearance. [] HENT: Normocephalic, atraumatic, bilateral external ears normal, oropharynx moist, no oral exudates, nose normal. [] Eyes: PERRLA, EOMI, conjunctiva normal, no discharge. [] Neck: Normal range of motion, no tenderness, supple, no stridor. [] Cardiovascular:Heart rate regular rhythm, no murmur [] Lungs & Thorax: Bilateral breath sounds clear to auscultation [] Abdomen: Bowel sounds normal, soft, no tenderness, no masses, no pulsatile masses. [] Skin: Warm, dry, no erythema, no rash. [] Back: No tenderness, no CVA tenderness. [] Extremities: No tenderness, no cyanosis, no clubbing, ROM intact, no edema. [] Neurologic: Alert and oriented X 3, normal motor function, normal sensory function, no focal deficits noted. [] Psychologic: Affect normal, judgement normal, mood normal. [] Current Patient Data: Labs: Laboratory Tests Test 07/14/20 15:45 07/14/20 16:25 White Blood Count 5.1 x10^3/uL (4.0-11.0) Red Blood Count 3.53 x10^6/uL (3.50-5.40) Hemoglobin 10.6 g/dL (12.0-15.5) L Hematocrit 31.9 % (36.0-47.0) L Mean Corpuscular Volume 90 fL (79-100) Mean Corpuscular Hemoglobin 30 pg (25-35) Mean Corpuscular Hemoglobin Concent 33 g/dL (31-37) Red Cell Distribution Width 14.5 % (11.5-14.5) Platelet Count 223 x10^3/uL (140-400) Neutrophils (%) (Auto) 60 % (31-73) Lymphocytes (%) (Auto) 23 % (24-48) L Monocytes (%) (Auto) 13 % (0-9) H Eosinophils (%) (Auto) 4 % (0-3) H Basophils (%) (Auto) 1 % (0-3) Neutrophils # (Auto) 3.0 x10^3uL (1.8-7.7) Lymphocytes # (Auto) 1.2 x10^3/uL (1.0-4.8) Monocytes # (Auto) 0.7 x10^3/uL (0.0-1.1) Eosinophils # (Auto) 0.2 x10^3/uL (0.0-0.7) Basophils # (Auto) 0.1 x10^3/uL (0.0-0.2) Prothrombin Time 9.7 SEC (9.4-11.4) Prothrombin Time INR 0.9 (0.9-1.1) Activated Partial Thromboplast Time 21 SEC (23-33) L Sodium Level 138 mmol/L (136-145) Potassium Level 3.9 mmol/L (3.5-5.1) Chloride Level 102 mmol/L (98-107) Carbon Dioxide Level 28 mmol/L (21-32) Anion Gap 8 (6-14) Blood Urea Nitrogen 24 mg/dL (7-20) H Creatinine 1.0 mg/dL (0.6-1.0) Estimated GFR (Cockcroft-Gault) 53.5 BUN/Creatinine Ratio 24 (6-20) H Glucose Level 112 mg/dL (70-99) H Calcium Level 8.4 mg/dL (8.5-10.1) L Magnesium Level 2.3 mg/dL (1.8-2.4) Total Bilirubin 0.3 mg/dL (0.2-1.0) Aspartate Amino Transferase (AST) 18 U/L (15-37) Alanine Aminotransferase (ALT) 19 U/L (14-59) Alkaline Phosphatase 84 U/L (46-116) Troponin I Quantitative < 0.017 ng/mL (0-0.055) DN-Jai-C-Type Natriuretic Peptide 250 pg/mL (0-449) Total Protein 6.9 g/dL (6.4-8.2) Albumin 3.1 g/dL (3.4-5.0) L Albumin/Globulin Ratio 0.8 (1.0-1.7) L Urine Collection Type Unknown Urine Color Yellow Urine Clarity Clear Urine pH 6.0 Urine Specific Rigby 1.015 Urine Protein Neg (NEG-TRACE) Urine Glucose (UA) Neg mg/dL (NEG) Urine Ketones (Stick) Neg mg/dL (NEG) Urine Blood Neg (NEG) Urine Nitrite Neg (NEG) Urine Bilirubin Neg (NEG) Urine Urobilinogen Dipstick 0.2 mg/dL (0.2 mg/dL) Urine Leukocyte Esterase Trace (NEG) Urine RBC 0 /HPF (0-2) Urine WBC 1-4 /HPF (0-4) Urine Squamous Epithelial Cells Occ /LPF Urine Bacteria 0 /HPF (0-FEW) Vital Signs: Vital Signs Date Time Temp Pulse Resp B/P (MAP) Pulse Ox O2 Delivery O2 Flow Rate FiO2 07/14/20 15:25 98.6 80 18 142/72 (95) 96 Room Air EKG: EKG: EKG was done at 1601, heart rate of 69 bpm, normal sinus rhythm, no ST segment elevation, no ectopy, normal conduction Radiology/Procedures: Radiology/Procedures: [][address] [address] IMAGING REPORT Signed PATIENT: GRABIEL DUKES ACCOUNT: [id number] : 1940 LOCATION: ER AGE: 79 SEX: F EXAM STATUS: PRE ER ORD. PHYSICIAN: FLORY SMITH DO REASON: slurred speech, drooling, CODE STROKE PROCEDURE: CT CODE STROKE HEAD WO CT CODE STROKE HEAD WO History:Slurred speech, drooling, code stroke Comparison: March 08, 2020 Technique: Noncontrast CT imaging was performed of the head. Exposure: One or more of the following individualized dose reduction techniques were utilized for this examination: 1. Automated exposure control 2. Adjustment of the mA and/or kV according to patient size 3. Use of iterative reconstruction technique. Findings: No acute extra-axial or parenchymal hemorrhage is identified. There is no significant intra-axial mass effect, midline shift, or extra-axial fluid collection. The austin-white differentiation of the major vascular territories is preserved. Ventricular size is stable, mild prominence of bilateral temporal horns greater on the right unchanged. There is mild supratentorial involutional change. There is mild patchy ill-defined low-density of the supratentorial parenchyma bilaterally also similar. The mastoid air cells and the visualized paranasal sinuses are aerated. No acute calvarial abnormality is identified. There is atherosclerotic calcification of the bilateral carotid siphons and intradural vertebral arteries. Focus of nonspecific, nonexpansile bone lysis of the right parietal calvarium is stable. Impression: 1. No acute intracranial hemorrhage is identified. Critical results were discussed with Dr. Smith at 07/14/2020 3:34 PM. Electronically signed by: Sky Reese MD (07/14/2020 3:37 PM) [id number] DICTATED AND SIGNED BY: SKY REESE MD DATE: 07/14/20 1537 CC: AMARIS NICHOLE MD; FLORY SMITH DO ~ Course & Med Decision Making: Course & Med Decision Making Pertinent Labs and Imaging studies reviewed. (See chart for details) Patient is a 79-year-old female who was brought here from [place] [facility] due to a brief episode of confusion with drooling from her mouth. It is suspect that patient had a seizure, patient did not have any headache, no chest pain, no abdominal pain, no nausea vomiting. Patient had no symptom when EMS brought her here. Patient did not have any problem while she was in the ER. Patient was awake alert oriented, had no focal neurological deficit. Dragon Disclaimer: DragKingmaker Disclaimer: This electronic medical record was generated, in whole or in part, using a voice recognition dictation system. Departure Departure: Impression: Primary Impression: Seizure Disposition: 01 HOME/RESIDENCE PRIOR TO ADM Condition: STABLE Referrals: AMARIS NCIHOLE MD (PCP) PLEASE FOLLOW UP WITH YOUR DOCTOR THIS WEEK Patient Instructions: Seizure, Adult Additional Instructions: Thank you for visiting our Emergency Department. We appreciate you trusting us with your care. If any additional problems come up don't hesitate to return to visit us. Please follow up with your primary care provider so they can plan additional care if needed and know about the problem that you had. If symptoms worsen come back to the Emergency Department. Any concerning symptoms that start such as chest pain, shortness of air, weakness or numbness on one side of the body, running high fevers or any other concerning symptoms return to the ER. Justification of Admission: Justification of Admission: Justification of Admission Dx: N/A FLORY SMITH DO Jul 14, 2020 18:17
== END 2020-07-14 19:23 | disposition home or self-care (01) ==
LOC: ER 15:08
DX: G40.909 Epilepsy, unspecified, not intractable, without status epilepticus (principal); E11.9 Type 2 diabetes mellitus without complications; I10 Essential (primary) hypertension; I25.10 Atherosclerotic heart disease of native coronary artery without angina pectoris
CPT/HCPCS: 36415; 70450; 80053; 81001; 83735; 83880; 84484; 85025; 85610; 85730; 87086; 93005; 99285

== ENCOUNTER → 2020-12-04 | Outpatient (CLI) | payer MEDICARE, OTHER ==
[~2020-12-04] MED LIST changes: +AMLO-187 PO; -AMLO10TA8 PO
--- NOTE | 2020-12-04 16:46 | RAD ---
XR ELBOW_LEFT 12/04/2020 12:56 PM INDICATION: Elbow and humerus fracture with surgical repair COMPARISON: None available. TECHNIQUE: 4 views of the left elbow are provided. FINDINGS/ IMPRESSION: Evaluation limited by overlapping cast material. Post surgical changes are identified from open reduc tion internal fixation of distal humeral fracture with lateral plate and screw fixation. There is no lucency surrounding the hardware. No fracture of the hardware. No new fractures identified. Alignment is near-anatomic. Electronically signed by: Charleen Hickman MD (12/04/2020 4:44 PM) [id number]
== END ==
LOC: RAD 12:38
PROVIDERS: ATTEND Physician Assistant
DX: M25.522 Pain in left elbow (principal); Z98.890 Other specified postprocedural states
CPT/HCPCS: 73070

== ENCOUNTER → 2021-01-01 | Outpatient (CLI) | payer MEDICARE, OTHER ==
[~2021-01-01] MED LIST changes: +LISI10TA16 PO; -LISI10TA2 PO
--- NOTE | 2021-01-01 19:28 | RAD ---
EXAM: XR ELBOW_LEFT 01/01/2021 2:20 PM CLINICAL INDICATION: Status post left elbow surgery COMPARISON: Left elbow radiograph 12/04/2020 TECHNIQUE: 3 views of the left elbow FINDINGS: A plate and screw fixation device traversing the humeral diaphyseal fracture is unchanged and intact. The fracture lines are slightly less conspicuous and there is new callus formation develo ping along the fracture margins. No definite new fracture. Alignment is normal. No joint effusion. Sp lint is in place. IMPRESSION: Healing internally fixed distal humeral diaphyseal fracture. Electronically signed by: Doris Granger MD (01/01/2021 7:25 PM) [id number]
== END ==
LOC: DXRAD 14:04
PROVIDERS: ATTEND Physician Assistant
DX: S42.402D Unspecified fracture of lower end of left humerus, subsequent encounter for fracture with routine healing (principal); X58.XXXD Exposure to other specified factors, subsequent encounter; Z98.890 Other specified postprocedural states
CPT/HCPCS: 73070

== ENCOUNTER → 2021-01-26 | Outpatient (CLI) | payer MEDICARE, OTHER ==
--- NOTE | 2021-01-27 14:03 | RAD ---
XR ELBOW_LEFT Clinical Indication: Post left elbow surgery. Comparison: Left elbow, 3 views January 01, 2021. Findings: Cast material has been removed. Redemonstrated internal fixation hardware of the distal humeral diaph ysis. Callus formation has increased from the prior study and fracture lines are slightly less distin ct. No obvious soft tissue swelling. No obvious deformity of the elbow. IMPRESSION: There is evidence of continued healing. Electronically signed by: Papi Hernandez MD (01/27/2021 2:00 PM) [id number]
== END ==
LOC: DXRAD 15:18
PROVIDERS: ATTEND Physician Assistant
DX: L84 Corns and callosities (principal); M25.522 Pain in left elbow
CPT/HCPCS: 73070

== ENCOUNTER → 2021-02-23 | Outpatient (CLI) | payer MEDICARE, OTHER ==
--- NOTE | 2021-02-24 08:35 | RAD ---
EXAM: XR HUMERUS_LT 2 VIEWS 02/23/2021 1:33 PM CLINICAL INDICATION: Postop follow-up COMPARISON: None TECHNIQUE: AP and lateral views of the left humerus FINDINGS: A plate and screw device traversing the distal humeral fracture is unchanged. No evidence of hardware complication. There has been progressive healing of the fracture with maturing callus for mation. Decreased conspicuity fracture lines. No new abnormality. IMPRESSION: Healing internally fixed distal humeral fracture, unchanged in alignment. Electronically signed by: Doris Granger MD (02/24/2021 8:33 AM) [id number]
== END ==
LOC: RAD 13:24
PROVIDERS: ATTEND Physician Assistant
DX: S42.402D Unspecified fracture of lower end of left humerus, subsequent encounter for fracture with routine healing (principal); X58.XXXD Exposure to other specified factors, subsequent encounter; Z98.890 Other specified postprocedural states
CPT/HCPCS: 73060

== ENCOUNTER 2022-03-27 21:05 | Inpatient (IN) | payer MEDICARE, OTHER ==
[~2022-03-27] VITALS: Ht 175.3 cm; Wt 60.1 kg
[~2022-03-27 21:05] MED LIST changes: +MIRT-7 PO; -MIRT15TA3 PO
--- NOTE | 2022-03-27 21:11 | PHYS DOC ---
Past History Past Medical History: Anxiety, Arthritis, CAD, CVA, Dementia, Depression, Diabetes, Hypertension, Seizure, Other Additional Past Medical Histor: HLD Past Surgical History: No Surgical History Smoking: Non-smoker Alcohol Use: None Drug Use: None General Adult EDM: Chief Complaint: OTHER COMPLAINTS HPI: HPI: "I... I .. Oh. hurts to pee..." Patient is a 81 year old female of [facility] who presents with above hx and complaints uti , fatigue and altered mental status today. Patient has been a resident of [facility] since 03/27/2022. Pt. recently started on antibiotic for UTI. Patient has a significant medical history of cerebrovascular disease, macular degeneration, osteoarthritis, dementia, behavioral disturbances, anxiety disorder, major depressive divorce order, recurrent depressive episodes, hyperlipidemia, type 2 diabetes, diabetic retinopathy, edema lower extremities, discoordination, displaced spiral fracture of humerus left arm, anemia, hypertension, deconditioning, seizures, pseudo bulbar affect,. Patient normally follows with Dr. Rodríguez. Review of Systems: Review of Systems: Patient poor historian review of system is somewhat limited because of dementia and presentation C Family History: Family History: Currently not available Current Medications: Current Meds: No known drug allergies Allergies: Allergies: Allergies Coded Allergies Type Severity Reaction Last Updated Verified No Known Drug Allergies 10/21/19 No Physical Exam: PE: Constitutional: no acute distress, chronically ill and appearance. [] HENT: Normocephalic, atraumatic, bilateral external ears normal, oropharynx moist, no oral exudates, nose normal. [] Eyes: PERRLA, EOMI, conjunctiva pale, no discharge. [] Neck: Normal range of motion, no tenderness, supple, no stridor. [] Cardiovascular: Tachycardia heart rate regular rhythm, no murmur [] PMI to left. Bedside monitor shows a sinus tachycardia does have occasional runs of A. fib and PVCs Lungs & Thorax: Bilateral breath sounds equal with bibasilar crackles auscultation up to mid chest. Abdomen: Bowel sounds normal, soft, no tenderness, no masses, no pulsatile masses. Scar Skin: Warm, dry, no erythema, no rash. Poor turgor Back: No tenderness, no CVA tenderness. [] Extremities: No tenderness, no cyanosis, no clubbing, ROM intact, no edema. Arthritic changes Neurologic: Alert to name, moves extremities peers have distal sensory,, Psychologic: Affect flat, judgement impaired, EKG: EKG: My interpretation EKG shows a sinus tachycardia at 107 bpm. There is some baseline artifact which may give the appearance of A. fib. Patient does have a history of A. fib [] Time of EKG is 2312 hrs. abnormal EKG My interpretation second EKG shows a sinus rhythm at ventricular rate of 85. No findings of A. fib. Baseline artifact not present on this EKG. No PVCs. Overall morphology is similar however. No findings of acute STEMI. Time of EKG is 502 hours Radiology/Procedures: Radiology/Procedures: [][place] [address] IMAGING REPORT Signed PATIENT: GRABIEL DUKES ACCOUNT: [id number] : 1940 LOCATION: ER AGE: 81 SEX: F EXAM STATUS: REG ER ORD. PHYSICIAN: TONI WANG MD REASON: altered mental PROCEDURE: CT HEAD WO CONTRAST EXAM: CT HEAD WITHOUT CONTRAST. HISTORY: Altered mental status. TECHNIQUE: Computed tomography of the head was performed without intravenous contrast. One or more of the following individualized dose reduction techniques were utilized for this examination: 1. Automated exposure control. 2. Adjustment of the mA and/or kV according to patient size. 3. Use of iterative reconstruction technique. COMPARISON: 07/14/2020. FINDINGS: There are limitations from motion artifact on some series. The examination remains diagnostic for the following. There is no intracranial hemorrhage. Hypoattenuation within the white matter indicates moderate chronic microangiopathic change. Prominence of the lateral ventricles and hemispheric sulci indicates moderate atrophy. The visualized paranasal sinuses appear clear. The orbits are unremarkable. The temporal bones are unremarkable. The calvarium reveals no suspicious lesions. There are atherosclerotic calcifications of the internal carotid and vertebral arteries. IMPRESSION: 1. Motion artifact. No acute intracranial findings. 2. Moderate atrophy and chronic microangiopathic white matter change. Electronically signed by: Lucio Vences MD (03/27/2022 10:56 PM) [facility] DICTATED AND SIGNED BY: HEYDI VENCES MD DATE: 03/27/22 9314 CC: TONI WANG MD; AMARIS RODRÍGUEZ MD ~ Heart Score: C/O Chest Pain: N/A HEART Score for Chest Pain: HEART Score for Chest Pain Response (Comments) Value History Moderately Suspicious 1 ECG Nonspecific Repolarizatio 1 Age > 65 2 Risk Factors 1 or 2 Risk Factors 1 Troponin >3 x Normal Limit 2 Total 7 Risk Factors: Risk Factors: DM, Current or recent (<one month) smoker, HTN, HLP, family history of CAD, obesity. Risk Scores: Score 0 - 3: 2.5% MACE over next 6 weeks - Discharge Home Score 4 - 6: 20.3% MACE over next 6 weeks - Admit for Clinical Observation Score 7 - 10: 72.7% MACE over next 6 weeks - Early Invasive Strategies Course & Med Decision Making: Course & Med Decision Making Pertinent Labs and Imaging studies reviewed. (See chart for details) Discussed presentation, testing and tx. plan with Dr. Rodriguez 0100 Discussed presentation and testing with - admit to [facility]. Plan continue Rocephin, give Lovenox and aspirin rectal. Reportedly per Nursing staff- will have hospital bed and staff at 0700 at [facility]. Endorsed to Dr Rojas at 0600 pending admit to [facility]. Impression: 1. Non-stemi WI - Trop 103 to 104 to 94. 2. Fatigue 3. Altered Mental Status 4. Dementia 5. Leukocytosis 28 .6 6. Elevated LFTs AST 122, Alt 103, Alk Phos 103 7. Elevated D-dimer 3.75 8. UTI [] Dragon Disclaimer: Dragon Disclaimer: This electronic medical record was generated, in whole or in part, using a voice recognition dictation system. Departure Departure: Referrals: AMARIS RODRÍGUEZ MD (PCP) Dragon Disclaimer This chart was dictated in whole or in part using Voice Recognition software in a busy, high-work load, and often noisy Emergency Department environment. It may contain unintended and wholly unrecognized errors or omissions. Dragon Disclaimer This chart was dictated in whole or in part using Voice Recognition software in a busy, high-work load, and often noisy Emergency Department environment. It may contain unintended and wholly unrecognized errors or omissions. TONI WANG MD March 27, 2022 21:11
[2022-03-27] MEDS ORDERED: cefTRIAXone SODIUM 1 GM VIAL ONE (22:10)
[2022-03-27] MEDS ORDERED: IV NORMAL SALINE 50ML 50 ML ONE (22:10)
[2022-03-27] MEDS ORDERED: IV RINGERS SOLUTION,LACTATED 1,000 ML IV SCH (22:15)
[2022-03-27 22:33] LABS: GLUCOSE,URINE NEG (NEG); UROBILINOGEN,URINE >=8.0 mg/dL (0.2 mg/dL)
[2022-03-27 22:34] LABS: BACTERIA,URINE MOD /HPF (0-FEW); CLARITY,URINE CLEAR; COLOR,URINE YELLOW; NITRITE,URINE POS (NEG); RBC,URINE 0 /HPF (0-2)
[2022-03-27 22:35] LABS: BARBITURATES NEG (NEG); BENZODIAZEPINES POS (NEG); CANNABINOIDS NEG (NEG); COCAINE NEG (NEG); METHADONE NEG (NEG); OPIATES NEG (NEG); PHENCYCLIDINE NEG (NEG)
[2022-03-27 22:38] LABS: AMPHETAMINE/METHAMPHETAMINE NEG (NEG)
--- NOTE | 2022-03-27 22:56 | RAD ---
EXAM: ABDOMEN ONE VIEW. HISTORY: Abdominal pain. COMPARISON: None. FINDINGS: A frontal view of the abdomen is obtained. There are no distended small bowel loops. There is gas distally. A bulla is suspected in the right base. There is interstitial lung disease or scarring in the left ba se. Atherosclerotic calcifications are noted. IMPRESSION: 1. No evidence of obstruction. 2. Interstitial lung disease or scarring in the bases. Electronically signed by: Lucio Vences MD (03/27/2022 10:54 PM) [facility]
--- NOTE | 2022-03-27 22:58 | RAD ---
EXAM: CT HEAD WITHOUT CONTRAST. HISTORY: Altered mental status. TECHNIQUE: Computed tomography of the head was performed without intravenous contrast. One or more of the following individualized dose reduction techniques were utilized for this examination: 1. Automated exposure control. 2. Adjustment of the mA and/or kV according to patient size. 3. Use of iterative reconstruction technique. COMPARISON: 07/14/2020. FINDINGS: There are limitations from motion artifact on some series. The examination remains diagnost ic for the following. There is no intracranial hemorrhage. Hypoattenuation within the white matter indicates moderate chron ic microangiopathic change. Prominence of the lateral ventricles and hemispheric sulci indicates mode rate atrophy. The visualized paranasal sinuses appear clear. The orbits are unremarkable. The temporal bones are un remarkable. The calvarium reveals no suspicious lesions. There are atherosclerotic calcifications of the internal carotid and vertebral arteries. IMPRESSION: 1. Motion artifact. No acute intracranial findings. 2. Moderate atrophy and chronic microangiopathic white matter change. Electronically signed by: Lucio Vences MD (03/27/2022 10:56 PM) [facility]
[2022-03-27 23:00] LABS: BASO # 0.2 x10^3/uL (0.0-0.2); BASO % 1 % (0-3); EOS % 0 % (0-3); HEMATOCRIT 32.8 % (36.0-47.0); HEMOGLOBIN 10.7 g/dL (12.0-15.5); LYMPH % 4 % (24-48); MEAN CORPUSCULAR HEMOGLOBIN 30 pg (25-35); MEAN CORPUSCULAR HGB CONC 33 g/dL (31-37); MEAN CORPUSCULAR VOLUME 91 fL (79-100); MONO # 1.5 x10^3/uL (0.0-1.1); MONO % 5 % (0-9); NEUT # 25.8 x10^3uL (1.8-7.7); NEUT % 90 % (31-73); PLATELET COUNT 378 x10^3/uL (140-400); RED BLOOD COUNT 3.62 x10^6/uL (3.50-5.40); RED CELL DISTRIBUTION WIDTH 15.6 % (11.5-14.5); WHITE BLOOD COUNT 28.6 x10^3/uL (4.0-11.0)
[2022-03-27 23:12] LABS: GFR 53.2; POTASSIUM 4.4 mmol/L (3.5-5.1)
[2022-03-27 23:24] LABS: DIRECT BILIRUBIN 0.7 mg/dL (0.0-0.2); MAGNESIUM 2.4 mg/dL (1.8-2.4); TOTAL PROTEIN 6.9 g/dL (6.4-8.2)
[2022-03-27 23:26] LABS: BGAS PH 7.63 (7.35-7.45)
[2022-03-27 23:29] LABS: % BANDS 8 % (0-9); % LYMPHS 4 % (24-48); % MONOS 2 % (0-10); % SEGS 86 % (35-66); PLT ESTIMATE ADEQUATE (ADEQUATE)
[2022-03-28 00:11] LABS: INFLUENZA A PATIENT NEGATIVE (NEGATIVE); INFLUENZA B PATIENT NEGATIVE (NEGATIVE)
[2022-03-28] MEDS ORDERED: ENOXAPARIN 40 MG/0.4 ML SYRINGE. SQ ONE (01:15)
[2022-03-28] MEDS ORDERED: ASPIRIN RECTAL 300 MG SUPP. PR ONE ×2 (01:15→01:45)
[2022-03-28] MEDS ORDERED: ENOXAPARIN ** NOTE DOSE ** SYRINGE SQ ONE (01:15)
[2022-03-28] MEDS ORDERED: ACETAMINOPHEN 325 MG TABLET PO PRN (01:45)
[2022-03-28] MEDS ORDERED: ONDANSETRON PF 4 MG/2 ML VIAL. IVP PRN (01:45)
[2022-03-28] MEDS: IPRATRPIUM/ALBUTEROL 0.5/2.5MG 3 ML NEBU. NEB SCH ×2 (08:00→12:16)
[2022-03-28 08:27] VITALS: BP 116/69
[2022-03-28 11:44] VITALS: BP 116/70
[2022-03-28] MEDS: ASPIRIN RECTAL 300 MG SUPP. PR SCH (12:16)
[2022-03-28 13:36] LABS: HEMATOCRIT 28.7 % (36.0-47.0); HEMOGLOBIN 9.2 g/dL (12.0-15.5); RED BLOOD COUNT 3.11 x10^6/uL (3.50-5.40); RED CELL DISTRIBUTION WIDTH 15.5 % (11.5-14.5); WHITE BLOOD COUNT 22.3 x10^3/uL (4.0-11.0)
[2022-03-28] MEDS ORDERED: LOPE2TAB27 PO (13:36)
[2022-03-28] MEDS ORDERED: DEXT1CAP PO (13:36)
[2022-03-28] MEDS ORDERED: MULT-245 PO (13:36)
[2022-03-28] MEDS ORDERED: ATOR10TA60 PO (13:36)
[2022-03-28] MEDS ORDERED: LEVE500T56 PO (13:36)
[2022-03-28] MEDS ORDERED: QUET25TA5 PO (13:36)
[2022-03-28 14:04] LABS: CALCIUM 8.3 mg/dL (8.5-10.1); GFR 53.2; POTASSIUM 4.7 mmol/L (3.5-5.1)
[2022-03-28 14:10] LABS: ALBUMIN 1.7 g/dL (3.4-5.0); ALBUMIN/GLOBULIN RATIO 0.5 (1.0-1.7); TOTAL BILIRUBIN 0.6 mg/dL (0.2-1.0); TOTAL PROTEIN 5.1 g/dL (6.4-8.2)
[2022-03-28] MEDS: ENOXAPARIN ** NOTE DOSE ** SYRINGE SQ SCH (14:23)
--- NOTE | 2022-03-28 14:42 | HP ---
DATE OF SERVICE: 03/28/2022 ADMIT DATE: 03/28/2022 HISTORY OF PRESENT ILLNESS: The patient is an 81-year-old female patient, a resident at [facility], who was brought to the Emergency Room with a complaint that she has dysuria and has history of urinary tract infection, fatigue and altered mental status. The patient has been a resident at [facility] since 03/27/2022. The patient recently started on antibiotic for UTI. Her multiple medical problems was extensively investigated in the Emergency Room and has had an EKG, which showed that she was in sinus tachycardia with a heart rate of 107 beats per minute, but no ST-segment elevation. Has had a chest x-ray and a CT scan of the head. The CT scan of the head showed that there is no intracranial hemorrhage. Hypoattenuation within the white matter indicates moderate chronic microangiopathic changes, prominence of the lateral ventricles and hemispheric sulci indicates moderate atrophy. The visualized paranasal sinuses appear clear. The orbits are unremarkable. The temporal bones are unremarkable. The calvarium reveals no suspicious lesion. There are atherosclerotic calcification of the internal carotid and vertebral arteries. Her KUB showed no evidence of obstruction, interstitial lung disease or scarring in the bases. Her lab work showed that she has marked leukocytosis with a white cell count of 28.6 with a manual differential showed 90% polymorphs, 4% lymphocytes. Her blood gases showed that she was tachypneic and what seemed to be respiratory alkalosis. Her chemistry was essentially unremarkable except elevated liver enzymes including AST, ALT, alkaline phosphatase, although her total bilirubin is normal. Her first set of cardiac enzymes showed troponin I high sensitivity of 103. The patient was admitted with her urinalysis showed the urine was yellow, clear with a pH of 6 and a small amount of leukocyte esterase, 0 rbc's, 5-10 wbc's and moderate amount of bacteria. Her influenza A and B as well as coronavirus by rapid antigen testing was negative. She apparently was admitted with a diagnosis of non-ST segment elevation myocardial infarction, altered mental status, dementia, leukocytosis, elevated liver enzymes, elevated D-dimer and UTI. She was treated with IV ceftriaxone and was started also on Lovenox and aspirin. PAST MEDICAL HISTORY: Significant for hypertension, seizure disorder, osteoarthritis, senile macular degeneration as well as type 2 diabetes. Had had also history of phenytoin toxicity and rhabdomyolysis and episode of acute kidney injury that has resolved. PAST SURGICAL HISTORY: Significant for tonsillectomy. FAMILY HISTORY: Noncontributory. SOCIAL HISTORY: She is currently a resident at [facility] [place] [facility]. She does not smoke, drink alcohol or use recreational drugs. ALLERGIES: She has no known drug allergies. MEDICATIONS: She is currently on the following medications: She is on amlodipine 10 mg once a day, lisinopril 10 mg twice a day, acetaminophen 650 mg every 6 hours. She is on Keppra 1000 mg twice a day and mirtazapine 15 mg at bedtime, and lorazepam 0.5 mg every 6 hours as needed. REVIEW OF SYSTEMS: As per history of present illness. PHYSICAL EXAMINATION: GENERAL: On arrival to the Emergency Room, the patient was chronically ill-appearing. She was pale, not jaundiced, cyanosed. No lymphadenopathy, no thyromegaly, no jugular venous distention, no lower limb edema. VITAL SIGNS: Her heart rate was 108, blood pressure was 158/85, temperature was 98.2, respiratory rate was 18 and oxygen saturation was 96% on 2 liters of oxygen. HEAD, EYES, EARS, NOSE, AND THROAT: Normocephalic, atraumatic. NECK: Supple. HEART: Showed normal first and second heart sounds. No gallop, rub or murmur. CHEST: Clear to auscultation. No crepitation or rhonchi anteriorly. ABDOMEN: Distended, soft, nontender. NEUROLOGIC: She is sleepy, but arousable. She does open her eyes and responds appropriately. All her cranial nerves are grossly intact. She moves extremities without difficulty. LABORATORY DATA: On arrival showed a white cell count 28.6, hemoglobin 11, hematocrit 33, MCV 91, and platelet count of 378,000 with a manual differential showed 90% polymorphs, 4% lymphocytes, 5% monocytes. Her arterial blood gases showed a pH of 7.63, a pCO2 of 30, a pO2 of 84, bicarbonate 32 and oxygen saturation was 98% on FiO2 of 36%. Her prothrombin time, INR and APTT were normal. Her D-dimer was high at 3.75. Her chemistry showed a serum sodium 136, potassium 4.4, chloride 99, bicarbonate 31, anion gap of 6, BUN 37, creatinine 1, estimated GFR was 53 mL per minute. Her glucose 125. Lactic acid was 0.8, calcium was 9, magnesium was 2.4. Total bilirubin was 1. AST, ALT, alkaline phosphatase are all elevated. CK was 636. Total protein 6.9, albumin 2 and lipase was 83. Her urinalysis showed the urine was yellow, clear with a pH of 6, specific gravity of 1.010. There was a trace of protein. The urine was negative for glucose, ketones, blood, nitrite and bilirubin. There was small amount of leukocyte esterase, 0 rbc's, 5-10 wbc's and moderate amount of bacteria. Her toxic screen was positive for benzodiazepine. Her influenza A and B were negative and coronavirus by rapid antigen testing was negative. The CT scan of the head showed motion artifacts. No acute intracranial finding. Moderate atrophy and chronic microangiopathic white matter changes. Her KUB showed no evidence of obstruction, interstitial lung disease or scarring in the bases. ASSESSMENT: The patient was admitted with altered mental status, elevated troponin, generalized fatigue, dementia, marked leukocytosis, elevated liver enzyme, elevated D-dimer and questionable urinary tract infection. PLAN: My plan is to reconcile all her medications. She would probably need her Keppra to be given IV. JOHNNY/SHY DR: Liz TID: [id number]
--- NOTE | 2022-03-28 14:46 | RAD ---
CT chest, abdomen and pelvis without contrast: Reason for examination: Abnormal liver function tests. Luis F leukocytosis and hypoxia. Helical images were obtained through the chest, abdomen and pelvis with no intravenous or oral contra st administered. Reconstruction was performed in sagittal and coronal planes. Exposure: One or more of the following individualized dose reduction techniques were utilized for thi s examination: 1. Automated exposure control 2. Adjustment of the mA and/or kV according to patient size 3. Use of iterative reconstruction technique. There is a small hypodense lesion in the left lobe of the thyroid gland measuring approximately 1.1 x 0.8 x 1.5 cm in greatest dimensions. The trachea and mainstem bronchi show no intraluminal lesions. No abnormality seen at the esophagus. The thoracic aorta shows arteriosclerotic vascular calcification and some tortuosity. There is some m ild dilatation of the ascending thoracic aorta 3 cm. The heart size is normal with no pericardial eff usion. The lung wasserman show a small left pleural effusion layering posteriorly. There are consolidative infi ltrates in the left upper lobe and posteriorly at the left lung base. There are also some mild infilt rates posteriorly in the right upper lobe. No pneumothorax is seen. No acute bony abnormalities are seen in the thorax. No abnormality seen at the liver, spleen, adrenal glands or pancreas. Gallbladder shows cholelithiasi s. The abdominal aorta shows arteriosclerotic vascular calcification. No abnormality seen at the inferio r vena cava. The kidneys show no renal masses, renal calculi, hydronephrosis or evidence of obstructi ve uropathy. There is a small hiatal hernia. The stomach shows no other focal abnormalities. The small intestinal tract shows no abnormal dilatation, wall thickening nor obstruction. There is diverticulosis of the s igmoid colon without diverticulitis or colitis evident. No abnormality seen at the bladder. Uterus appears atrophic. No adnexal masses are seen. No free flui d or free air seen in the abdomen or pelvis. There is severe degenerative disc disease at the L1-2, L4-5 and L5-S1 disc levels. No acute bony abno rmalities are seen. IMPRESSION: Consolidated infiltrates in the left upper lobe, left lower lobe and to a milder degree in the right upper lobe. Small left pleural effusion. Cholelithiasis. Small hiatal hernia. Diverticulosis without evidence of diverticulitis. Severe degenerative disc disease at the L1-2, L4-5 and L5-S1 disc levels. Electronically signed by: Sujey Martin MD (03/28/2022 2:44 PM) [facility]
[2022-03-28] MEDS ORDERED: IPRATRPIUM/ALBUTEROL 0.5/2.5MG 3 ML NEBU. NEB PRN (15:45)
[2022-03-28 15:53] VITALS: BP 121/66
[2022-03-28] MEDS: IV NORMAL SALINE 1,000ML 1,000 ML IV SCH (15:55)
[2022-03-28] MEDS ORDERED: VANCOMYCIN PER PHARMACY MC PRN (17:45)
[2022-03-28 18:18] VITALS: BP 118/72
[2022-03-28] MEDS: PIPERACILLIN/TAZOBACTAM 3.375 GM in IV NORMAL SALINE 50ML 50 ML IV SCH ×2 (18:33→23:59)
[2022-03-28] MEDS ORDERED: VANCOMYCIN 1.5 GM in IV NORMAL SALINE 500ML 500 ML IV ONE (19:00)
[2022-03-28] MEDS: LORazepam 1 MG TABLET PO PRN (19:59)
[2022-03-28] MEDS ORDERED: cefTRIAXone IM 1 GM VIAL IM ONE (21:00)
[2022-03-28 23:18] VITALS: BP 129/70
[2022-03-29] MEDS: ENOXAPARIN ** NOTE DOSE ** SYRINGE SQ SCH ×3 (01:00→13:50)
[2022-03-29] MEDS: LORazepam 1 MG TABLET PO PRN ×3 (01:25→18:07)
[2022-03-29 06:20] LABS: CALCIUM 8.2 mg/dL (8.5-10.1); CREATININE 0.8 mg/dL (0.6-1.0); GFR 68.8; POTASSIUM 4.6 mmol/L (3.5-5.1)
[2022-03-29] MEDS: PIPERACILLIN/TAZOBACTAM 3.375 GM in IV NORMAL SALINE 50ML 50 ML IV SCH ×4 (06:27→23:28)
[2022-03-29 07:07] VITALS: BP 121/70
[2022-03-29] MEDS: ASPIRIN RECTAL 300 MG SUPP. PR SCH (08:04)
[2022-03-29] MEDS: IV NORMAL SALINE 1,000ML 1,000 ML IV SCH ×2 (08:04→17:10)
--- NOTE | 2022-03-29 08:14 | PDOC2 ---
CARDIAC CONSULT DATE OF CONSULT DOS: DATE: 03/29/22 TIME: 08:01 REASON FOR CONSULT Reason for Consult NSTEMI REFERRING PHYSICIAN Referring Physician Dr. Duong SOURCE Source: Chart review HPI History of Present Illness This is a 81 female who presented from nursing facility secondary to altered mental status, fatigue, and UTI. Troponin level noted to be mildly elevated, which prompted this consult. Patient is presently somnolent and only opens eyes briefly to painful stimuli. No very response. Per chart review, patient was recently started on antibiotic for UTI and had complaints of dysuria. Was brought to the hospital secondary to altered mental status, fatigue, and UTI. no further information is available at this time. No reports of chest pain noted. PAST MEDICAL HISTORY Past Medical History Cardiovascular: Hyperlipidemia CENTRAL NERVOUS SYSTEM: CVA, Dementia, Seizure Musculoskeletal: Osteoarthritis PAST SURGICAL HISTORY Past Surgical History: Tonsillectomy FAMILY HISTORY Family History: Family History Unknown SOCIAL HISTORY Social History Smoke: No ALCOHOL: none Drugs: None Lives: senior living CURRENT MEDICATIONS Current Medications Current Medications Lactated Ringer's 1,000 ml @ 1,000 mls/hr Q1H IV Last administered on 03/27/22at 22:12; Start 03/27/22 at 22:15; Stop 03/27/22 at 23:14; Status DC Ceftriaxone Sodium 1 gm/ Sodium Chloride 50 ml @ 100 mls/hr 1X ONCE IV Last administered on 03/27/22at 22:12; Start 03/27/22 at 22:15; Stop 03/27/22 at 22:44; Status DC Sodium Chloride 50 ml @ As Directed STK-MED ONCE .ROUTE ; Start 03/27/22 at 22:10; Stop 03/27/22 at 22:11; Status DC Ceftriaxone Sodium (Rocephin) 1 gm STK-MED ONCE .ROUTE ; Start 03/27/22 at 22:10; Stop 03/27/22 at 22:11; Status DC Enoxaparin Sodium (Lovenox 40mg Syringe) 50 mg 1X ONCE SQ ; Start 03/28/22 at 01:15; Stop 03/28/22 at 01:16; Status Cancel Enoxaparin Sodium (Lovenox 60mg Syringe) 50 mg 1X ONCE SQ Last administered on 03/28/22at 01:32; Start 03/28/22 at 01:15; Stop 03/28/22 at 01:16; Status DC Aspirin (Aspirin Rectal Supp) 300 mg 1X ONCE VT Last administered on 03/28/22at 01:32; Start 03/28/22 at 01:15; Stop 03/28/22 at 01:16; Status DC Ondansetron HCl (Zofran) 4 mg PRN Q4HRS PRN IVP NAUSEA/VOMITING; Start 03/28/22 at 01:45; Stop 03/29/22 at 01:44; Status DC Acetaminophen (Tylenol) 650 mg PRN Q4HRS PRN PO FEVER > 100.3'F; Start 03/28/22 at 01:45; Stop 03/29/22 at 01:44; Status DC Albuterol/ Ipratropium (Duoneb) 3 ml RTQID NEB Last administered on 03/28/22at 08:00; Start 03/28/22 at 08:00; Stop 03/28/22 at 15:41; Status DC Aspirin (Aspirin Rectal Supp) 75 mg 1X ONCE VT ; Start 03/28/22 at 01:45; Stop 03/28/22 at 01:46; Status Cancel Enoxaparin Sodium (Lovenox 60mg Syringe) 55 mg Q12H SQ Last administered on 03/28/22at 14:23; Start 03/28/22 at 13:00 Ceftriaxone Sodium (Rocephin Im) 1 gm 1X ONCE IM ; Start 03/28/22 at 21:00; Stop 03/28/22 at 13:18; Status DC Aspirin (Aspirin Rectal Supp) 75 mg DAILY VT ; Start 03/28/22 at 09:00 Lorazepam (Ativan Inj) 1 mg 1X ONCE IVP Last administered on 03/28/22at 02:55; Start 03/28/22 at 03:00; Stop 03/28/22 at 03:01; Status DC Levetiracetam 1000 mg/Sodium Chloride 100 ml @ 400 mls/hr Q12HR IV Last administered on 03/28/22at 22:04; Start 03/28/22 at 14:00 Ceftriaxone Sodium 1 gm/ Sodium Chloride 50 ml @ 100 mls/hr Q24H IV ; Start 03/28/22 at 21:00; Stop 03/28/22 at 17:45; Status DC Sodium Chloride 1,000 ml @ 75 mls/hr [id number] IV Last administered on 03/28/22at 15:55; Start 03/28/22 at 14:30 Albuterol/ Ipratropium (Duoneb) 3 ml PRN Q4HRS PRN NEB SOA; Start 03/28/22 at 15:45; Stop 03/29/22 at 15:44 Piperacillin Sod/ Tazobactam Sod 3.375 gm/Sodium Chloride 50 ml @ 100 mls/hr Q6HRS IV Last administered on 03/29/22at 06:27; Start 03/28/22 at 18:00 Vancomycin HCl (Vanco Per Pharmacy) 1 each PRN DAILY PRN MC SEE COMMENTS Last administered on 03/28/22at 20:54; Start 03/28/22 at 17:45 Vancomycin HCl 1.5 gm/Sodium Chloride 500 ml @ 250 mls/hr 1X ONCE IV Last administered on 03/28/22at 19:58; Start 03/28/22 at 19:00; Stop 03/28/22 at 20:59; Status DC Lorazepam (Ativan) 0.5 mg PRN Q6HRS PRN PO ANXIETY / AGITATION Last admin istered on 03/29/22at 01:25; Start 03/28/22 at 19:30 Vancomycin HCl 1.25 gm/Sodium Chloride 250 ml @ 167 mls/hr Q24H IV ; Start 03/29/22 at 20:00 Vancomycin HCl (Vancomycin Trough Level) 1 each 1X ONCE MC ; Start 03/30/22 at 19:30; Stop 03/30/22 at 19:31 Active Scripts Active Reported Seroquel (Quetiapine Fumarate) 25 Mg Tablet 1 Tab PO QHS Nuedexta 20-10 Mg Capsule (Dextromethorphan Hbr/Quinidine) 1 Each Capsule 1 Cap PO BID 30 Days Multi Vitamin Daily (Multivitamin) 1 Each Tablet 1 Tab PO DAILY 30 Days Loperamide (Loperamide Hcl) 2 Mg Tablet 1 Tab PO Q12HR 30 Days Keppra (Levetiracetam) 500 Mg Tablet 1 Tab PO TID 30 Days Atorvastatin Calcium 10 Mg Tablet 1 Tab PO DAILY Ativan (Lorazepam) 1 Mg Tablet 0.5 Mg PO PRN Q6HRS PRN Tylenol (Acetaminophen) 325 Mg Tablet 650 Mg PO PRN Q6HRS PRN Amlodipine Besylate 10 Mg Tablet 10 Mg PO DAILY ALLERGIES Allergies: Coded Allergies: No Known Drug Allergies (Unverified , 10/21/19) PHYSICAL EXAM Physical Exam General: Other NAD HEENT: Atraumatic, Mucous membr. moist/pink Lungs: Other (diminished bases) Heart: Regular rate Abdomen: Soft Extremities: No edema Skin: No breakdown Psych/Mental Status: Other (somnolent ) MUSCULOSKELETAL: Osteoarthritic changes both hands VITALS Vital Signs Vital Signs Date Time Temp Pulse Resp B/P (MAP) Pulse Ox O2 Delivery O2 Flow Rate FiO2 03/29/22 07:07 98.3 80 18 121/70 (87) 92 Nasal Cannula 2.0 LABS LABS Laboratory Tests Test 03/27/22 22:00 03/27/22 22:40 03/27/22 23:05 03/27/22 23:30 Urine Collection Type U cath Urine Color Yellow Urine Clarity Clear Urine pH 6.0 Urine Specific Boykin 1.010 Urine Protein Trace (NEG-TRACE) Urine Glucose (UA) Neg mg/dL (NEG) Urine Ketones (Stick) Neg mg/dL (NEG) Urine Blood Neg (NEG) Urine Nitrite Pos (NEG) Urine Bilirubin Neg (NEG) Urine Urobilinogen Dipstick >=8.0 mg/dL (0.2 mg/dL) Urine Leukocyte Esterase Small (NEG) Urine RBC 0 /HPF (0-2) Urine WBC 5-10 /HPF (0-4) Urine Squamous Epithelial Cells None /LPF Urine Bacteria Mod /HPF (0-FEW) Urine Opiates Screen Neg (NEG) Urine Methadone Screen Neg (NEG) Urine Barbiturates Neg (NEG) Urine Phencyclidine Screen Neg (NEG) Urine Amphetamine/Methamphetamine Neg (NEG) Urine Benzodiazepines Screen Pos (NEG) Urine Cocaine Screen Neg (NEG) Urine Cannabinoids Screen Neg (NEG) Urine Ethyl Alcohol Neg (NEG) White Blood Count 28.6 x10^3/uL (4.0-11.0) Red Blood Count 3.62 x10^6/uL (3.50-5.40) Hemoglobin 10.7 g/dL (12.0-15.5) Hematocrit 32.8 % (36.0-47.0) Mean Corpuscular Volume 91 fL (79-100) Mean Corpuscular Hemoglobin 30 pg (25-35) Mean Corpuscular Hemoglobin Concent 33 g/dL (31-37) Red Cell Distribution Width 15.6 % (11.5-14.5) Platelet Count 378 x10^3/uL (140-400) Neutrophils (%) (Auto) 90 % (31-73) Lymphocytes (%) (Auto) 4 % (24-48) Monocytes (%) (Auto) 5 % (0-9) Eosinophils (%) (Auto) 0 % (0-3) Basophils (%) (Auto) 1 % (0-3) Neutrophils # (Auto) 25.8 x10^3uL (1.8-7.7) Lymphocytes # (Auto) 1.0 x10^3/uL (1.0-4.8) Monocytes # (Auto) 1.5 x10^3/uL (0.0-1.1) Eosinophils # (Auto) 0.0 x10^3/uL (0.0-0.7) Basophils # (Auto) 0.2 x10^3/uL (0.0-0.2) Segmented Neutrophils % 86 % (35-66) Band Neutrophils % 8 % (0-9) Lymphocytes % 4 % (24-48) Monocytes % 2 % (0-10) Platelet Estimate Adequate (ADEQUATE) Prothrombin Time 10.2 SEC (9.4-11.4) Prothromb Time International Ratio 1.0 (0.9-1.1) Activated Partial Thromboplast Time 25 SEC (23-33) D-Dimer (Mary Jane) 3.75 mg/L (0.00-0.50) Sodium Level 136 mmol/L (136-145) Potassium Level 4.4 mmol/L (3.5-5.1) Chloride Level 99 mmol/L (98-107) Carbon Dioxide Level 31 mmol/L (21-32) Anion Gap 6 (6-14) Blood Urea Nitrogen 37 mg/dL (7-20) Creatinine 1.0 mg/dL (0.6-1.0) Estimated GFR (Cockcroft-Gault) 53.2 Glucose Level 125 mg/dL (70-99) Lactic Acid Level 0.8 mmol/L (0.4-2.0) Calcium Level 9.0 mg/dL (8.5-10.1) Magnesium Level 2.4 mg/dL (1.8-2.4) Total Bilirubin 1.0 mg/dL (0.2-1.0) Direct Bilirubin 0.7 mg/dL (0.0-0.2) Aspartate Amino Transf (AST/SGOT) 122 U/L (15-37) Alanine Aminotransferase (ALT/SGPT) 103 U/L (14-59) Alkaline Phosphatase 309 U/L (46-116) Creatine Kinase 64 U/L (26-192) Troponin I High Sensitivity 103 ng/L (4-50) NY-Fet-W-Type Natriuretic Peptide 636 pg/mL (0-449) Total Protein 6.9 g/dL (6.4-8.2) Albumin 2.0 g/dL (3.4-5.0) Lipase 83 U/L (73-393) Thyroid Stimulating Hormone (TSH) 0.551 uIU/mL (0.358-3.740) Blood Gas pH 7.63 (7.35-7.45) Blood Gas PCO2 30 mmHg (35-45) Blood Gas PO2 84 mmHg (71-100) Blood Gas HCO3 32 mmol/L (22-26) Arterial Bld O2 Saturation (Calc) 98 % (92-99) FiO2 36 % Influenza Type A (Rapid) Negative (NEGATIVE) Influenza Type B (Rapid) Negative (NEGATIVE) SARS-CoV-2 Antigen (Rapid) Negative (NEGATIVE) Test 03/28/22 01:01 03/28/22 03:40 03/28/22 05:05 03/28/22 13:30 Troponin I High Sensitivity 104 ng/L (4-50) 94 ng/L (4-50) Coronavirus (COVID-19)(PCR) Not detected (NOT DETECTD) White Blood Count 22.3 x10^3/uL (4.0-11.0) Red Blood Count 3.11 x10^6/uL (3.50-5.40) Hemoglobin 9.2 g/dL (12.0-15.5) Hematocrit 28.7 % (36.0-47.0) Mean Corpuscular Volume 92 fL (79-100) Mean Corpuscular Hemoglobin 30 pg (25-35) Mean Corpuscular Hemoglobin Concent 32 g/dL (31-37) Red Cell Distribution Width 15.5 % (11.5-14.5) Platelet Count 331 x10^3/uL (140-400) Sodium Level 141 mmol/L (136-145) Potassium Level 4.7 mmol/L (3.5-5.1) Chloride Level 102 mmol/L (98-107) Carbon Dioxide Level 34 mmol/L (21-32) Anion Gap 5 (6-14) Blood Urea Nitrogen 40 mg/dL (7-20) Creatinine 1.0 mg/dL (0.6-1.0) Estimated GFR (Cockcroft-Gault) 53.2 BUN/Creatinine Ratio 40 (6-20) Glucose Level 96 mg/dL (70-99) Calcium Level 8.3 mg/dL (8.5-10.1) Total Bilirubin 0.6 mg/dL (0.2-1.0) Aspartate Amino Transf (AST/SGOT) 67 U/L (15-37) Alanine Aminotransferase (ALT/SGPT) 74 U/L (14-59) Alkaline Phosphatase 231 U/L (46-116) Total Protein 5.1 g/dL (6.4-8.2) Albumin 1.7 g/dL (3.4-5.0) Albumin/Globulin Ratio 0.5 (1.0-1.7) Test 03/29/22 05:55 Sodium Level 140 mmol/L (136-145) Potassium Level 4.6 mmol/L (3.5-5.1) Chloride Level 107 mmol/L (98-107) Carbon Dioxide Level 27 mmol/L (21-32) Anion Gap 6 (6-14) Blood Urea Nitrogen 32 mg/dL (7-20) Creatinine 0.8 mg/dL (0.6-1.0) Estimated GFR (Cockcroft-Gault) 68.8 Glucose Level 84 mg/dL (70-99) Calcium Level 8.2 mg/dL (8.5-10.1) ECHOCARDIOGRAM Echocardiogram <Conclusion> The left ventricular systolic function is normal. The Ejection Fraction is 55-60%. There is normal LV segmental wall motion. Doppler and Color Flow revealed mild tricuspid regurgitation. The PA pressure was estimated at 31 mmHg. There is no evidence of significant pericardial effusion. DATE: 03/10/20 4033 ASSESSMENT/PLAN Assessment/Plan 1. Encephalopathy with underlying dementia 2. UTI 3. Mild troponin elevation; peak 104. Most probably type II, demand ischemia. CP free. Echo 03/03 with preserved LV systolic function 4. Acute respiratory failure with possibly PNA 5. Leukocytosis. BC with no growth so far 6. Mildly elevated LFTs 7. Hyperlipidemia 8. Hypertension; controlled 9. H/o CVA and seizure disorder Recommendations ASA therapy Ongoing pulmonary optimization and treatment of UTI Supportive care from a CV standpoint CHARLOTTE AGUIRRE APRN March 29, 2022 08:14
[2022-03-29 10:02] LABS: BASO # 0.1 x10^3/uL (0.0-0.2); BASO % 0 % (0-3); EOS # 0.1 x10^3/uL (0.0-0.7); EOS % 0 % (0-3); HEMATOCRIT 27.3 % (36.0-47.0); HEMOGLOBIN 8.7 g/dL (12.0-15.5); LYMPH # 0.8 x10^3/uL (1.0-4.8); LYMPH % 5 % (24-48); MEAN CORPUSCULAR HEMOGLOBIN 30 pg (25-35); MEAN CORPUSCULAR HGB CONC 32 g/dL (31-37); MEAN CORPUSCULAR VOLUME 95 fL (79-100); MONO # 1.1 x10^3/uL (0.0-1.1); MONO % 7 % (0-9); NEUT # 14.2 x10^3uL (1.8-7.7); NEUT % 88 % (31-73); PLATELET COUNT 349 x10^3/uL (140-400); RED BLOOD COUNT 2.88 x10^6/uL (3.50-5.40); WHITE BLOOD COUNT 16.1 x10^3/uL (4.0-11.0)
[2022-03-29 11:05] VITALS: BP 115/65
--- NOTE | 2022-03-29 12:48 | RAD ---
US ABDOMEN COMPLETE History: Abdominal pain Comparison: CT chest abdomen and pelvis Technique: Sonographic examination of the abdomen. Findings: Pancreas: Visualized portions are unremarkable. Liver: The liver measures 15.3 cm. Liver echotexture is normal. No focal hepatic lesions. Hepatopet al flow in the portal vein. Gallbladder: Echogenic shadowing gallstones obscured the gallbladder. No wall thickening or perichole cystic fluid. Bile ducts: No intrahepatic biliary ductal dilatation. The common bile duct is not visualized due to obscuring bowel gas. Right kidney: 9.3 cm length. No mass or hydronephrosis. Spleen: 8.4 cm length. No masses. Left kidney: 10.8 cm length. No mass or hydronephrosis. Aorta/IVC: Visualized portions are unremarkable. Other: No ascites. Impression: 1. Cholelithiasis without evidence of acute cholecystitis. 2. Nonvisualized common bile duct due to obscuring bowel gas. No intrahepatic biliary ductal dilatat ion. Electronically signed by: Vasquez Barlow MD (03/29/2022 12:46 PM) [id number]
[2022-03-29 15:04] VITALS: BP 151/73
[2022-03-29 19:00] VITALS: BP 146/78
[2022-03-29] MEDS ORDERED: VANCOMYCIN 1.25 GM in IV NORMAL SALINE 250ML 250 ML IV SCH (20:00)
[2022-03-30] MEDS: ENOXAPARIN ** NOTE DOSE ** SYRINGE SQ SCH ×2 (01:00→12:18)
[2022-03-30] MEDS: LORazepam 1 MG TABLET PO PRN ×3 (01:19→19:38)
[2022-03-30] MEDS: IV NORMAL SALINE 1,000ML 1,000 ML IV SCH (04:46)
[2022-03-30] MEDS: PIPERACILLIN/TAZOBACTAM 3.375 GM in IV NORMAL SALINE 50ML 50 ML IV SCH ×3 (04:46→17:14)
[2022-03-30 05:16] VITALS: BP 154/65
[2022-03-30] MEDS: ASPIRIN RECTAL 300 MG SUPP. PR SCH (07:33)
--- NOTE | 2022-03-30 08:11 | PDOC ---
CARDIO Progress Notes Date & Time Date of Service DATE: 03/30/22 TIME: 08:10 Time of Evaluation 08:10 Subjective Notes no chest pain, palpitations, or shortness of breath. feel "okay" today Vitals Vitals Vital Signs Date Time Temp Pulse Resp B/P (MAP) Pulse Ox O2 Delivery O2 Flow Rate FiO2 03/30/22 07:40 Nasal Cannula 2.0 03/30/22 05:16 97.8 78 18 154/65 (94) 91 Weight Weight [ ] Input and Output I.O. Intake and Output 03/30/22 07:00 Intake Total 600 ml Output Total 900 ml Balance -300 ml Intake Oral 600 ml Output Urine Total 900 ml Laboratory Labs Laboratory Tests Test 03/28/22 13:30 03/29/22 05:55 03/29/22 09:55 White Blood Count 22.3 x10^3/uL (4.0-11.0) 16.1 x10^3/uL (4.0-11.0) Red Blood Count 3.11 x10^6/uL (3.50-5.40) 2.88 x10^6/uL (3.50-5.40) Hemoglobin 9.2 g/dL (12.0-15.5) 8.7 g/dL (12.0-15.5) Hematocrit 28.7 % (36.0-47.0) 27.3 % (36.0-47.0) Mean Corpuscular Volume 92 fL (79-100) 95 fL (79-100) Mean Corpuscular Hemoglobin 30 pg (25-35) 30 pg (25-35) Mean Corpuscular Hemoglobin Concent 32 g/dL (31-37) 32 g/dL (31-37) Red Cell Distribution Width 15.5 % (11.5-14.5) 16.0 % (11.5-14.5) Platelet Count 331 x10^3/uL (140-400) 349 x10^3/uL (140-400) Sodium Level 141 mmol/L (136-145) 140 mmol/L (136-145) Potassium Level 4.7 mmol/L (3.5-5.1) 4.6 mmol/L (3.5-5.1) Chloride Level 102 mmol/L (98-107) 107 mmol/L (98-107) Carbon Dioxide Level 34 mmol/L (21-32) 27 mmol/L (21-32) Anion Gap 5 (6-14) 6 (6-14) Blood Urea Nitrogen 40 mg/dL (7-20) 32 mg/dL (7-20) Creatinine 1.0 mg/dL (0.6-1.0) 0.8 mg/dL (0.6-1.0) Estimated GFR (Cockcroft-Gault) 53.2 68.8 BUN/Creatinine Ratio 40 (6-20) Glucose Level 96 mg/dL (70-99) 84 mg/dL (70-99) Calcium Level 8.3 mg/dL (8.5-10.1) 8.2 mg/dL (8.5-10.1) Total Bilirubin 0.6 mg/dL (0.2-1.0) Aspartate Amino Transf (AST/SGOT) 67 U/L (15-37) Alanine Aminotransferase (ALT/SGPT) 74 U/L (14-59) Alkaline Phosphatase 231 U/L (46-116) Total Protein 5.1 g/dL (6.4-8.2) Albumin 1.7 g/dL (3.4-5.0) Albumin/Globulin Ratio 0.5 (1.0-1.7) Neutrophils (%) (Auto) 88 % (31-73) Lymphocytes (%) (Auto) 5 % (24-48) Monocytes (%) (Auto) 7 % (0-9) Eosinophils (%) (Auto) 0 % (0-3) Basophils (%) (Auto) 0 % (0-3) Neutrophils # (Auto) 14.2 x10^3uL (1.8-7.7) Lymphocytes # (Auto) 0.8 x10^3/uL (1.0-4.8) Monocytes # (Auto) 1.1 x10^3/uL (0.0-1.1) Eosinophils # (Auto) 0.1 x10^3/uL (0.0-0.7) Basophils # (Auto) 0.1 x10^3/uL (0.0-0.2) Microbiology Micro Microbiology 03/27/22 Blood Culture - Preliminary, Resulted NO GROWTH AFTER 2 DAYS... 03/27/22 Urine Culture - Preliminary, Resulted Enterobacter Aerogenes Physical Exams HEENT: Neck Supple W Full Motion Chest: Symmetric Lungs: Clear to Auscultation Heart: RRR Abdomen: Soft N/T Extremities: No Edema Neurology: alert, follow commands Assessment Assessment 1. Encephalopathy with underlying dementia 2. UTI 3. Mild troponin elevation; peak 104. Most probably type II, demand ischemia. CP free. Echo 03/03 with preserved LV systolic function. Denies any CP 4. Acute respiratory failure with possible PNA 5. Leukocytosis. BC with no growth so far 6. Mildly elevated LFTs 7. Hyperlipidemia 8. Hypertension; controlled 9. H/o CVA and seizure disorder 10. Arrhythmia; tele noted with few very brief bursts of SVT, possibly AFIB Recommendations Will add low dose metoprolol for rate control ASA therapy On Lovenox. Probable poor candidate for long-term OAC given comorbidities Ongoing pulmonary optimization and treatment of UTI Supportive care from a CV standpoint CHARLOTTE AGUIRRE APRN March 30, 2022 08:11
--- NOTE | 2022-03-30 09:28 | PN ---
DATE: 03/29/2022 SUBJECTIVE: The patient is resting slightly propped up in bed, in no apparent distress. She is confused, yelling asking for help, but she does not know why. PHYSICAL EXAMINATION: GENERAL: When I examined her, she was pale, but no jaundice, cyanosis or thyromegaly. No jugular venous distention. No limb edema. VITAL SIGNS: Her heart rate was 80, blood pressure was 115/65, temperature was 98.3, respiratory rate was 16 and oxygen saturation was 95% on 3 liters of oxygen. HEAD, EYES, EARS, NOSE AND THROAT: Normocephalic, atraumatic. NECK: Supple. HEART: Showed normal first and second heart sounds. No gallop or murmur. CHEST: Shows central trachea, equal bilateral chest expansion, air entry, vesicular breath sounds. I could not appreciate any crepitation or rhonchi anteriorly. She has bilateral basal crepitations. Few scattered rhonchi. ABDOMEN: Distended, soft, nontender. NEUROLOGIC: She is awake, alert, but confused. All her cranial nerves intact. She moves extremities without difficulty, although she is mostly bedbound. Her intake over the last 24 hours was 1050, no output was recorded. LABORATORY DATA: As of this morning, her white cell count is down to 16,000, hemoglobin 8.7, hematocrit 27.3, MCV 95. Her platelet count 349,000. Her chemistry showed a serum sodium 140, potassium 4.6, chloride 107, bicarbonate 27, anion gap of 6, BUN 32, creatinine 0.8. Estimated GFR was 68 mL per minute. Her glucose was 84 and calcium was 8.2. ASSESSMENT: 1. Altered mental status, resolved. 2. Elevated troponin with normal EKG. 3. Marked leukocytosis. 4. Elevated liver enzyme. Her D-dimer was elevated and there was a questionable urinary tract infection. Her CT scan showed multilobar pneumonia. PLAN: My plan is to continue with IV antibiotic for now. Her urine culture has grown Enterobacter aerogenes. The sensitivity is still pending. MIMI DR: Liz TID: [id number]
[2022-03-30 10:55] VITALS: BP 125/70
[2022-03-30] MEDS: METOPROLOL TARTRATE 5 MG/5 ML VIAL. IV SCH ×2 (11:55→17:15)
[2022-03-30] MEDS ORDERED: ALBUTEROL SULFATE 8GM INHALER. INH PRN (13:00)
[2022-03-30 16:56] VITALS: BP 124/58
[2022-03-30 19:00] VITALS: BP 153/68
[2022-03-30] MEDS: levETIRAcetam 500 MG TABLET PO SCH (19:39)
[2022-03-30 23:00] VITALS: BP 171/70
[2022-03-31] MEDS: METOPROLOL TARTRATE 5 MG/5 ML VIAL. IV SCH ×2 (00:09→06:02)
[2022-03-31] MEDS: PIPERACILLIN/TAZOBACTAM 3.375 GM in IV NORMAL SALINE 50ML 50 ML IV SCH ×5 (00:09→23:38)
[2022-03-31] MEDS: ENOXAPARIN ** NOTE DOSE ** SYRINGE SQ SCH ×2 (00:10→17:00)
--- NOTE | 2022-03-31 04:14 | PN ---
DATE: 03/30/2022 SUBJECTIVE: The patient is resting, slightly propped up in bed, sleeping comfortably, in no apparent distress. She continued to yell and howls the whole day. However, she is generally more awake, answers questions appropriately, although she asked for help, but when we asked what she needs, she does not know what is asking for. PHYSICAL EXAMINATION: GENERAL: When I examined her, she was pale, somewhat cachectic, but no jaundice, cyanosis or thyromegaly. No jugular venous distention. No lower limb edema. VITAL SIGNS: Her heart rate was 75, blood pressure was 125/70, temperature was 97.6, respiratory rate was 18 and oxygen saturation was 95% on 2 liters of oxygen. HEAD, EYES, EARS, NOSE, AND THROAT: Normocephalic, atraumatic. NECK: Supple. HEART: Showed normal first and second heart sounds. No gallop, rub or murmur. CHEST: Clear to auscultation, no crepitation or rhonchi. ABDOMEN: Distended, soft, nontender, no guarding or rigidity. No organomegaly. All hernial orifice intact. Bowel sounds normal. NEUROLOGIC: She is sleepy, but arousable. All cranial nerves intact. She moves extremities without difficulty, although she is mostly bedbound. Her intake was 490, no output was recorded. LABORATORY DATA: She has no lab work done today; however, yesterday, her white cell count is down to 16,000, hemoglobin 8.7, hematocrit 27, MCV 95 and platelet count 349,000. Her chemistry showed a serum sodium 140, potassium 4.6, chloride 107, bicarbonate 27, anion gap of 6, BUN 32, creatinine 0.8. Estimated GFR was 68 mL per minute. ASSESSMENT: 1. Altered mental status, resolved. 2. Elevated troponin with normal EKG. 3. Acute myocardial infarction ruled out. 4. Marked leukocytosis with multilobar pneumonia for which she is on IV Zosyn and vancomycin. 5. Elevated liver enzyme; however, the abdominal ultrasound showed cholelithiasis without evidence of acute cholecystitis. D-dimer was elevated. 5. Questionable urinary tract infection. Her urine culture has grown Enterobacter aerogenes, sensitive to almost all antibiotics. PLAN: I will discontinue IV vancomycin, given that her blood cultures showed no growth after 2 days. Meanwhile, continue with Zithromax and eventually once she is discharged, she can be discharged perhaps on cefdinir. LC DR: Liz TID: [id number]
[2022-03-31 05:00] VITALS: BP 178/78
[2022-03-31 06:25] LABS: BASO % 0 % (0-3); EOS # 0.1 x10^3/uL (0.0-0.7); EOS % 1 % (0-3); HEMATOCRIT 28.1 % (36.0-47.0); HEMOGLOBIN 9.4 g/dL (12.0-15.5); LYMPH % 9 % (24-48); MEAN CORPUSCULAR HEMOGLOBIN 31 pg (25-35); MEAN CORPUSCULAR HGB CONC 34 g/dL (31-37); MEAN CORPUSCULAR VOLUME 92 fL (79-100); MONO # 0.9 x10^3/uL (0.0-1.1); MONO % 8 % (0-9); NEUT # 9.3 x10^3uL (1.8-7.7); NEUT % 82 % (31-73); PLATELET COUNT 431 x10^3/uL (140-400); RED BLOOD COUNT 3.06 x10^6/uL (3.50-5.40); RED CELL DISTRIBUTION WIDTH 15.6 % (11.5-14.5); WHITE BLOOD COUNT 11.3 x10^3/uL (4.0-11.0)
[2022-03-31 06:50] LABS: ALBUMIN 1.5 g/dL (3.4-5.0); ALBUMIN/GLOBULIN RATIO 0.3 (1.0-1.7); CALCIUM 8.1 mg/dL (8.5-10.1); CREATININE 0.7 mg/dL (0.6-1.0); GFR 80.3; POTASSIUM 3.5 mmol/L (3.5-5.1); TOTAL BILIRUBIN 0.7 mg/dL (0.2-1.0); TOTAL PROTEIN 5.9 g/dL (6.4-8.2)
[2022-03-31] MEDS: levETIRAcetam 500 MG TABLET PO SCH ×2 (08:07→19:49)
--- NOTE | 2022-03-31 08:47 | PDOC ---
CHARLOTTE AGUIRRE MODESTO 03/31/22 0847: CARDIO Progress Notes Date & Time Date of Service DATE: 03/31/22 TIME: 08:47 Time of Evaluation 08:47 Subjective Notes denies any chest pain or shortness of breath Vitals Vitals Vital Signs Date Time Temp Pulse Resp B/P (MAP) Pulse Ox O2 Delivery O2 Flow Rate FiO2 03/31/22 06:02 62 178/78 03/31/22 05:00 98.6 18 92 Nasal Cannula 2.0 Weight Weight [ ] Input and Output I.O. Intake and Output 03/31/22 07:00 Intake Total 590 ml Output Total 800 ml Balance -210 ml Intake Oral 540 ml IV Total 50 ml Output Urine Total 800 ml Laboratory Labs Laboratory Tests Test 03/29/22 09:55 03/31/22 06:10 White Blood Count 16.1 x10^3/uL (4.0-11.0) 11.3 x10^3/uL (4.0-11.0) Red Blood Count 2.88 x10^6/uL (3.50-5.40) 3.06 x10^6/uL (3.50-5.40) Hemoglobin 8.7 g/dL (12.0-15.5) 9.4 g/dL (12.0-15.5) Hematocrit 27.3 % (36.0-47.0) 28.1 % (36.0-47.0) Mean Corpuscular Volume 95 fL (79-100) 92 fL (79-100) Mean Corpuscular Hemoglobin 30 pg (25-35) 31 pg (25-35) Mean Corpuscular Hemoglobin Concent 32 g/dL (31-37) 34 g/dL (31-37) Red Cell Distribution Width 16.0 % (11.5-14.5) 15.6 % (11.5-14.5) Platelet Count 349 x10^3/uL (140-400) 431 x10^3/uL (140-400) Neutrophils (%) (Auto) 88 % (31-73) 82 % (31-73) Lymphocytes (%) (Auto) 5 % (24-48) 9 % (24-48) Monocytes (%) (Auto) 7 % (0-9) 8 % (0-9) Eosinophils (%) (Auto) 0 % (0-3) 1 % (0-3) Basophils (%) (Auto) 0 % (0-3) 0 % (0-3) Neutrophils # (Auto) 14.2 x10^3uL (1.8-7.7) 9.3 x10^3uL (1.8-7.7) Lymphocytes # (Auto) 0.8 x10^3/uL (1.0-4.8) 1.0 x10^3/uL (1.0-4.8) Monocytes # (Auto) 1.1 x10^3/uL (0.0-1.1) 0.9 x10^3/uL (0.0-1.1) Eosinophils # (Auto) 0.1 x10^3/uL (0.0-0.7) 0.1 x10^3/uL (0.0-0.7) Basophils # (Auto) 0.1 x10^3/uL (0.0-0.2) 0.0 x10^3/uL (0.0-0.2) Sodium Level 143 mmol/L (136-145) Potassium Level 3.5 mmol/L (3.5-5.1) Chloride Level 107 mmol/L (98-107) Carbon Dioxide Level 30 mmol/L (21-32) Anion Gap 6 (6-14) Blood Urea Nitrogen 14 mg/dL (7-20) Creatinine 0.7 mg/dL (0.6-1.0) Estimated GFR (Cockcroft-Gault) 80.3 BUN/Creatinine Ratio 20 (6-20) Glucose Level 87 mg/dL (70-99) Calcium Level 8.1 mg/dL (8.5-10.1) Total Bilirubin 0.7 mg/dL (0.2-1.0) Aspartate Amino Transf (AST/SGOT) 48 U/L (15-37) Alanine Aminotransferase (ALT/SGPT) 56 U/L (14-59) Alkaline Phosphatase 206 U/L (46-116) Total Protein 5.9 g/dL (6.4-8.2) Albumin 1.5 g/dL (3.4-5.0) Albumin/Globulin Ratio 0.3 (1.0-1.7) Microbiology Micro Microbiology 03/27/22 Blood Culture - Preliminary, Resulted NO GROWTH AFTER 3 DAYS... 03/27/22 Urine Culture - Final, Complete Enterobacter Aerogenes Physical Exams HEENT: Neck Supple W Full Motion Chest: Symmetric Lungs: Clear to Auscultation Heart: RRR Abdomen: Soft N/T Extremities: No Edema Neurology: alert, follow commands, confused Assessment Assessment 1. Encephalopathy with underlying dementia 2. UTI 3. Mild troponin elevation; peak 104. Most probably type II, demand ischemia. CP free. Echo 03/03 with preserved LV systolic function. Denies any CP 4. Acute respiratory failure with possible PNA 5. Leukocytosis. BC with no growth so far 6. Mildly elevated LFTs 7. Hyperlipidemia 8. Hypertension; controlled 9. H/o CVA and seizure disorder 10. Arrhythmia; tele noted with few very brief bursts of SVT, possibly AFIB. presently SR Recommendations Low dose metoprolol for rate control- convert to oral ASA therapy On Lovenox. Probable poor candidate for long-term OAC given comorbidities Ongoing pulmonary optimization and treatment of UTI Supportive care from a CV standpoint ACE LIU MD 04/01/22 1050: CARDIO Progress Notes Plan Plan Late entry for 03/31/2022 Patient seen and examined. Agree with above nurse practitioner note. Patient is minimally responsive. She appears to be frail and overall significant debilitated. Supportive care from CV standpoint. CHARLOTTE AGUIRRE APRN March 31, 2022 08:47 ACE LIU MD April 01, 2022 10:50
[2022-03-31 11:26] VITALS: BP 134/75
[2022-03-31 15:43] VITALS: BP 127/67
[2022-03-31] MEDS: ASPIRIN CHEWABLE 81 MG TABLET. PO SCH (17:23)
[2022-03-31] MEDS: METOPROLOL TART IMMED RELEASE 25 MG TABLET. PO SCH (19:49)
[2022-03-31 20:31] VITALS: BP 138/69
[2022-04-01] MEDS: ENOXAPARIN ** NOTE DOSE ** SYRINGE SQ SCH ×2 (01:00→12:25)
--- NOTE | 2022-04-01 01:14 | PN ---
DATE: 03/31/2022 ATTENDING PHYSICIAN: Dr. Lopez, Dr. Cates. SUBJECTIVE: Weakness. The patient is demented and could not follow any commands. OBJECTIVE FINDINGS: VITAL SIGNS: Blood pressure this morning is 178/78, pulse is 62 and regular, oxygen saturation 92% on 2 liters by nasal cannula. HEENT: Head is without trauma. Pupils are reactive. Orbits are sunken. NECK: Supple, no bruits. LUNGS: Coarse rhonchi bilaterally. CARDIOVASCULAR: Showed distant heart tones. No gallop. ABDOMEN: Soft. No guarding. EXTREMITIES: Without edema. NEUROLOGIC: Profoundly confused and bedridden. PERTINENT LABORATORY DATA: Her hemoglobin this morning is 9.4 g/dL with a white count 11,300. Creatinine is 0.7 mg/dL. Electrolytes within range. Transaminases slightly elevated. Serology negative for coronavirus. Blood cultures are negative at 72 hours. Urine cultures grew Enterobacter aerogenes, which most likely is a contaminant. Chest x-ray reviewed. ASSESSMENT: 1. An 81-year-old female, retirement patient with altered mentation, back to about baseline. 2. Elevated troponin due to stress demand ischemia. 3. Myocardial infarct ruled out. 4. Multilobar pneumonia, most likely aspiration. 5. Elevation of liver enzymes. 6. Questionable urinary tract infection. PLAN: 1. Continue Zithromax. 2. Continue hydration. 3. Followup chemistries. 4. Supportive care. She is a DNR per advanced directive. No family is here. OSCAR/ITALIA GATICA: OSCAR/julia TID: [id number]
[2022-04-01] MEDS: PIPERACILLIN/TAZOBACTAM 3.375 GM in IV NORMAL SALINE 50ML 50 ML IV SCH ×4 (05:35→23:11)
[2022-04-01 06:30] VITALS: BP 162/75
--- NOTE | 2022-04-01 08:10 | PDOC ---
CARDIO Progress Notes Date & Time Date of Service DATE: 04/01/22 TIME: 08:10 Time of Evaluation 08:10 Subjective Notes more alert today. No chest pain or shortness of breath Vitals Vitals Vital Signs Date Time Temp Pulse Resp B/P (MAP) Pulse Ox O2 Delivery O2 Flow Rate FiO2 04/01/22 06:30 99.4 77 20 162/75 (104) 91 Room Air 03/31/22 20:00 Weight Weight [ ] Input and Output I.O. Intake and Output 04/01/22 07:00 Intake Total 610 ml Output Total 450 ml Balance 160 ml Intake Oral 460 ml IV Total 150 ml Output Urine Total 450 ml Laboratory Labs Laboratory Tests Test 03/31/22 06:10 White Blood Count 11.3 x10^3/uL (4.0-11.0) Red Blood Count 3.06 x10^6/uL (3.50-5.40) Hemoglobin 9.4 g/dL (12.0-15.5) Hematocrit 28.1 % (36.0-47.0) Mean Corpuscular Volume 92 fL (79-100) Mean Corpuscular Hemoglobin 31 pg (25-35) Mean Corpuscular Hemoglobin Concent 34 g/dL (31-37) Red Cell Distribution Width 15.6 % (11.5-14.5) Platelet Count 431 x10^3/uL (140-400) Neutrophils (%) (Auto) 82 % (31-73) Lymphocytes (%) (Auto) 9 % (24-48) Monocytes (%) (Auto) 8 % (0-9) Eosinophils (%) (Auto) 1 % (0-3) Basophils (%) (Auto) 0 % (0-3) Neutrophils # (Auto) 9.3 x10^3uL (1.8-7.7) Lymphocytes # (Auto) 1.0 x10^3/uL (1.0-4.8) Monocytes # (Auto) 0.9 x10^3/uL (0.0-1.1) Eosinophils # (Auto) 0.1 x10^3/uL (0.0-0.7) Basophils # (Auto) 0.0 x10^3/uL (0.0-0.2) Sodium Level 143 mmol/L (136-145) Potassium Level 3.5 mmol/L (3.5-5.1) Chloride Level 107 mmol/L (98-107) Carbon Dioxide Level 30 mmol/L (21-32) Anion Gap 6 (6-14) Blood Urea Nitrogen 14 mg/dL (7-20) Creatinine 0.7 mg/dL (0.6-1.0) Estimated GFR (Cockcroft-Gault) 80.3 BUN/Creatinine Ratio 20 (6-20) Glucose Level 87 mg/dL (70-99) Calcium Level 8.1 mg/dL (8.5-10.1) Total Bilirubin 0.7 mg/dL (0.2-1.0) Aspartate Amino Transf (AST/SGOT) 48 U/L (15-37) Alanine Aminotransferase (ALT/SGPT) 56 U/L (14-59) Alkaline Phosphatase 206 U/L (46-116) Total Protein 5.9 g/dL (6.4-8.2) Albumin 1.5 g/dL (3.4-5.0) Albumin/Globulin Ratio 0.3 (1.0-1.7) Microbiology Micro Microbiology 03/27/22 Blood Culture - Preliminary, Resulted NO GROWTH AFTER 4 DAYS... 03/27/22 Urine Culture - Final, Complete Enterobacter Aerogenes Physical Exams HEENT: Neck Supple W Full Motion Chest: Symmetric Lungs: Clear to Auscultation Heart: RRR Abdomen: Soft N/T Extremities: No Edema Neurology: alert, follow commands, confused Assessment Assessment 1. Encephalopathy with underlying dementia 2. UTI 3. Mild troponin elevation; peak 104. Most probably type II, demand ischemia. CP free. Echo 03/03 with preserved LV systolic function. Denies any CP 4. Acute respiratory failure with possible PNA. improved 5. Leukocytosis. BC with no growth after 4 days 6. Mildly elevated LFTs 7. Hyperlipidemia 8. Hypertension; controlled 9. H/o CVA and seizure disorder; on Keppra 10. Arrhythmia; tele noted with few very brief bursts PAFIB. presently SR Recommendations Low dose metoprolol for rate control ASA therapy Poor candidate for long-term OAC given comorbidities Ongoing pulmonary optimization and treatment of UTI Supportive care from a CV standpoint CHARLOTTE AGUIRRE APRN April 01, 2022 08:10
[2022-04-01] MEDS: ASPIRIN CHEWABLE 81 MG TABLET. PO SCH (09:28)
[2022-04-01] MEDS: METOPROLOL TART IMMED RELEASE 25 MG TABLET. PO SCH ×2 (09:28→20:01)
[2022-04-01] MEDS: levETIRAcetam 500 MG TABLET PO SCH ×2 (09:28→20:01)
[2022-04-01] MEDS ORDERED: ALBUTEROL SULFATE 2.5 MG/3 ML NEBU. NEB PRN (09:45)
[2022-04-01 10:47] VITALS: BP 153/75
[2022-04-01] MEDS ORDERED: MAGNESIUM CITRATE 296 ML SOLUTION. PO PRN (11:30)
--- NOTE | 2022-04-01 12:06 | RAD ---
XR CHEST 1V INDICATION: shortness of breath COMPARISON STUDY: CT chest 03/28/2022. FINDINGS: Lungs: Normal lung volume. Persistent left lung opacities. Pleura: Small left pleural effusion. Heart and Mediastinum: The cardiomediastinal silhouette is normal. Atherosclerosis of the thoracic ao rta. IMPRESSION: Persistent left lung opacities. Small left pleural effusion. Electronically signed by: Jaron Islas MD (04/01/2022 12:04 PM) [id number]
[2022-04-01 15:47] VITALS: BP 156/77
[2022-04-01 19:03] VITALS: BP 170/89
[2022-04-01] MEDS: LORazepam 1 MG TABLET PO PRN (22:07)
--- NOTE | 2022-04-01 23:00 | PN ---
DATE: 04/01/2022 ATTENDING PHYSICIAN: Dr. Cali Lopez. SUBJECTIVE: The patient is more awake this morning, but she is quite agitated. She is confused. OBJECTIVE FINDINGS: VITAL SIGNS: Blood pressure this morning is 162/75 mmHg, her pulse is 77 and regular, temperature is 99.4 degrees Fahrenheit, oxygen saturation 91% on room air. HEENT: Head is without trauma. Pupils are reactive. Sclerae nonicteric. Oropharynx clear. NECK: Supple, no bruits. LUNGS: Diminished breath sounds at bases. CARDIOVASCULAR: Showed regular heart tones. ABDOMEN: Soft. EXTREMITIES: Showed no cyanosis or edema. NEUROLOGIC: Profound confusion with agitation. She is bedridden. LABORATORY DATA: From yesterday reviewed. ASSESSMENT: 1. An 81-year-old female with long-term-acquired pneumonia bilaterally. 2. Altered mentation, back to baseline. 3. Elevated troponin due to stress demand ischemia. 4. Myocardial infarction ruled out. 5. Elevation of liver enzymes, etiology is uncertain. 6. Questionable urinary tract infection. PLAN: 1. Continue Zithromax as ordered. 2. Continue hydration. 3. Diet as tolerated. 4. We are working on placement back to the long-term. She remains a DNR per advanced directives. OSCAR/SHAI DR: OSCAR/julia TID: [id number]
[2022-04-02] MEDS: ENOXAPARIN ** NOTE DOSE ** SYRINGE SQ SCH (01:00)
[2022-04-02] MEDS: PIPERACILLIN/TAZOBACTAM 3.375 GM in IV NORMAL SALINE 50ML 50 ML IV SCH (05:46)
[2022-04-02] MEDS: levETIRAcetam 500 MG TABLET PO SCH (07:22)
[2022-04-02] MEDS: METOPROLOL TART IMMED RELEASE 25 MG TABLET. PO SCH (07:22)
[2022-04-02] MEDS: ASPIRIN CHEWABLE 81 MG TABLET. PO SCH (07:22)
[2022-04-02] MEDS: LORazepam 1 MG TABLET PO PRN (07:23)
[2022-04-02 08:07] VITALS: BP 123/67
--- NOTE | 2022-04-02 09:30 | DS ---
DATE OF DISCHARGE: 04/02/2022 ATTENDING PHYSICIAN: Dr. Lopez. FINAL DISCHARGE DIAGNOSES: 1. Altered mentation, resolved. 2. Multilobar pneumonia, improving. 3. Probable aspiration. 4. Elevated enzymes, troponin levels were elevated on admission, due to stress demand ischemia. 5. Elevation of liver enzymes. 6. Profound underlying dementia. 7. Chronic obstructive pulmonary disease. HISTORY AND PHYSICAL: The patient is an 81-year-old female with profound dementia. She has agitation. She has been in the [facility] for a long time. She was admitted with probable aspiration. PHYSICAL EXAMINATION: Please see the dictated note. PERTINENT LABORATORY AND X-RAY STUDIES: Imaging studies were numerous including head CT, KUB, CT chest and abdomen. Followup x-ray done on the fifth hospital day showed a slight improvement, still left lung opacities, small left pleural effusion which is improved from admission. Her hemoglobin was 10.7 g/dL. White count on admission was 28,600, repeated was down to 11,300. This is a leukemoid reaction. Chemistry panel: Stable BUN and creatinine, electrolytes. Creatinine was 0.7 mg%, potassium 4.6 mEq. Toxicology screen was positive for benzodiazepines, which is on schedule. Serology negative for coronavirus, influenza A and B. Urinalysis is unremarkable. COURSE IN THE HOSPITAL: The patient was admitted. She received 6 full days of intravenous antibiotics. Speech Therapy saw the patient on a regular basis and the recommended dysphagia 1 diet, this was implemented. Her respiratory status is stable. She is on persistent 2 liters of nasal cannula. By the seventh hospital day, her vital signs were stable, she had 94% saturation on 2 liters which is her baseline. Blood pressure was adequate, pulse is 90 and regular, she was afebrile. She is discharged home then with 7 more days of Augmentin p.o. 500 mg/125 one p.o. b.i.d. for 7 more days, continuation of her albuterol inhaler every 4 hours, aspirin one daily, Ativan 0.5 mg every 6 hours p.r.n. agitation, magnesium citrate p.r.n., metoprolol, olanzapine, Keppra 1000 mg b.i.d. She is a DNR per advanced directive. Her prognosis is guarded. She will follow dysphagia 1 diet. Total discharge time spent 39 minutes. OSCAR/JIN DR: Vincent TID: [id number]
[2022-04-02] MEDS ORDERED: LACTOBACILLUS RHAMNOSUS GG 1 CAPSULE. PO SCH (21:00)
--- NOTE | 2022-04-13 16:58 | EKG ---
[address] [address] Test Date: 2022-03-27 Test Time: 23:12:00 Pat Name: GRABIEL DUKES Department: Room: 125 A Gender: F Explosive Ordnance Manager: : 1940 Requested By: TONI WANG Order Number: [id number] Reading MD: Measurements Intervals [place] Rate: 107 P: OK: QRS: 68 QRSD: 86 T: 99 QT: 304 QTc: 406 Interpretive Statements Atrial fibrillation Paired ventricular premature complexes Borderline repolarization abnormality No previous ECG available for comparison
--- NOTE | 2022-04-13 17:01 | EKG ---
[address] [address] Test Date: 2022-03-28 Test Time: 05:02:46 Pat Name: GRABIEL DUKES Department: Room: 125 A Gender: F Inspector Multifocal Lens: : 1940 Requested By: TONI WANG Order Number: [id number] Reading MD: Measurements Intervals [place] Rate: 85 P: 73 OK: 149 QRS: 61 QRSD: 84 T: 74 QT: 379 QTc: 451 Interpretive Statements Sinus rhythm No previous ECG available for comparison
== END 2022-04-02 11:00 | DRG 177 ==
LOC: ER 21:05 → 1 SOUTH 03-28 01:49
PROVIDERS: ADMIT Internal Medicine; ATTEND Internal Medicine
DX: J69.0 Pneumonitis due to inhalation of food and vomit (principal); J96.00 Acute respiratory failure, unspecified whether with hypoxia or hypercapnia; E87.3 Alkalosis; F03.91 Unspecified dementia, unspecified severity, with behavioral disturbance; G93.40 Encephalopathy, unspecified; I47.1 Supraventricular tachycardia; J44.0 Chronic obstructive pulmonary disease with (acute) lower respiratory infection; N39.0 Urinary tract infection, site not specified; E11.319 Type 2 diabetes mellitus with unspecified diabetic retinopathy without macular edema; E78.5 Hyperlipidemia, unspecified; G40.909 Epilepsy, unspecified, not intractable, without status epilepticus; I10 Essential (primary) hypertension; I25.10 Atherosclerotic heart disease of native coronary artery without angina pectoris; I48.0 Paroxysmal atrial fibrillation; I67.9 Cerebrovascular disease, unspecified; K80.20 Calculus of gallbladder without cholecystitis without obstruction; Z66 Do not resuscitate; Z86.73 Personal history of transient ischemic attack (TIA), and cerebral infarction without residual deficits; Z87.440 Personal history of urinary (tract) infections; D64.9 Anemia, unspecified; F32.A Depression, unspecified; F41.9 Anxiety disorder, unspecified; M19.90 Unspecified osteoarthritis, unspecified site; T42.0X5A Adverse effect of hydantoin derivatives, initial encounter
CPT/HCPCS: 36415; 36569; 36600; 70450; 71045; 71250; 74018; 74176; 76700; 80048; 80053; 80076; 80307; 81001; 82550; 82803; 83605; 83690; 83735; 83880; 84443; 84484; 85007; 85025; 85027; 85379; 85610; 85730; 87040; 87077; 87086; 87186; 87428; 93005; 96365; 96372; 96375; J0696; J1650; J1953; J2060; J2543; J3370; J3490; J7040; J7050; J7120; U0003; 92610; 97110; 97530; 97535; 99285-25; J7030; J7613